=== PATIENT | female | born 1935 | race Caucasian/White ===

== ENCOUNTER → 2020-09-15 10:35 | Outpatient (CLI) | payer OTHER, SELFPAY ==
[2020-09-15 11:21] LABS: COVID19 -Nasal RAPID Negative (Negative)
== END ==
PROVIDERS: PCP Student in an Organized Health Care Education/Training Program; Visit Provider Student in an Organized Health Care Education/Training Program
DX: Z11.8 Encounter for screening for other infectious and parasitic diseases (principal); Z03.818 Encounter for observation for suspected exposure to other biological agents ruled out
CPT/HCPCS: 87635

== ENCOUNTER → 2020-09-16 16:31 | Outpatient (CLI) | payer OTHER, SELFPAY ==
[2020-09-16 17:38] LABS: Alanine Aminotransferase 154 IU/L (<35); Albumin 3.1 g/dL (3.5-5.0); Albumin Globulin Ratio 1.4 (1.0-2.8); Alkaline Phosphatase 142 U/L (38-126); Aspartate Aminotransferase 28 IU/L (14-36); BUN Creatinine Ratio 26.8 (6-22); Bilirubin Total 1.9 mg/dL (0.2-1.3); Blood Urea Nitrogen 15 mg/dL (7-17); Calcium 8.4 mg/dL (8.4-10.2); Carbon Dioxide 33 mmol/L (22-32); Chloride 101 mmol/L (98-107); Estimated Glomerular Filt Rate > 60.0 mL/min (>60); Globulin 2.2 g/dL (1.7-4.1); Glucose 209 mg/dL (80-110); HEMOLYSIS < 15 (0-50); Sodium 135 mmol/L (137-145); Total Protein 5.3 g/dL (6.3-8.2)
[2020-09-16 17:42] LABS: Hematocrit 34.5 % (36-46); Hemoglobin 11.7 g/dL (12.0-16.0); Mean Corpuscular HGB Conc 33.8 % (30-36); Mean Corpuscular Volume 94.6 fL (80-100); Platelet Count 181 X10^3/uL (150-400); Red Blood Cell Count 3.65 X10^6/uL (4.0-5.2); Red Cell Distribution Width 14.1 % (11.6-14.8); White Blood Cell Count 5.6 X10^3/uL (4.5-11.0)
[2020-09-16 18:10] LABS: Neutrophils Absolute Manual 3304 /uL (3000-5900); Poikilocytosis 1+; Total Cells Counted 100
[2020-09-16 19:24] LABS: Vitamin D 25 Hydroxy (D3) 30.3 ng/mL (30.0-100.0)
[2020-09-17 07:42] LABS: Fructosamine 260 umol/L (0-285)
== END ==
PROVIDERS: PCP Student in an Organized Health Care Education/Training Program; Referring Provider Student in an Organized Health Care Education/Training Program; Visit Provider Student in an Organized Health Care Education/Training Program
DX: C85.10 Unspecified B-cell lymphoma, unspecified site (principal); D64.9 Anemia, unspecified; E11.9 Type 2 diabetes mellitus without complications; E55.9 Vitamin D deficiency, unspecified
CPT/HCPCS: 36415; 80053; 82306; 82985; 85025

== ENCOUNTER 2020-09-20 08:08 | Inpatient (IN) | payer OTHER, SELFPAY ==
[2020-09-20] VITALS (24 sets, daily range): BP systolic 115–149; BP diastolic 51–74; PULSE 61–129; RESP 15–20; TEMP 35.8–36.7; O2SAT 94–100; BMI 30.2
--- NOTE | 2020-09-20 08:39 | ED.SKABFB ---
HPI - Skin/Abscess/Foreign Bdy General Chief complaint: Skin/Abscess/Foreign Body Stated complaint: post surgical abcess rt hip Time Seen by Provider: 09/20/20 08:33 Source: patient and family Mode of arrival: Wheelchair Limitations: physical limitation History of Present Illness HPI narrative: Patient is an 85-year-old female history of diabetes, lymphoma COPD presenting with incisional abscess of her right hip. She had a total hip arthroplasty in July in [place]. Since the surgery she has had some swelling which she was told with scar tissue however when she arrived in [place] 1 week ago her daughter noticed that she had some erythema. She was started on Bactrim 4 days ago, all the redness and swelling has continued to worsen. She says it hurts when she walks. She denies any fever or chills. MD complaint: abscess/boil Related Data Home Medications Medication Instructions Recorded Confirmed alprazolam 0.25 mg tablet 0.25 mg PO BEDTIME PRN 09/16/20 09/16/20 diltiazem HCl 240 mg 240 mg PO DAILY 09/16/20 09/16/20 capsule,extended release 24 hr escitalopram oxalate 10 mg tablet 10 mg PO DAILY 09/16/20 09/16/20 gabapentin 100 mg capsule 100 mg PO DAILY 09/16/20 09/16/20 glimepiride 2 mg tablet 2 mg PO DAILY 09/16/20 09/16/20 insulin lispro 100 unit/mL 10 unit SUBCUT TID 09/16/20 09/16/20 subcutaneous pen losartan 50 mg tablet 50 mg PO DAILY 09/16/20 09/16/20 pantoprazole 40 mg tablet,delayed 40 mg PO DAILY 09/16/20 09/16/20 release tramadol 50 mg tablet 50 mg PO TID PRN 09/16/20 09/16/20 Previous Rx's Medication Instructions Recorded insulin glargine U-300 conc 300 22 unit SUBCUT DAILY #6 ml 09/16/20 unit/mL (3 mL) subcutaneous pen sulfamethoxazole 800 1 tab PO Q12H 10 Days #20 tab 09/16/20 mg-trimethoprim 160 mg tablet Allergies Allergy/AdvReac Type Severity Reaction Status Date / Time No Known Drug Allergies Allergy Unverified 09/16/20 15:11 Review of Systems Review of Systems ROS Unobtainable: All systems reviewed & are unremarkable except as noted in HPI and below Constitutional Constitutional: Denies chills, Denies fever(s), Denies lethargy and Denies weakness Cardiovascular Cardiovascular: Denies chest pain, Denies irregular heart rhythm, Denies lightheadedness, Denies palpitations, Denies dyspnea, Denies dyspnea on exertion and Denies orthopnea Respiratory Respiratory: Denies cough, Denies dyspnea, Denies dyspnea on exertion and Denies wheezing Gastrointestinal Gastrointestinal: Denies abdominal pain, Denies change in bowel habits, Denies diarrhea, Denies nausea and Denies vomiting Integumentary/Breasts Skin/Breast: Reports erythema, Reports rash and Reports skin swelling Neurologic Neurologic: Denies weakness Endocrine Endocrine: Denies palpitations Allergic/Immunologic Allergic/Immunologic: Denies wheezing Patient History Medical History Autoimmune hemolytic anemia (Acute) Femur fracture, right (Acute) Social History household members: none Smoking Status: Former smoker alcohol intake: never Smoking Status: Former smoker Substance Use Type: does not use Exam Initial Vital Signs Initial Vital Signs: Vital Signs Temperature 97.6 F 09/20/20 08:10 Pulse Rate 75 09/20/20 08:10 Respiratory Rate 18 09/20/20 08:10 Blood Pressure 133/61 09/20/20 08:10 Pulse Oximetry 97 09/20/20 08:10 GENERAL: Alert pleasant well-appearing elderly female HEENT: Head atraumatic,EOMI, pupils reactive, face symmetric, moist mucous membranes CARDIOVASCULAR: Regular rate and rhythm without murmurs, rubs or gallops. RESPIRATORY: Breath sounds equal bilaterally, no wheezes rales or rhonchi. ABDOMEN: Soft, nontender. Normoactive bowel sounds all 4 quadrants. No guarding or rebound. EXTREMITIES: Normal range of motion, no clubbing or edema. Neurovascularly intact NEUROLOGICAL: Alert and oriented x4.Normal gait and speech. SKIN: Right hip incision is erythematous with swelling in fluctuation no drainage Course Orders Ordered: ED Orders 09/20/20 08:40 C-Reactive Protein Quant Stat Complete Blood Count AUTO DIFF Stat Comprehensive Metabolic Panel Stat Erythrocyte Sedimentation Rate Stat Lactate (Lactic Acid) Stat Procalcitonin Stat 09/20/20 08:43 COVID19 Stat 09/20/20 08:55 Blood Culture Stat 09/20/20 09:52 XR hip w pel if done RT 2V Stat 09/20/20 09:53 Consult to Orthopedic Surgery Stat Vital Signs Vital signs: Vital Signs - 8 hr 09/20/20 08:10 09/20/20 08:48 09/20/20 09:00 Temperature 97.6 F Pulse Rate 75 65 61 Respiratory Rate 18 Blood Pressure 133/61 Pulse Oximetry 97 98 99 09/20/20 09:30 09/20/20 10:05 09/20/20 10:30 Temperature Pulse Rate 61 62 73 Respiratory Rate Blood Pressure 119/59 L Pulse Oximetry 97 98 97 09/20/20 10:31 Temperature Pulse Rate 71 Respiratory Rate Blood Pressure 120/56 L Pulse Oximetry 97 MDM - Skin/Abscess/Foreign Bdy Lab Data Attestation: I reviewed the patient's lab results. Result diagrams: 09/20/20 08:40 09/20/20 08:40 Labs: Lab Results 09/20/20 09/20/20 09/20/20 Range/Units 08:40 08:40 08:40 WBC 5.6 (4.5-11.0) X10^3/uL RBC 3.29 L (4.0-5.2) X10^6/uL Hgb 10.4 L (12.0-16.0) g/dL Hct 30.5 L (36-46) % MCV 92.7 (80-100) fL MCH 31.5 (26-34) PG MCHC 34.0 (30-36) % RDW 13.7 (11.6-14.8) % Plt Count 197 (150-400) X10^3/uL Neut % (Auto) 57.6 (50-75) % Lymph % (Auto) 30.3 (25-40) % Hutchinson % (Auto) 11.9 (3-14) % Eos % (Auto) 0.1 L (2-4) % Baso % (Auto) 0.1 (0-2) % Neut # (Auto) 3200 (1157-1582) /uL Lymph # (Auto) 1700 (3594-9440) /uL Hutchinson # (Auto) 700 (0-900) /uL Eos # (Auto) 0 (0-450) /uL Baso # (Auto) 0 (0-100) /uL ESR (0-20) MM/HR Sodium 134 L (137-145) mmol/L Potassium 4.4 (3.4-5.1) mmol/L Chloride 104 (98-107) mmol/L Carbon Dioxide 27 (22-32) mmol/L BUN 13 (7-17) mg/dL Creatinine 0.72 (0.52-1.04) mg/dL Estimated GFR > 60.0 (>60) mL/min BUN/Creatinine Ratio 18.1 (6-22) Glucose 271 H (80-110) mg/dL Lactate (0.7-2.1) mmol/L Calcium 8.4 (8.4-10.2) mg/dL Total Bilirubin 1.4 H (0.2-1.3) mg/dL AST 19 (14-36) IU/L ALT 40 H (<35) IU/L Alkaline Phosphatase 107 (38-126) U/L C-Reactive Protein (<1.0) mg/dL Total Protein 5.2 L (6.3-8.2) g/dL Albumin 3.0 L (3.5-5.0) g/dL Globulin 2.2 (1.7-4.1) g/dL Albumin/Globulin Ratio 1.4 (1.0-2.8) Procalcitonin < 0.05 (<0.5) ng/mL COVID-19 PCR (Negative) 09/20/20 09/20/20 09/20/20 Range/Units 08:40 08:40 08:40 WBC (4.5-11.0) X10^3/uL RBC (4.0-5.2) X10^6/uL Hgb (12.0-16.0) g/dL Hct (36-46) % MCV (80-100) fL MCH (26-34) PG MCHC (30-36) % RDW (11.6-14.8) % Plt Count (150-400) X10^3/uL Neut % (Auto) (50-75) % Lymph % (Auto) (25-40) % Hutchinson % (Auto) (3-14) % Eos % (Auto) (2-4) % Baso % (Auto) (0-2) % Neut # (Auto) (7601-3681) /uL Lymph # (Auto) (9433-7415) /uL Hutchinson # (Auto) (0-900) /uL Eos # (Auto) (0-450) /uL Baso # (Auto) (0-100) /uL ESR 45 H (0-20) MM/HR Sodium (137-145) mmol/L Potassium (3.4-5.1) mmol/L Chloride (98-107) mmol/L Carbon Dioxide (22-32) mmol/L BUN (7-17) mg/dL Creatinine (0.52-1.04) mg/dL Estimated GFR (>60) mL/min BUN/Creatinine Ratio (6-22) Glucose (80-110) mg/dL Lactate 1.9 (0.7-2.1) mmol/L Calcium (8.4-10.2) mg/dL Total Bilirubin (0.2-1.3) mg/dL AST (14-36) IU/L ALT (<35) IU/L Alkaline Phosphatase (38-126) U/L C-Reactive Protein 4.3 H (<1.0) mg/dL Total Protein (6.3-8.2) g/dL Albumin (3.5-5.0) g/dL Globulin (1.7-4.1) g/dL Albumin/Globulin Ratio (1.0-2.8) Procalcitonin (<0.5) ng/mL COVID-19 PCR (Negative) 09/20/20 Range/Units 08:43 WBC (4.5-11.0) X10^3/uL RBC (4.0-5.2) X10^6/uL Hgb (12.0-16.0) g/dL Hct (36-46) % MCV (80-100) fL MCH (26-34) PG MCHC (30-36) % RDW (11.6-14.8) % Plt Count (150-400) X10^3/uL Neut % (Auto) (50-75) % Lymph % (Auto) (25-40) % Hutchinson % (Auto) (3-14) % Eos % (Auto) (2-4) % Baso % (Auto) (0-2) % Neut # (Auto) (6795-9090) /uL Lymph # (Auto) (0311-4127) /uL Hutchinson # (Auto) (0-900) /uL Eos # (Auto) (0-450) /uL Baso # (Auto) (0-100) /uL ESR (0-20) MM/HR Sodium (137-145) mmol/L Potassium (3.4-5.1) mmol/L Chloride (98-107) mmol/L Carbon Dioxide (22-32) mmol/L BUN (7-17) mg/dL Creatinine (0.52-1.04) mg/dL Estimated GFR (>60) mL/min BUN/Creatinine Ratio (6-22) Glucose (80-110) mg/dL Lactate (0.7-2.1) mmol/L Calcium (8.4-10.2) mg/dL Total Bilirubin (0.2-1.3) mg/dL AST (14-36) IU/L ALT (<35) IU/L Alkaline Phosphatase (38-126) U/L C-Reactive Protein (<1.0) mg/dL Total Protein (6.3-8.2) g/dL Albumin (3.5-5.0) g/dL Globulin (1.7-4.1) g/dL Albumin/Globulin Ratio (1.0-2.8) Procalcitonin (<0.5) ng/mL COVID-19 PCR Negative (Negative) Imaging Data Extremity x-ray #1: Radiologist's Impression: PROCEDURE: XR HIP W PEL IF DONE RT 2V INDICATIONS: pain TECHNIQUE: AP pelvis with lateral view(s) of the right hip(s). COMPARISON: None. FINDINGS: Bones: No fractures or dislocations. Pelvic ring appears intact. No suspicious bony lesions. Right hip arthroplasty has been performed. Soft tissues: The visualized bowel gas pattern is normal. No suspicious soft tissue calcifications. IMPRESSION: Right hip arthroplasty. No acute fracture. No osseous lesion. If symptoms and/or clinical suspicion for pathology persist, further assessment with repeat, or advanced imaging (e.g., CT or bone scan) may be helpful for further assessment. Dictated by: Daryl Thomas M.D. on 09/20/2020 at 9:04 MDM Narrative Medical decision making narrative: Dr. Rendon, consulted. Keep NPO, no iv antibiotics at this time. Will go to OR this afternoon for wash out Dr. Gray accepts Discharge Plan Departure Patient Disposition: Admitted As Inpatient Clinical Impression: Incisional abscess, Status post total replacement of right hip Discharge Date/Time: 09/20/20 11:59 Referrals: Ulises Alva MD [Primary Care Provider] - Admit Date/Time: 09/20/20 10:40 Admit Provider: Nanda Gray
[2020-09-20 08:51] LABS: Add Manual Diff / Slide Review NO; Basophils Absolute Auto 0 /uL (0-100); Basophils Percent Auto 0.1 % (0-2); Eosinophils Absolute Auto 0 /uL (0-450); Eosinophils Percent Auto 0.1 % (2-4); Hematocrit 30.5 % (36-46); Hemoglobin 10.4 g/dL (12.0-16.0); Lymphocytes Absolute Auto 1700 /uL (1100-4500); Lymphocytes Percent Auto 30.3 % (25-40); Mean Corpuscular Hemoglobin 31.5 PG (26-34); Mean Corpuscular Volume 92.7 fL (80-100); Monocytes Absolute Auto 700 /uL (0-900); Monocytes Percent Auto 11.9 % (3-14); Neutrophils Absolute Auto 3200 /uL (1500-7000); Neutrophils Percent Auto 57.6 % (50-75); Platelet Count 197 X10^3/uL (150-400); Red Blood Cell Count 3.29 X10^6/uL (4.0-5.2); Red Cell Distribution Width 13.7 % (11.6-14.8); White Blood Cell Count 5.6 X10^3/uL (4.5-11.0)
[2020-09-20 09:03] LABS: Alanine Aminotransferase 40 IU/L (<35); Albumin Globulin Ratio 1.4 (1.0-2.8); Alkaline Phosphatase 107 U/L (38-126); Aspartate Aminotransferase 19 IU/L (14-36); BUN Creatinine Ratio 18.1 (6-22); Bilirubin Total 1.4 mg/dL (0.2-1.3); Blood Urea Nitrogen 13 mg/dL (7-17); Calcium 8.4 mg/dL (8.4-10.2); Carbon Dioxide 27 mmol/L (22-32); Chloride 104 mmol/L (98-107); Estimated Glomerular Filt Rate > 60.0 mL/min (>60); Globulin 2.2 g/dL (1.7-4.1); Glucose 271 mg/dL (80-110); HEMOLYSIS < 15 (0-50); Lactate (Lactic Acid) 1.9 mmol/L (0.7-2.1); Potassium 4.4 mmol/L (3.4-5.1); Sodium 134 mmol/L (137-145); Total Protein 5.2 g/dL (6.3-8.2)
[2020-09-20 09:16] LABS: COVID19 -Nasal RAPID Negative (Negative)
[2020-09-20 09:17] LABS: Procalcitonin < 0.05 ng/mL (<0.5)
--- NOTE | 2020-09-20 09:52 | DI.RAD.S_ITS ---
PROCEDURE: XR HIP W PEL IF DONE RT 2V INDICATIONS: pain TECHNIQUE: AP pelvis with lateral view(s) of the right hip(s). COMPARISON: None. FINDINGS: Bones: No fractures or dislocations. Pelvic ring appears intact. No suspicious bony lesions. Right hip arthroplasty has been performed. Soft tissues: The visualized bowel gas pattern is normal. No suspicious soft tissue calcifications. IMPRESSION: Right hip arthroplasty. No acute fracture. No osseous lesion. If symptoms and/or clinical suspicion for pathology persist, further assessment with repeat, or advanced imaging (e.g., CT or bone scan) may be helpful for further assessment. Dictated by: Daryl Thomas M.D. on 09/20/2020 at 9:04 Approved by: Daryl Thomas M.D. on 09/20/2020 at 9:05
[2020-09-20 10:09] LABS: C-Reactive Protein Quant 4.3 mg/dL (<1.0)
[2020-09-20 10:19] LABS: Erythrocyte Sedimentation Rate 45 MM/HR (0-20)
--- NOTE | 2020-09-20 13:54 | PM.HP.1 ---
History of Present Illness History of Present Illness Date Patient Seen: 09/20/20 Time Patient Seen: 13:55 Date of Onset of Symptoms: 09/16/20 Chief complaint: post surgical abcess rt hip Narrative: Peace is 85-year-old female with a history of COPD lymphoma and diabetes that had a fall and sustained a right hip fracture on 07/16/2020. This happened when she was living down in [place]. She was previously living independently before the hip fracture. In July she underwent hemiarthroplasty replacement at [facility] is on a with Dr. Orta. She had an intraoperative greater trochanter fracture that was fixed with a claw plate. She states she also had a blood transfusion after the procedure and had a immune reaction to it and had steroids for several weeks. After release from the hospital she was moved to [facility] with her daughter Genesis Crane who is her power of [place] attorney. She is currently capsule anti in the independent living section. She states that even while in the intermediate after the fracture she had always had a area of the incision that was thick and hard. She states she was told this was just scar tissue. Then over the last week or so the distal end of the incision has gotten red and swollen and more painful. She was seen by her PCP Dr. helms on 09/16/2020 and Bactrim was prescribed. Since that time she states the pain and swelling has gotten worse and she believes there is no some drainage. They presented to the emergency room this morning where they were found to have swelling and scant draining at the distal aspect of the incision. Of note she has also been treated for UTI over the last week and just finished the Cipro prescription. She denies any fevers. She has been ambulatory. Over the last week it has become more painful to walk. She also sustained a left proximal humerus fracture during the fall this was treated non operatively. She endorses pain and decreased range of motion in the left shoulder but is otherwise doing well. She takes vitamins. She had a DEXA scan years ago but does not know the results. She does not currently take any bisphosphonates or formal osteoporosis treatment. She has diabetes. She does not know what her current hemoglobin A1c is. States that had been pretty well controlled before her injury. Patient History Medical History (Updated 09/20/20 @ 14:17 by Mariana Rendon MD) Autoimmune hemolytic anemia (Acute) Femur fracture, right (Acute) Family & Social History Social History: household members none Prior Living Arrangements [facility] Facility Safety & Behavioral: Feels Safe in Current Yes Environment Been Physically Hurt or No Threatened By a Person Suicidal Ideation Description None Suicide Plan Description No Plan Tobacco & Substance use: Smoking Status Former smoker alcohol intake never Substance Use Type does not use Meds Home Medications and Allergies Home Medications Medication Instructions Recorded Confirmed Type alprazolam 0.25 mg tablet 0.25 mg PO BEDTIME PRN 09/16/20 09/16/20 History diltiazem HCl 240 mg 240 mg PO DAILY 09/16/20 09/16/20 History capsule,extended release 24 hr escitalopram oxalate 10 mg tablet 10 mg PO DAILY 09/16/20 09/16/20 History gabapentin 100 mg capsule 100 mg PO DAILY 09/16/20 09/16/20 History glimepiride 2 mg tablet 2 mg PO DAILY 09/16/20 09/16/20 History insulin glargine U-300 conc 300 22 unit SUBCUT DAILY #6 ml 09/16/20 09/16/20 Rx unit/mL (3 mL) subcutaneous pen insulin lispro 100 unit/mL 10 unit SUBCUT TID 09/16/20 09/16/20 History subcutaneous pen losartan 50 mg tablet 50 mg PO DAILY 09/16/20 09/16/20 History pantoprazole 40 mg tablet,delayed 40 mg PO DAILY 09/16/20 09/16/20 History release sulfamethoxazole 800 1 tab PO Q12H 10 Days #20 tab 09/16/20 09/16/20 Rx mg-trimethoprim 160 mg tablet tramadol 50 mg tablet 50 mg PO TID PRN 09/16/20 09/16/20 History Allergies Allergy/AdvReac Type Severity Reaction Status Date / Time No Known Drug Allergies Allergy Unverified 09/16/20 15:11 Review of Systems Constitutional Constitutional: Denies anorexia, Denies chills, Denies difficulty sleeping, Denies fatigue and Denies fever(s) Cardiovascular Cardiovascular: Denies chest pain and Denies dyspnea on exertion Respiratory Respiratory: Denies dyspnea on exertion Genitourinary Comments: Endorses recent UTI just finished Cipro prescription Musculoskeletal Musculoskeletal: Reports abnormal gait and Reports arthralgias Comments: Incision swelling and redness right hip. History recent fall hip fracture and hemiarthroplasty Integumentary/Breasts Skin/Breast: Reports erythema and Reports skin swelling Neurologic Neurologic: Reports abnormal gait Endocrine Endocrine: Denies fatigue Hematologic/Lymphatic Comments: Lymphoma. Required transfusion after hip surgery Exam Vital Signs (past 8 hours): - 09/20/20 08:10 09/20/20 08:48 09/20/20 09:00 Temperature 97.6 F Pulse Rate 75 65 61 Respiratory Rate 18 Blood Pressure 133/61 Pulse Oximetry 97 98 99 09/20/20 09:30 09/20/20 10:05 09/20/20 10:30 Temperature Pulse Rate 61 62 73 Respiratory Rate Blood Pressure 119/59 L Pulse Oximetry 97 98 97 09/20/20 10:31 09/20/20 11:00 09/20/20 11:01 Temperature Pulse Rate 71 76 75 Respiratory Rate Blood Pressure 120/56 L 127/57 L Pulse Oximetry 97 99 99 09/20/20 11:30 09/20/20 11:31 09/20/20 12:00 Temperature 98.1 F Pulse Rate 75 75 74 Respiratory Rate 15 Blood Pressure 115/57 L 126/59 L Pulse Oximetry 98 98 100 Oxygen Delivery Method Room Air Narrative Exam Narrative: General examination: Alert oriented female no acute distress, sitting up in bed. Daughter is POA and is at bedside Respiratory exam: Lungs clear to auscultation bilaterally. No use of accessory muscles. Answers questions easily Heart exam regular rate and rhythm Abdomen soft nontender Musculoskeletal exam: Reduced range of motion left shoulder 2nd toe recent trauma has full range of motion of the elbow and wrist. Full range of motion right shoulder elbow and wrist. Left lower extremity negative logroll full range of motion 5/5 dorsiflexion plantar flexion. Soft calfs. Left leg negative logroll. There is a long posterolateral incision lateral aspect extends down along the lateral thigh distal 4 cm show erythema redness swelling fluctuance. No active drainage but there is some crusting. This is tender to palpation. Swelling is localized to this area. Thigh is otherwise soft. Remainder of proximal aspect of incision is pristine and well healed. Calf is soft. 5/5 dorsiflexion plantar flexion. Sensation grossly intact to light touch Objective Labs Result Diagrams: 09/20/20 08:40 09/20/20 08:40 Labs: Laboratory Results - last 24 hr 11/15/20 11/15/20 11/15/20 08:40 08:40 08:40 WBC 5.6 RBC 3.29 L Hgb 10.4 L Hct 30.5 L MCV 92.7 MCH 31.5 MCHC 34.0 RDW 13.7 Plt Count 197 Neut % (Auto) 57.6 Lymph % (Auto) 30.3 Mclean % (Auto) 11.9 Eos % (Auto) 0.1 L Baso % (Auto) 0.1 Neut # (Auto) 3200 Lymph # (Auto) 1700 Mclean # (Auto) 700 Eos # (Auto) 0 Baso # (Auto) 0 ESR Sodium 134 L Potassium 4.4 Chloride 104 Carbon Dioxide 27 BUN 13 Creatinine 0.72 Estimated GFR > 60.0 BUN/Creatinine Ratio 18.1 Glucose 271 H Lactate Calcium 8.4 Total Bilirubin 1.4 H AST 19 ALT 40 H Alkaline Phosphatase 107 C-Reactive Protein Total Protein 5.2 L Albumin 3.0 L Globulin 2.2 Albumin/Globulin Ratio 1.4 Procalcitonin < 0.05 COVID-19 PCR 09/20/20 09/20/20 09/20/20 08:40 08:40 08:40 WBC RBC Hgb Hct MCV MCH MCHC RDW Plt Count Neut % (Auto) Lymph % (Auto) Mclean % (Auto) Eos % (Auto) Baso % (Auto) Neut # (Auto) Lymph # (Auto) Mclean # (Auto) Eos # (Auto) Baso # (Auto) ESR 45 H Sodium Potassium Chloride Carbon Dioxide BUN Creatinine Estimated GFR BUN/Creatinine Ratio Glucose Lactate 1.9 Calcium Total Bilirubin AST ALT Alkaline Phosphatase C-Reactive Protein 4.3 H Total Protein Albumin Globulin Albumin/Globulin Ratio Procalcitonin COVID-19 PCR 09/20/20 08:43 WBC RBC Hgb Hct MCV MCH MCHC RDW Plt Count Neut % (Auto) Lymph % (Auto) Mclean % (Auto) Eos % (Auto) Baso % (Auto) Neut # (Auto) Lymph # (Auto) Mclean # (Auto) Eos # (Auto) Baso # (Auto) ESR Sodium Potassium Chloride Carbon Dioxide BUN Creatinine Estimated GFR BUN/Creatinine Ratio Glucose Lactate Calcium Total Bilirubin AST ALT Alkaline Phosphatase C-Reactive Protein Total Protein Albumin Globulin Albumin/Globulin Ratio Procalcitonin COVID-19 PCR Negative Assessment & Plan Assessment and plan (1) Non Hodgkin's lymphoma: Problem details: Treatment per Internal Medicine. Plan I and D of hip today. Do not anticipate large blood loss from the surgery but will monitor labs postop. Status: Acute (2) Type 2 diabetes mellitus: Problem details: Home medications. Blood sugar management per Internal Medicine. Recommend tight glycemic control to aid with healing. Patient does have history of being on a couple weeks of steroids during her hospitalization after hip fracture so overall present control may not be as ideal as it was previously. Status: Acute (3) History of hemiarthroplasty of hip: Problem details: History of right hemiarthroplasty for hip fracture. Patient had intraoperative greater troch fracture was fixed with a claw plate. Fixation is stable on x-ray. Does have developed abscess at the distal aspect of the incision. On inspection I think this is likely just involving the distal aspect of the incision and not track deep to the joint but I recommend a surgical formal washout and debridement. An intraoperative cultures. Status: Acute (4) Deep incisional surgical site infection: Problem details: Patient presents with swelling of redness and fluctuance at the distal aspect of her long posterolateral incision from [place]. She has had some swelling she states since the surgery but the redness and increased swelling a just began over the last week. On inspection this involves the distal 3-4 cm of the long posterior lateral incision. As the remainder of the incision up closer to the level of the joint is well healed. But she does have an area of fluctuance and impending drainage. She has been recommended for formal operative irrigation and debridement of the abscess including a pulsatile lavage and closure. Discussed in detail the risks benefits and alternatives to the procedure. Discussed of based on the extent of the infection may require additional procedures a repeat washout. If infection does track into the joint we discussed or risks for need for hardware and exchange and/or prolonged IV antibiotics. Based on the appearance today I do not think this is likely I think that all local control of the soft tissue infection of the distal aspect of the wound should be possible. Unfortunately she has been on oral antibiotics for about 5 days. We discussed that a bacteria may not grow on the intraoperative cultures but that she would then be treated empirically. If an organism does grow we will tailor her antibiotics appropriately. Anticipate a few days of IV antibiotics on the floor and if infection is limited as expected within be able to either switch to a short course IV outpatient or to oral antibiotics. The risks and benefits of the procedure have been discussed with the patient and her daughter, LYNDON, and they have been given an opportunity to ask questions. The risks of surgery include but are not limited to infection, need for additional procedures, persistence of pain, damage to nerves and blood vessels, blood loss, DVT, PE, cardiopulmonary complications and . The patient and POA expressed a thorough understanding of the risks and benefits of surgery and has elected to proceed. Consent was signed today. ESR is elevated at 45 and CRP is 4.3. Patient is afebrile. Vital signs are stable. White count is 5.6. She is not on anticoagulation. Hemoglobin is 10.9. COVID test today is negative Status: Acute Quality VTE Deep Vein Thrombosis/Pulmonary Embolism Present on Admission: No
[2020-09-20] MEDS: SODIUM CHLORIDE 0.9% 1,000 ML 75 ML IV (13:57)
--- NOTE | 2020-09-20 14:19 | PM.PREOP ---
Pre-operative Note COVID-19 COVID-19 status: Negative Result date/Date tested (Pos, Neg/Pending): 09/20/20 Interval Note History & Physical reviewed/Exam performed by Physician: Yes Changes to H&P: No
--- NOTE | 2020-09-20 14:40 | PM.OP.1 ---
Operative Date/Time/Diagnoses Date of procedure: 09/20/20 Time of procedure: 15:10 Pre-op diagnosis: Deep surgical site incision infection History hemiarthroplasty for right hip fracture Diabetes type 2 Lymphoma Post-op diagnosis: same Procedure & Clinicians Procedure: Irrigation debridement right hip surgical site infection CPT code 38051 Same procedure as scheduled: Yes Indications: Patient is an 85-year-old female with a history of diabetes type 2 and lymphoma that sustained a right hip fracture in July of 2020 while she was in [place]. This was fixed with a hemiarthroplasty. She did intra greater troch fracture that was fixed with a claw plate. Since then she was discharged and moved to [facility]. Over the last week she has noticed erythema redness and increased swelling of the distal aspect of her incision. She is then to have a infection and abscess at the distal aspect of her incision was indicated for formal operative debridement and cultures. The risks and benefits of the procedure have been discussed with the patient and her POA which is her daughter. They have been given the opportunity to ask questions. The risks of surgery include but are not limited to infection, persistence of pain, need for additional procedures, damage to nerves and blood vessels, posttraumatic arthritis, DVT, PE, cardiopulmonary complications and . The patient expressed a thorough understanding of the risks and benefits of surgery and has elected to proceed. Consent was signed. Surgeon: Mariana Rendon Click Yes if Unassisted: Yes Anesthesia Type: General and Local Operative Notes Findings: Deep infection with purulence abscess at the distal 5 cm of incision of violating the fascia but no tracking proximally to the hardware. Closure Type: primary Specimen(s): other (Culture and tissue sent for Gram stain, culture and PCR) Prosthetic devices, grafts, tissues, transplants, or devices: Cultures and tissue sent. Estimated Blood Loss (mL): 20 Blood products transfused: none Tourniquet time (min): 0 Procedure in detail: Patient was seen in the preoperative area the site of surgery was marked and informed consent confirmed. Patient was brought back to the operating room by the anesthesia team positioned supine on the operative table. A general anesthetic was administered. The patient was then positioned sloppy lateral with ipsilateral hip bumps. An SCD was placed on the down lower extremity. The right lower extremity was prepped and draped in the standard sterile fashion. A formal time-out procedure was performed confirming the patient's side and site of surgery. Antibiotics were held for intraoperative cultures. Attention turned to the patient's right thigh. Distal 5 cm of the incision a demonstrated erythema and swelling. Proximal aspect of the incision was intact without erythema. Skin blade was used to make an elliptical excision of the distal sinus tract directly over the distal 5 cm of the incision. Thick purulence was immediately encountered. The incision was taken down the skin subcutaneous tissue the abscess of violated the fascia and tracked deep to the distal femur. Purulence was evacuated. Culture swabs were taken as well as tissue samples for Gram stain, aerobic and anaerobic cultures and bacterial PCR. Once this was completed intraoperative antibiotics were given. The extent of the infection appeared to be localized to the distal aspect of the incision and there was no tracking proximally or distally beyond the previously defined extent. Devitalized subcutaneous tissue fascia muscle and skin were excised. And debrided using the rongeur and curette. The wound was then irrigated with 3 L pulsatile lavage. Medium Hemovac drain was placed. 1 g of vancomycin powder was placed within the wound and the wound was closed in standard layered fashion with 0 PDS and 2-0 PDS and 3-0 nylon in the skin. An Aquacel dressing was placed. Drapes removed and the patient was woken from anesthesia and taken to recovery room in good condition. There no immediate complications from this procedure. Complications: none Post-operative Condition: stable Disposition: PACU Plan for aftercare: Weightbear as tolerated. Empiric IV antibiotics. IV vancomycin. Will tailor based on cultures. Drain will be removed tomorrow
--- NOTE | 2020-09-20 14:52 | PC.NURSE ---
Day shift: Pt off unit for I&D at approx 1500.
[2020-09-20] MEDS: LACTATED RINGERS 1,000 ML 42 ML IV (15:06)
[2020-09-20] MEDS: CEFAZOLIN 2 GM/100 ML FROZ.PIGGY IV (15:32)
--- NOTE | 2020-09-20 15:41 | SUR.OPER ---
Supine on padded OR bed, head on pillow, arms secured on padded arm boards at <90 degrees abduction, legs uncrossed, blanket bump under right hip, gel bump under right thigh, safety belt at abdomen, tape over blanket over lower left leg, right leg controlled by surgeon.
[2020-09-20] MEDS: VANCOMYCIN 1,000 MG VIAL 1000 MG TOP (15:52)
[2020-09-20] MEDS: BUPIVACAINE 0.25% W/ EPI (PF) 10 ML VIAL 20 ML INJ (15:53)
--- NOTE | 2020-09-20 15:55 | P.HP_ITS ---
History of Present Illness History of Present Illness Date Patient Seen: 09/20/20 Chief complaint: post surgical abcess rt hip Narrative: The patient is an 85-year-old female with a history of hypertension, type 2 diabetes, GERD, osteoporosis, who underwent right hip replacement in July this year. The patient was living in [place] at the time. She was then sent to [facility] facility. At the usp facility she had some soreness over the right hip. This was felt to be due to some scar tissue. The patient moved to [facility] on Monday to live with her daughter. Upon arrival the daughter noted the right hip was erythematous and warm. She was seen by Dr. Eng who started her on TMP sulfa for possible infection. This morning the patient's daughter noted the right hip was swollen red warm and tender. There was an area of fluctuance as well. Patient was brought to the emergency department for evaluation. In the emergency room she was seen by Dr. Cantu from Orthopedic surgery. Arrangements were made to take her to the OR for an I and D of right hip abscess. Patient History Medical History (Updated 09/20/20 @ 15:58 by Nanda Gray MD) Anemia (Inactive) Autoimmune hemolytic anemia (Acute) Femur fracture, right (Acute) GERD (gastroesophageal reflux disease) (Inactive) Lumbar radiculopathy (Inactive) Non Hodgkin's lymphoma (Inactive) Spinal stenosis (Inactive) Type 2 diabetes mellitus (Inactive) Vitamin D insufficiency (Inactive) Surgical History (Updated 09/20/20 @ 15:58 by Nanda Gray MD) History of hemiarthroplasty of hip (Inactive) Family & Social History Family History (Updated 09/20/20 @ 15:59 by Nanda Gray MD) Father Stroke Mother Dermatomyositis Social History: household members none Prior Living Arrangements Long Term Facility Safety & Behavioral: Feels Safe in Current Yes Environment Been Physically Hurt or No Threatened By a Person Suicidal Ideation Description None Suicide Plan Description No Plan Tobacco & Substance use: Smoking Status Former smoker alcohol intake never Substance Use Type does not use Meds Home Medications and Allergies Home Medications Medication Instructions Recorded Confirmed Type alprazolam 0.25 mg tablet 0.25 mg PO BEDTIME PRN 09/16/20 09/16/20 History diltiazem HCl 240 mg 240 mg PO DAILY 09/16/20 09/16/20 History capsule,extended release 24 hr escitalopram oxalate 10 mg tablet 10 mg PO DAILY 09/16/20 09/16/20 History gabapentin 100 mg capsule 100 mg PO DAILY 09/16/20 09/16/20 History glimepiride 2 mg tablet 2 mg PO DAILY 09/16/20 09/16/20 History insulin glargine U-300 conc 300 22 unit SUBCUT DAILY #6 ml 09/16/20 09/16/20 Rx unit/mL (3 mL) subcutaneous pen insulin lispro 100 unit/mL 10 unit SUBCUT TID 09/16/20 09/16/20 History subcutaneous pen losartan 50 mg tablet 50 mg PO DAILY 09/16/20 09/16/20 History pantoprazole 40 mg tablet,delayed 40 mg PO DAILY 09/16/20 09/16/20 History release sulfamethoxazole 800 1 tab PO Q12H 10 Days #20 tab 09/16/20 09/16/20 Rx mg-trimethoprim 160 mg tablet tramadol 50 mg tablet 50 mg PO TID PRN 09/16/20 09/16/20 History Allergies Allergy/AdvReac Type Severity Reaction Status Date / Time No Known Drug Allergies Allergy Unverified 09/16/20 15:11 Review of Systems Review of Systems ROS: Yes All systems reviewed with the patient and are negative except as otherwise documented Exam Vital Signs (past 8 hours): - 09/20/20 08:10 09/20/20 08:48 09/20/20 09:00 Temperature 97.6 F Pulse Rate 75 65 61 Respiratory Rate 18 Blood Pressure 133/61 Pulse Oximetry 97 98 99 09/20/20 09:30 09/20/20 10:05 09/20/20 10:30 Temperature Pulse Rate 61 62 73 Respiratory Rate Blood Pressure 119/59 L Pulse Oximetry 97 98 97 09/20/20 10:31 09/20/20 11:00 09/20/20 11:01 Temperature Pulse Rate 71 76 75 Respiratory Rate Blood Pressure 120/56 L 127/57 L Pulse Oximetry 97 99 99 09/20/20 11:30 09/20/20 11:31 09/20/20 12:00 Temperature 98.1 F Pulse Rate 75 75 74 Respiratory Rate 15 Blood Pressure 115/57 L 126/59 L Pulse Oximetry 98 98 100 Oxygen Delivery Method Room Air Narrative Exam Narrative: Pleasant elderly female lying in bed in no obvious distress HEENT: Normocephalic atraumatic, extraocular muscles are intact, oropharynx is clear Lungs: Clear to auscultation Cardiac exam: Regular rate and rhythm normal S1-S2 Abdomen: Soft nontender nondistended Extremities: Right hip reveals an incision with erythema, fluctuance, tenderness, and warmth Lower extremity no edema Neuro exam is nonfocal Objective Labs Result Diagrams: 09/20/20 08:40 09/20/20 08:40 Labs: Laboratory Results - last 24 hr 09/20/20 09/20/20 09/20/20 08:40 08:40 08:40 WBC 5.6 RBC 3.29 L Hgb 10.4 L Hct 30.5 L MCV 92.7 MCH 31.5 MCHC 34.0 RDW 13.7 Plt Count 197 Neut % (Auto) 57.6 Lymph % (Auto) 30.3 [place] % (Auto) 11.9 Eos % (Auto) 0.1 L Baso % (Auto) 0.1 Neut # (Auto) 3200 Lymph # (Auto) 1700 [place] # (Auto) 700 Eos # (Auto) 0 Baso # (Auto) 0 ESR Sodium 134 L Potassium 4.4 Chloride 104 Carbon Dioxide 27 BUN 13 Creatinine 0.72 Estimated GFR > 60.0 BUN/Creatinine Ratio 18.1 Glucose 271 H Lactate Calcium 8.4 Total Bilirubin 1.4 H AST 19 ALT 40 H Alkaline Phosphatase 107 C-Reactive Protein Total Protein 5.2 L Albumin 3.0 L Globulin 2.2 Albumin/Globulin Ratio 1.4 Procalcitonin < 0.05 COVID-19 PCR 09/20/20 09/20/20 09/20/20 08:40 08:40 08:40 WBC RBC Hgb Hct MCV MCH MCHC RDW Plt Count Neut % (Auto) Lymph % (Auto) [place] % (Auto) Eos % (Auto) Baso % (Auto) Neut # (Auto) Lymph # (Auto) [place] # (Auto) Eos # (Auto) Baso # (Auto) ESR 45 H Sodium Potassium Chloride Carbon Dioxide BUN Creatinine Estimated GFR BUN/Creatinine Ratio Glucose Lactate 1.9 Calcium Total Bilirubin AST ALT Alkaline Phosphatase C-Reactive Protein 4.3 H Total Protein Albumin Globulin Albumin/Globulin Ratio Procalcitonin COVID-19 PCR 09/20/20 08:43 WBC RBC Hgb Hct MCV MCH MCHC RDW Plt Count Neut % (Auto) Lymph % (Auto) [place] % (Auto) Eos % (Auto) Baso % (Auto) Neut # (Auto) Lymph # (Auto) [place] # (Auto) Eos # (Auto) Baso # (Auto) ESR Sodium Potassium Chloride Carbon Dioxide BUN Creatinine Estimated GFR BUN/Creatinine Ratio Glucose Lactate Calcium Total Bilirubin AST ALT Alkaline Phosphatase C-Reactive Protein Total Protein Albumin Globulin Albumin/Globulin Ratio Procalcitonin COVID-19 PCR Negative Assessment & Plan Assessment & Plan narrative: Impression 1. 85-year-old female admitted to the hospital for a right hip infection -patient is status post right hip arthroplasty -incision appears to be infected with an underlying abscess -plans underway for an I&D -ongoing antibiotics for superficial cellulitis as well 2. Type 2 diabetes -hold oral medications in the hospice -will continue basal bolus insulin 3. GERD -will continue proton pump inhibitor 4. Hypertension -continue losartan and Cardizem 5. Depression and anxiety -continue Apresoline and Lexapro Patient indicates she is DNR DNI will note that her record accordingly Patient's surrogate caregiver is her daughter who was at the bedside Quality VTE Deep Vein Thrombosis/Pulmonary Embolism Present on Admission: No
--- NOTE | 2020-09-20 16:26 | SUR.PHASEI ---
Pt received to PACU at 1609 after general anesthesia. Report received from Dr Acosta and LALITA Tsang. Pt denies numbness/tingling to RLE. 2+ pedal pulses. Denies pain. right hip devyn D/I.
--- NOTE | 2020-09-20 16:38 | P.PN_ITS ---
Subjective Subjective Date Patient Seen: 09/20/20 Time Patient Seen: 16:38 Interval history: Status post I and D surgical site infection right hip 85-year-old female status post hip replacement for hip fracture. Surgery done in [place] in July of 2020 One week of increased swelling and pain at distal incision. Postop day 0 I and D of surgical site infection and abscess. Abscess was localized to the distal 5 cm of the incision. No hardware was encountered. It was deep and did violate the fascia. Abscess was drained. Vancomycin powder was placed. Hemovac drain was placed. Instructions: Weightbear as tolerated Remove Hemovac drain on postop day 1 Follow-up cultures. Will be on empiric vancomycin. Recommend 2 weeks IV antibiotics for deep infection. Again infection was deep in did violate the fascia but did not track towards any of the hardware Patient also had non operative left shoulder fracture. This is as tolerated. Follow-up in 2 weeks in orthopedic clinic for suture removal and wound check. Exam Vital Signs (past 8 hours): - 09/20/20 08:48 09/20/20 09:00 09/20/20 09:30 Temperature Pulse Rate 65 61 61 Respiratory Rate Blood Pressure Pulse Oximetry 98 99 97 09/20/20 10:05 09/20/20 10:30 09/20/20 10:31 Temperature Pulse Rate 62 73 71 Respiratory Rate Blood Pressure 119/59 L 120/56 L Pulse Oximetry 98 97 97 09/20/20 11:00 09/20/20 11:01 09/20/20 11:30 Temperature Pulse Rate 76 75 75 Respiratory Rate Blood Pressure 127/57 L Pulse Oximetry 99 99 98 09/20/20 11:31 09/20/20 12:00 09/20/20 16:09 Temperature 98.1 F 97.6 F Pulse Rate 75 74 77 Respiratory Rate 15 16 Blood Pressure 115/57 L 126/59 L 131/57 L Pulse Oximetry 98 100 94 09/20/20 16:14 09/20/20 16:19 09/20/20 16:24 Temperature 97.2 F L Pulse Rate 79 78 75 Respiratory Rate 16 16 20 Blood Pressure 145/62 H 137/62 144/51 H Pulse Oximetry 95 97 94 09/20/20 16:29 Temperature Pulse Rate 74 Respiratory Rate 20 Blood Pressure 145/61 H Pulse Oximetry 96 Oxygen Delivery Method Room Air Objective Labs Result Diagrams: 09/20/20 08:40 09/20/20 08:40 Labs: Laboratory Results - last 24 hr 09/20/20 09/20/20 09/20/20 08:40 08:40 08:40 WBC 5.6 RBC 3.29 L Hgb 10.4 L Hct 30.5 L MCV 92.7 MCH 31.5 MCHC 34.0 RDW 13.7 Plt Count 197 Neut % (Auto) 57.6 Lymph % (Auto) 30.3 [place] % (Auto) 11.9 Eos % (Auto) 0.1 L Baso % (Auto) 0.1 Neut # (Auto) 3200 Lymph # (Auto) 1700 [place] # (Auto) 700 Eos # (Auto) 0 Baso # (Auto) 0 ESR Sodium 134 L Potassium 4.4 Chloride 104 Carbon Dioxide 27 BUN 13 Creatinine 0.72 Estimated GFR > 60.0 BUN/Creatinine Ratio 18.1 Glucose 271 H Lactate Calcium 8.4 Total Bilirubin 1.4 H AST 19 ALT 40 H Alkaline Phosphatase 107 C-Reactive Protein Total Protein 5.2 L Albumin 3.0 L Globulin 2.2 Albumin/Globulin Ratio 1.4 Procalcitonin < 0.05 COVID-19 PCR 09/20/20 09/20/20 09/20/20 08:40 08:40 08:40 WBC RBC Hgb Hct MCV MCH MCHC RDW Plt Count Neut % (Auto) Lymph % (Auto) [place] % (Auto) Eos % (Auto) Baso % (Auto) Neut # (Auto) Lymph # (Auto) [place] # (Auto) Eos # (Auto) Baso # (Auto) ESR 45 H Sodium Potassium Chloride Carbon Dioxide BUN Creatinine Estimated GFR BUN/Creatinine Ratio Glucose Lactate 1.9 Calcium Total Bilirubin AST ALT Alkaline Phosphatase C-Reactive Protein 4.3 H Total Protein Albumin Globulin Albumin/Globulin Ratio Procalcitonin COVID-19 PCR 09/20/20 08:43 WBC RBC Hgb Hct MCV MCH MCHC RDW Plt Count Neut % (Auto) Lymph % (Auto) [place] % (Auto) Eos % (Auto) Baso % (Auto) Neut # (Auto) Lymph # (Auto) [place] # (Auto) Eos # (Auto) Baso # (Auto) ESR Sodium Potassium Chloride Carbon Dioxide BUN Creatinine Estimated GFR BUN/Creatinine Ratio Glucose Lactate Calcium Total Bilirubin AST ALT Alkaline Phosphatase C-Reactive Protein Total Protein Albumin Globulin Albumin/Globulin Ratio Procalcitonin COVID-19 PCR Negative Assessment & Plan Post-op Postoperative Procedures: Procedures Operation Date: 09/20/20 15:00 Actual Procedures Side Surgeon p Incision and Drainage Wound/Extremity Right Hip Right Mariana Rendon MD Quality VTE Deep Vein Thrombosis/Pulmonary Embolism Present on Admission: No
[2020-09-20] MEDS: SODIUM CHLORIDE 0.9% 1,000 ML 84 ML IV ×2 (17:05→22:57)
[2020-09-20 18:05] LABS: BUN Creatinine Ratio 17.8 (6-22); Blood Urea Nitrogen 13 mg/dL (7-17); Calcium 8.5 mg/dL (8.4-10.2); Carbon Dioxide 24 mmol/L (22-32); Chloride 107 mmol/L (98-107); Estimated Glomerular Filt Rate > 60.0 mL/min (>60); Glucose 265 mg/dL (80-110); HEMOLYSIS < 15 (0-50); Phosphorous 3.5 mg/dL (2.8-4.1); Potassium 4.5 mmol/L (3.4-5.1); Sodium 134 mmol/L (137-145)
[2020-09-20 18:06] LABS: Hemoglobin A1C% w Est Avg Glu 6.5 % (4.0-6.0)
[2020-09-20] MEDS: TRAMADOL 50 MG TABLET PO (18:10)
[2020-09-20] MEDS: VANCOMYCIN 750 MG/150 ML FROZ.PIGGY 150 MG IV (18:10)
[2020-09-20] MEDS: HEPARIN 5,000 UNIT/ML VIAL 5000 UNIT SUBCUT (20:48)
[2020-09-20] MEDS: DOCUSATE 100 MG CAPSULE PO (20:48)
[2020-09-20] MEDS: ACETAMINOPHEN 325 MG TABLET 975 MG PO (20:48)
[2020-09-20] MEDS: SODIUM CHLORIDE 0.9% 500 ML IV (21:25)
[2020-09-21] VITALS (7 sets, daily range): BP systolic 106–140; BP diastolic 55–76; PULSE 84–144; RESP 16–18; TEMP 36.2–37.3; O2SAT 98–99
[2020-09-21] MEDS: TRAMADOL 50 MG TABLET PO (02:35)
[2020-09-21 06:48] LABS: Add Manual Diff / Slide Review NO; Basophils Absolute Auto 0 /uL (0-100); Basophils Percent Auto 0.1 % (0-2); Eosinophils Absolute Auto 0 /uL (0-450); Eosinophils Percent Auto 0.1 % (2-4); Hematocrit 29.6 % (36-46); Lymphocytes Absolute Auto 1600 /uL (1100-4500); Lymphocytes Percent Auto 40.5 % (25-40); Mean Corpuscular HGB Conc 33.7 % (30-36); Mean Corpuscular Hemoglobin 31.2 PG (26-34); Mean Corpuscular Volume 92.8 fL (80-100); Monocytes Absolute Auto 500 /uL (0-900); Monocytes Percent Auto 11.7 % (3-14); Neutrophils Absolute Auto 1900 /uL (1500-7000); Neutrophils Percent Auto 47.6 % (50-75); Platelet Count 190 X10^3/uL (150-400); Red Blood Cell Count 3.19 X10^6/uL (4.0-5.2)
[2020-09-21 06:59] LABS: BUN Creatinine Ratio 18.6 (6-22); Blood Urea Nitrogen 13 mg/dL (7-17); Carbon Dioxide 27 mmol/L (22-32); Chloride 107 mmol/L (98-107); Estimated Glomerular Filt Rate > 60.0 mL/min (>60); Glucose 125 mg/dL (80-110); HEMOLYSIS < 15 (0-50); Potassium 4.3 mmol/L (3.4-5.1); Sodium 134 mmol/L (137-145)
[2020-09-21 07:02] LABS: C-Reactive Protein Quant 4.2 mg/dL (<1.0)
[2020-09-21] MEDS: ACETAMINOPHEN 325 MG TABLET 975 MG PO ×3 (08:15→21:53)
[2020-09-21] MEDS: DOCUSATE 100 MG CAPSULE PO ×2 (08:16→21:54)
[2020-09-21] MEDS: GABAPENTIN 100 MG CAPSULE PO (08:16)
[2020-09-21] MEDS: HEPARIN 5,000 UNIT/ML VIAL 5000 UNIT SUBCUT ×2 (08:16→21:54)
[2020-09-21] MEDS: LOSARTAN 50 MG TABLET PO (08:16)
[2020-09-21] MEDS: ESCITALOPRAM 10 MG TABLET PO (08:20)
[2020-09-21] MEDS: dilTIAZem CD 240 MG CAP PO (08:20)
[2020-09-21] MEDS: INSULIN ASPART 100 UNIT/ML INSULN PEN SUBCUT (08:20)
--- NOTE | 2020-09-21 08:54 | DI.RAD.S_ITS ---
PROCEDURE: XR CHEST 1V INDICATIONS: PICC placement TECHNIQUE: One view of the chest was acquired. COMPARISON: None. FINDINGS: Surgical changes and devices: Right PICC with distal tip overlying the distal SVC .+ Lungs and pleura: Lungs are clear. No pleural effusions or pneumothorax. Mediastinum: Mediastinal contours appear normal. Heart size is mildly enlarged. Bones and chest wall: No suspicious bony lesions. Overlying soft tissues appear unremarkable. Partially visualized left humeral head, appearing consistent with nonacute fracture. IMPRESSION: PICC as above. Dictated by: Bessie Ball M.D. on 09/21/2020 at 9:15 Approved by: Bessie Ball M.D. on 09/21/2020 at 9:17
[2020-09-21] MEDS: SODIUM CHLORIDE 0.9% FLUSH 10 ML IV ×2 (09:06→21:54)
--- NOTE | 2020-09-21 09:08 | CM.DPNOTE ---
Faxed H&P, OP note, latest PN and FS to [facility] letting them know the pt. may need long-term facility. Will scan fax confirmation sheets to EMR. Peace Shea CM Pulverizing And Sifting Operator.
--- NOTE | 2020-09-21 09:12 | CM.DPNOTE ---
Faxed H&P, FS, lates PN and MAR per Katina to [facility]. Will scan fax confirmation. Peace Shea CM Skip Loader.
--- NOTE | 2020-09-21 09:36 | P.PN_ITS ---
Subjective Subjective Date Patient Seen: 09/21/20 Time Patient Seen: 09:37 Interval history: POD #1 s/p post I and D surgical site infection right hip with Dr. Rendon. 85-year-old female status post hip replacement for hip fracture. Surgery done in [place] in July of 2020 One week of increased swelling and pain at distal incision. She is doing well this AM. No complaints of pain. She is about to work with PT. Hemovac output last shift was 30 cc. Exam Vital Signs (past 8 hours): - 09/21/20 07:48 Temperature 97.5 F L Pulse Rate 84 Respiratory Rate 16 Blood Pressure 135/65 Pulse Oximetry 99 Oxygen Delivery Method Room Air Oxygen Flow Rate 0 Narrative Exam Narrative: Patient lying in bed in NAD. Her calves are soft, compressible, and nontender bilaterally. SILT throughout BLEs. She is able to actively dorsiflex and plantarflex. SCDs just removed as she is about to get up with PT. Hemovac in place and draining. Aquacel has minimal shadow drainage. Objective Labs Result Diagrams: 09/21/20 05:37 09/21/20 05:37 Labs: Laboratory Results - last 24 hr 09/20/20 09/20/20 09/20/20 08:40 08:40 08:40 WBC RBC Hgb Hct MCV MCH MCHC RDW Plt Count Neut % (Auto) Lymph % (Auto) [place] % (Auto) Eos % (Auto) Baso % (Auto) Neut # (Auto) Lymph # (Auto) [place] # (Auto) Eos # (Auto) Baso # (Auto) ESR 45 H Sodium Potassium Chloride Carbon Dioxide BUN Creatinine Estimated GFR BUN/Creatinine Ratio Glucose Hemoglobin A1c 6.5 H Calcium Phosphorus C-Reactive Protein 4.3 H Albumin 09/20/20 09/21/20 09/21/20 08:40 05:37 05:37 WBC 4.0 L RBC 3.19 L Hgb 10.0 L Hct 29.6 L MCV 92.8 MCH 31.2 MCHC 33.7 RDW 14.0 Plt Count 190 Neut % (Auto) 47.6 L Lymph % (Auto) 40.5 H [place] % (Auto) 11.7 Eos % (Auto) 0.1 L Baso % (Auto) 0.1 Neut # (Auto) 1900 Lymph # (Auto) 1600 [place] # (Auto) 500 Eos # (Auto) 0 Baso # (Auto) 0 ESR Sodium 134 L 134 L Potassium 4.5 4.3 Chloride 107 107 Carbon Dioxide 24 27 BUN 13 13 Creatinine 0.73 0.70 Estimated GFR > 60.0 > 60.0 BUN/Creatinine Ratio 17.8 18.6 Glucose 265 H 125 H D Hemoglobin A1c Calcium 8.5 8.0 L Phosphorus 3.5 C-Reactive Protein Albumin 3.0 L 09/21/20 05:37 WBC RBC Hgb Hct MCV MCH MCHC RDW Plt Count Neut % (Auto) Lymph % (Auto) [place] % (Auto) Eos % (Auto) Baso % (Auto) Neut # (Auto) Lymph # (Auto) [place] # (Auto) Eos # (Auto) Baso # (Auto) ESR Sodium Potassium Chloride Carbon Dioxide BUN Creatinine Estimated GFR BUN/Creatinine Ratio Glucose Hemoglobin A1c Calcium Phosphorus C-Reactive Protein 4.2 H Albumin Assessment & Plan Post-op Postoperative Procedures: Procedures Operation Date: 09/20/20 15:00 Actual Procedures Side Surgeon p Incision and Drainage Wound/Extremity Right Hip Right Mariana Rendon MD POD #1 s/p I+D of right hip. She will work with PT this morning and be Weightbearing as tolerated. Ok to remove Hemovac drain on postop day 1. Awaiting culture results. Will be on empiric vancomycin. Recommend 2 weeks IV antibiotics for deep infection. Patient also had non operative left shoulder fracture. This is as tolerated. Follow-up in 2 weeks in orthopedic clinic for suture removal and wound check. Quality VTE Deep Vein Thrombosis/Pulmonary Embolism Present on Admission: No
--- NOTE | 2020-09-21 10:41 | CM.DANOTE ---
Addendum entered by Katelin Conklin R.N. 09/21/20 12:49: Gordo at [facility] called back, and stated that if patient is going to continue on twice a day Vancomycin, cost will be about $100.00 per week. Went ahead and updated daughter, Genesis. Genesis indicated, if that's how much she has to pay, then that's the way it will have to be. Noticed that P.T. indicated home with assistance. Insurance may not qualify patient for correction. Gordo will also be intouch with daughter. Addendum entered by Katelin Conklin R.N. 09/21/20 11:33: Spoke to Marilynn at [facility] to inquire upon availabilities, since referral was sent to them as well. She indicated that she had about 4 beds, but some given to [facility]. Stated, it's a day by day basis. Will continue to keep in touch. Patient has not yet worked with P.T. as well. Addendum entered by Katelin Conklin R.N. 09/21/20 11:09: Daughter had left, but left a Medicare Choice List with patient at bedside. She is on wound precautions at this time. Original Note: DCP: Case received, EMR reviewed and met with patient. Daughter, Genesis Crane, was also at bedside. Introduced self and role. Was able to meet with patient and obtain some history regarding her past and current living situation, as well as baseline activity prior to hospitalization. DCP assessment completed with information currently available. Patient is an 85 year old female who admitted yesterday morning to the care of the hospitalist/surgical team. PCP: Dr. Alva. Payer: confirmed: [employer]age. Patient came to the hospital secondary to having a post surgical abscess. Patient had wash out, of her hip area. Patient had been diagnosed with an incisional abscess. She has history of COPD, lymphoma, as well as diabetes. Patient's daughter, Genesis, was in her room. Her phone number is clarified as: [phone]. Daughter indicated that her mother came from a skilled rehab facility in [place], [place]. Patient resides at [facility], and daughter has been staying with her until she gets adjusted. Daughter indicated that she can do her own showers. Discussed discharge planning. Daughter is hopeful that she can return to [facility] with her IV antibiotics, if [facility] will allow. Have already sent referrals to [facility] and [facility], since she has [employer] Medicare Advantage. Romana at [facility] confirmed acceptance, but would need to obtain an authorization from [facility]. This also depends upon how patient does with P.T, who have not yet worked with her. Sent referral over to [facility] as well. Spoke to Godro at [facility] who stated that they have had [employer] patients before. Called [facility], and spoke to Clover, who is grant administrator. She mentioned that they can have a patient with IV and medications, but they can't manage, since it is an [facility] [place] [facility] facility. They allow home health/[facility], since they are essential personnel. They also require an updated COVID as well, which would have to be brought in by patient, since they do not have fax capabilities. P: DCP to continue to follow. Will update daughter and go over plan. Will bring in Medicare Choice List, as well, showing different facilities, as well as home health agencies. Katelin Conklin, RN/Professor Of Family Medicine
--- NOTE | 2020-09-21 11:00 | PT.IIE ---
Current Diagnoses Type 2 diabetes mellitus without complications (09/20/20) Infection following a procedure, deep incisional surgical site, initial encounter (09/20/20) Presence of unspecified artificial hip joint (09/20/20) Surgery Performed Operation Date: 09/20/20 15:00 Actual Procedures p Incision and Drainage Wound/Extremity Right Hip(Right) - Mariana Rendon MD Surgical History (Last Updated 09/20/20 @ 15:58 by Nanda Gray MD) History of hemiarthroplasty of hip Medical History (Last Updated 09/20/20 @ 15:58 by Nanda Gary MD) Anemia Autoimmune hemolytic anemia Femur fracture, right GERD (gastroesophageal reflux disease) Lumbar radiculopathy Non Hodgkin's lymphoma Spinal stenosis Type 2 diabetes mellitus Vitamin D insufficiency Physical Therapy Inpatient Evaluation/Re-Eval M1 PT/OT-IP Prior Functional Status Start: 09/21/20 08:35 Freq: NEEDED Status: Active Protocol: Document 09/21/20 10:34 DE (Rec: 09/21/20 11:18 DE [id number]) Medical Review Prior Functional Status Medical History Reviewed Yes Diet/Fluid Consistency Regular Communication WNL. No deficits noted. Able to make needs known. Mobility and Gait Modified IND with use of a pick-up walker. Pt reports she furniture walked. Activities of Daily Living and IADL's IND with most ADLs and IADLs including driving. Pt had grocery delievered to her home and had hired house keepers for cleaning. Pt lived alone in [place]. Prior Functional Level (Other details) Pt reports she had 2 falls within the last 6 months. Social History Household Members none Living Arrangements Halfway Facility Number of Floors (Floors) One Floor Number of Stairs To Enter/Railing? 0 OSITO Home Environment Standard Height Toilet,Built- In Shower Seat Home Equipment Four Wheel Walker,Straight Cane,Raised Toilet Seat w/ Armrests,Hand Held Shower, Rn Iv Therapy,Hospital Bed,Bed Rails ,Grab Bars Near Toilet Employment Status Retired Additional Social History Comment Pt moved from [place] a week ago, where she lived alone. She now lives in [facility] and her daughter lives closeby who will be able to help if needed. Pt has a pick-up walker. M2 PT-IP Current Condition Start: 09/21/20 08:35 Freq: NEEDED Status: Active Protocol: Document 09/21/20 10:34 DE (Rec: 09/21/20 11:18 DE [id number]) Physical Therapy Current Condition Current Condition Evaluation Date 09/21/20 Treatment Diagnosis I&D R hip; Difficulty with walking Onset Date 09/20/20 Weight Bearing Status Weight Bearing Status Weight Bear as Tolerated M3 PT-IP Subjective Start: 09/21/20 08:35 Freq: NEEDED Status: Active Protocol: Document 09/21/20 10:34 DE (Rec: 09/21/20 11:18 DE [id number]) Subjective Physical Therapy Visit Type Type Initial Evaluation Visit Start Time 09:25 Visit Stop Time 10:01 Total Visit Minutes 36 Notes SPT Luke led the session under direct supervision of PT Janelle throughout the entire session. Number of MATH INSTRUCTOR Visits 0 Physical Therapy Visit Comments Patient Comments Pt is agreeable to do PT. Patient Goals To return home. M4 PT-IP Mobility and Gait Start: 09/21/20 08:35 Freq: NEEDED Status: Active Protocol: Document 09/21/20 10:34 DE (Rec: 09/21/20 11:18 DE [id number]) PT-Bed Mobility Assessment Supine to Sit Supine to Sit Contact Guard Assistance Sit to Supine Sit to Supine Contact Guard Assistance Scooting Scooting to Edge of Bed Contact Guard Assistance PT-Transfer Assessment Sit to and From Stand Sit to and from Stand Contact Guard Assistance Equipment Transfer Assistive Device Gait Belt,Front Wheeled Walker Orthotic/Prosthetic Devices or Brace: No Transfers Transfer Destination Bed,Bedside Commode Transfer Technique Stand Step Pivot Transfer Ability Level of Assist Contact Guard Assistance Comments Mobility Comments Pt was lying supine in bed with elevated HOB at ~15 deg as PT and SPT arrived. Pt requested to use the bathroom. Pt completed supine to sit at R EOB from elevated HOB with CGA and use of BUE. Pt was able to scoot herself to EOB but was slow. Pt performed sit to stand and stand step pivot to BSC that was angled at 90 deg on the R side with FWW CGA . Pt was able to void and perform pericare IND on BSC. Pt then stood up and performed stand step pivot back to the bed with FWW CGA. Pt returned to supine in bed. Pt's daughter came in towards the end of the session. Call light placed within reach. Pt's daughter remained in the room. Gait Assessment Comments Gait Comments Not assessed. Stair Climbing Assessment Comments Stair Climbing Comments Not assessed. PT-Balance Assessment Sitting Balance and Reactions Static Sitting Balance Ability Normal Dynamic Sitting Balance Ability Good Standing Balance and Reactions Static Standing Balance Ability Good Dynamic Standing Balance Ability Fair M5 PT-IP Objective Assessments Start: 09/21/20 08:35 Freq: NEEDED Status: Active Protocol: Document 09/21/20 10:34 DE (Rec: 09/21/20 11:18 DE [email or web address]) Orientation Orientation/Cognition Level of Alertness Alert Orientation Name,Age,Birthday,Month,Date, Year,Day of Week,Place, Situation Language Function Ability No Deficits Noted Safety Awareness Understands Safety Issues Memory Description No Deficits Noted Gross Range of Motion Upper Extremity ROM Assessment Left Impaired Impairments Shoulder AROM are limited to 90 deg of flexion and 45 deg of abduction d/t proximal humerus fracture that was sustained during the fall in July 2020. Lower Extremity ROM Assessment Right Impaired Strength Lower Extremity Strength Assessment Right Impaired Coordination Assessment Gross Coordination Gross Coordination WNL Sensation Assessment Sensation Gross Sensation WNL Light Touch Intact Muscle Tone Muscle Tone WNL Yes M6 PT-IP Treatment Start: 09/21/20 08:35 Freq: NEEDED Status: Active Protocol: Document 09/21/20 10:34 DE (Rec: 09/21/20 11:18 DE [id number]) Physical Therapy Treatment Education Education Provided Safety Other Treatments Other Treatment Performed Pt education was provided on safety and role of PT. M7 PT-IP Assessment and Plan Start: 09/21/20 08:35 Freq: NEEDED Status: Active Protocol: Document 09/21/20 10:34 DE (Rec: 09/21/20 11:18 DE [id number]) PT Summary Assessment and Plan Potential Rehabilitation Potential Good Status of Condition at Evaluation Evolving Summary Impairments Pain,ROM,Strength,Balance,Bed Mobility,Transfers,Gait, Activity Tolerance Assessment Summary Peace is an 85 yo female s/p I &D of R hip d/t deep surgical site incision infection following R hip hemiarthroplasty in July 2020. Pt also has hx of non- Hodgkin's lymphoma and type-2 diabetes mellitus. At baseline , pt was modified IND with a pick-up walker for mobility and amb. Pt was IND for most ADLs and IADLs including driving except for cleaning and grocery shopping. On evaluation, pt requires CGA for supine to sit, sit to stand, and stand step pivot with use of FWW. Pt lives in [facility] alone with 0 OSITO. Pt is not safe for d/c at this point. Pt will need to perform amb before d/c. PT anticipates pt will d/c home with FWW once medically cleared. Pt is high fall risk therefore PT recommends HH to improve strength, ROM, balance , and activity tolerance. Goals Bed Mobility Goal Standby Assistance Transfer Goal Standby Assistance,Front Wheeled Walker Gait Goal Standby Assistance,Front Wheel Walker Gait Distance 100 Days to Meet Goals 5 Frequency of Treatment Frequency Of Treatment Twice a Day Treatment Plan Physical Therapy Treatment Plan Bed Mobility Training,Transfer Training,Gait Training, Therapeutic Exercise,Balance Retraining,Post Op Education, Discharge Planning,Hot or Cold Pack Other Recommendations and Next Treatment Amb Focus Recommendations To Nursing Amount of Assist Needed 1 Person Assist Discharge Recommendations PT Discharge Recommendations Home with Assistance,Home Health Equipment Needed for Home Before FWW Discharge Transportation Needs at Discharge Private Vehicle Treatment was provided by Luke Barker, DAVID and supervised by Janelle Hensley, PT. I personally reviewed this note and agree with its contents.
--- NOTE | 2020-09-21 11:18 | PC.NURSE ---
Day shift: PICC line placed by TUSHAR Longoria at approx 0945 today.
--- NOTE | 2020-09-21 11:28 | PM.PN.1 ---
Subjective Subjective Date Patient Seen: 09/21/20 Time Patient Seen: 11:34 Interval history: The patient is an 85-year-old female with a history of hypertension, type 2 diabetes, GERD, osteoporosis, who is admitted with a right hip infection now status post operative drainage with Orthopedic surgery on September 20, yesterday. The patient is doing well today, cultures have grown Staph aureus, and the patient remains on vancomycin empirically. Plan for discharge with at least 2 weeks of antibiotics depending on culture results, hopefully tomorrow. Patient currently feels well without any chest pain, shortness of breath. She did have some nausea and dizziness after taking some pain pills last night but feels better this morning. PICC line was placed today. Exam Vital Signs (past 8 hours): - 09/21/20 07:48 09/21/20 09:38 Temperature 97.5 F L Pulse Rate 84 90 Respiratory Rate 16 18 Blood Pressure 135/65 Pulse Oximetry 99 98 Oxygen Delivery Method Room Air Oxygen Flow Rate 0 Narrative Exam Narrative: GENERAL APPEARANCE: Well developed, well nourished, in no acute distress. SKIN: Inspection of the skin reveals no rashes, ulcerations or petechiae. HEENT: Normocephalic atraumatic, extraocular muscles are intact, oropharynx is clear and mucous membranes are moist, neck is supple without adenopathy NECK: Supple and symmetric. There was no thyroid enlargement, and no tenderness, or masses were felt. CHEST: Normal AP diameter and normal contour without any kyphoscoliosis. LUNGS: Auscultation of the lungs revealed no wheezes, rhonchi, or rales. CARDIOVASCULAR: Tachycardic rate with regular rhythm without any murmurs, gallops, rubs. Peripheral pulses were 2+ and symmetric. ABDOMEN: Soft and nontender with normal bowel sounds. No ascites was noted. MUSCULOSKELETAL: There was no tenderness or effusions noted. PICC line in place RUE without erythema or induration. surgical dressing R hip c/d/i. EXTREMITIES: No cyanosis, clubbing. Minimal non-pitting edema bilateral lower extremitites NEUROLOGIC: Alert Normal affect. Strength is +5/5 in the Upper Extremities and Lower Extremities Bilaterally. Sensation to touch was normal. Objective Labs Result Diagrams: 09/21/20 05:37 09/21/20 05:37 Labs: Laboratory Results - last 24 hr 09/20/20 09/20/20 09/21/20 08:40 08:40 05:37 WBC 4.0 L RBC 3.19 L Hgb 10.0 L Hct 29.6 L MCV 92.8 MCH 31.2 MCHC 33.7 RDW 14.0 Plt Count 190 Neut % (Auto) 47.6 L Lymph % (Auto) 40.5 H [place] % (Auto) 11.7 Eos % (Auto) 0.1 L Baso % (Auto) 0.1 Neut # (Auto) 1900 Lymph # (Auto) 1600 [place] # (Auto) 500 Eos # (Auto) 0 Baso # (Auto) 0 Sodium 134 L Potassium 4.5 Chloride 107 Carbon Dioxide 24 BUN 13 Creatinine 0.73 Estimated GFR > 60.0 BUN/Creatinine Ratio 17.8 Glucose 265 H Hemoglobin A1c 6.5 H Calcium 8.5 Phosphorus 3.5 C-Reactive Protein Albumin 3.0 L 09/21/20 09/21/20 05:37 05:37 WBC RBC Hgb Hct MCV MCH MCHC RDW Plt Count Neut % (Auto) Lymph % (Auto) [place] % (Auto) Eos % (Auto) Baso % (Auto) Neut # (Auto) Lymph # (Auto) [place] # (Auto) Eos # (Auto) Baso # (Auto) Sodium 134 L Potassium 4.3 Chloride 107 Carbon Dioxide 27 BUN 13 Creatinine 0.70 Estimated GFR > 60.0 BUN/Creatinine Ratio 18.6 Glucose 125 H D Hemoglobin A1c Calcium 8.0 L Phosphorus C-Reactive Protein 4.2 H Albumin Assessment & Plan Assessment & Plan narrative: 1. 85-year-old female admitted to the hospital for a postoperative right hip infection, now s/p I&D with orthopedic surgery. 1. R hip postoperative wound infection and abscess (SSI), acute, present on admission. -patient is status post right hip arthroplasty in [place], now s/p I&D with orthopedic surgery here on 09/20/20. Doing well postoperatively. -Wound cultures growing staph aureus, continue vancomycin currently pending cultures. 2 weeks of IV therapy recommended. -PICC line placed today. -outpatient f/u with orthopedic surgery. 2. Type 2 diabetes, chronic. -hold oral medications in the hospital -will continue basal bolus insulin and adjust as necessary. Glucose 125 this AM on morning labs indicating adequate control. 3. GERD -will continue proton pump inhibitor 4. Hypertension, chronic, present on admission, -continue losartan and Cardizem 5. Depression and anxiety, chronic, stable. -continue Apresoline and Lexapro Code: DNR, patient's surrogate caregiver is her daughter who was at the bedside Dispo: anticipate discharge once cultures have finalized, expected tomorrow. Quality VTE Deep Vein Thrombosis/Pulmonary Embolism Present on Admission: No
--- NOTE | 2020-09-21 16:00 | PT.IPTN ---
Current Diagnoses Type 2 diabetes mellitus without complications (09/20/20) Infection following a procedure, deep incisional surgical site, initial encounter (09/20/20) Presence of unspecified artificial hip joint (09/20/20) Surgery Performed Operation Date: 09/20/20 15:00 Actual Procedures p Incision and Drainage Wound/Extremity Right Hip(Right) - Mariana Rendon MD Physical Therapy Treatment Note M2 PT-IP Current Condition Start: 09/21/20 08:35 Freq: NEEDED Status: Active Protocol: Document 09/21/20 10:34 DE (Rec: 09/21/20 11:18 DE [id number]) Physical Therapy Current Condition Current Condition Evaluation Date 09/21/20 Treatment Diagnosis I&D R hip; Difficulty with walking Onset Date 09/20/20 Weight Bearing Status Weight Bearing Status Weight Bear as Tolerated M3 PT-IP Subjective Start: 09/21/20 08:35 Freq: NEEDED Status: Active Protocol: Document 09/21/20 15:49 DE (Rec: 09/21/20 16:06 DE [email or web address]) Subjective Physical Therapy Visit Type Type Treatment Note Visit Start Time 14:35 Visit Stop Time 14:55 Total Visit Minutes 20 Notes SPT Luke led the session under direct supervision of PT Janelle throughout the entire session. Number of LOW ALTITUDE AIR DEFENSE GUNNER Visits 0 Physical Therapy Visit Comments Patient Comments Pt is agreeable to do PT. Patient Goals To return home. M4 PT-IP Mobility and Gait Start: 09/21/20 08:35 Freq: NEEDED Status: Active Protocol: Document 09/21/20 15:49 DE (Rec: 09/21/20 16:06 DE [email or web address]) PT-Bed Mobility Assessment Supine to Sit Supine to Sit Contact Guard Assistance Sit to Supine Sit to Supine Contact Guard Assistance,Head of Bed Elevated,Bedrails Scooting Scooting to Edge of Bed Contact Guard Assistance PT-Transfer Assessment Sit to and From Stand Sit to and from Stand Contact Guard Assistance Equipment Transfer Assistive Device Gait Belt,Front Wheeled Walker Orthotic/Prosthetic Devices or Brace: No Transfers Transfer Destination Bed,Bedside Commode Transfer Technique Stand Step Pivot Transfer Ability Level of Assist Contact Guard Assistance Comments Mobility Comments Pt was lying supine in bed with elevated HOB at ~15 deg as PT and SPT arrived. Pt requested to use the bathroom. Pt completed supine to sit at R EOB with CGA, elevated HOB, and R bedrail. Pt performed sit to stand and stand-step pivot to BSC that was angled at 90 deg on the R side with FWW CGA. Pt was able to void and perform pericare IND on BSC. Pt then stood up and amb ~5 ft to the sink with FWW CGA . After washing hands, pt amb ~20 ft total to the window, to the door, and to the chair with FWW CGA. Pt sat down on the chair. Call light placed within reach. Gait Assessment Gait Gait Assistance Required: Contact Guard Assist Distance (Feet) 25 Able to Maintain Weight Bearing Status Yes During Gait Assistive Devices Assistive Device Gait Belt,Front Wheeled Walker Orthotic/Prosthetic Devices or Brace: No Gait Deviations General Gait Pattern Antalgic,Decreased Stride Length,Decreased Feet Clearance,Flexed Trunk Factors Limiting Gait Function Factors Limiting Gait Function Decreased Activity Tolerance, Decreased Strength,Limited Range of Motion,Pain,Poor Balance Comments Gait Comments See mobility comments. Stair Climbing Assessment Comments Stair Climbing Comments Not assessed. PT-Balance Assessment Sitting Balance and Reactions Static Sitting Balance Ability Normal Dynamic Sitting Balance Ability Good Standing Balance and Reactions Static Standing Balance Ability Good Dynamic Standing Balance Ability Fair M5 PT-IP Objective Assessments Start: 09/21/20 08:35 Freq: NEEDED Status: Active Protocol: Document 09/21/20 10:34 DE (Rec: 09/21/20 11:18 DE [id number]) Orientation Orientation/Cognition Level of Alertness Alert Orientation Name,Age,Birthday,Month,Date, Year,Day of Week,Place, Situation Language Function Ability No Deficits Noted Safety Awareness Understands Safety Issues Memory Description No Deficits Noted Gross Range of Motion Upper Extremity ROM Assessment Left Impaired Impairments Shoulder AROM are limited to 90 deg of flexion and 45 deg of abduction d/t proximal humerus fracture that was sustained during the fall in July 2020. Lower Extremity ROM Assessment Right Impaired Strength Lower Extremity Strength Assessment Right Impaired Coordination Assessment Gross Coordination Gross Coordination WNL Sensation Assessment Sensation Gross Sensation WNL Light Touch Intact Muscle Tone Muscle Tone WNL Yes M6 PT-IP Treatment Start: 09/21/20 08:35 Freq: NEEDED Status: Active Protocol: Document 09/21/20 15:49 DE (Rec: 09/21/20 16:06 DE [id number]) Physical Therapy Treatment Education Education Provided Safety Other Treatments Other Treatment Performed Pt education was provided on safety and role of PT. M7 PT-IP Assessment and Plan Start: 09/21/20 08:35 Freq: NEEDED Status: Active Protocol: Document 09/21/20 15:49 DE (Rec: 09/21/20 16:06 DE [email or web address]) PT Summary Assessment and Plan Potential Rehabilitation Potential Good Status of Condition at Evaluation Evolving Summary Impairments Pain,ROM,Strength,Balance,Bed Mobility,Transfers,Gait, Activity Tolerance Assessment Summary Pt demonstrated improved activity tolerance. Pt performed stand step pivot to BSC and amb ~25 ft with FWW CGA. Pt did not want to amb in the hallway d/t fatigue. Pt will need to improve activity tolerance and amb distance before d/c. Goals Bed Mobility Goal Standby Assistance Transfer Goal Standby Assistance,Front Wheeled Walker Gait Goal Standby Assistance,Front Wheel Walker Gait Distance 100 Days to Meet Goals 5 Frequency of Treatment Frequency Of Treatment Twice a Day Treatment Plan Physical Therapy Treatment Plan Bed Mobility Training,Transfer Training,Gait Training, Therapeutic Exercise,Balance Retraining,Post Op Education, Discharge Planning,Hot or Cold Pack Other Recommendations and Next Treatment Amb distance Focus Recommendations To Nursing Amount of Assist Needed 1 Person Assist Discharge Recommendations PT Discharge Recommendations Home with Assistance,Home Health Equipment Needed for Home Before FWW Discharge Transportation Needs at Discharge Private Vehicle Treatment was provided by Luke Barker, DAVID and supervised by Janelle Hensley, PT. I personally reviewed this note and agree with its contents.
[2020-09-21] MEDS: VANCOMYCIN 750 MG/150 ML FROZ.PIGGY 150 MG IV (19:17)
[2020-09-22] VITALS (7 sets, daily range): BP systolic 116–133; BP diastolic 55–80; PULSE 91–149; RESP 13–16; TEMP 36.2–37; O2SAT 96–100
--- NOTE | 2020-09-22 00:31 | PC.NURSE ---
Patient seen at 2339 and assessed. Is alert and oriented but can be irritable and demanding. Breath sounds CTA with RA sat of 98%. HRR. Denies nausea. BT present and is passing flatus. Denies dysuria, frequency or urgency with urination; gets up to BSC with walker and 1 assist. Aquacel dressing to right hip is intact with shadow drainage; hemovac is intact and compressed. Denies pain but accepting of ice pack for comfort. CMS intact although unable to lift leg very far off bed. Wearing bilateral calf SCD's. On contact isolation due to staph aureus in wound cx; awaiting sensitivities. Fall risk score is high and bed alarm is activated.
[2020-09-22 05:47] LABS: Add Manual Diff / Slide Review NO; Basophils Absolute Auto 0 /uL (0-100); Basophils Percent Auto 0.1 % (0-2); Eosinophils Absolute Auto 0 /uL (0-450); Eosinophils Percent Auto 0.1 % (2-4); Hematocrit 27.8 % (36-46); Hemoglobin 9.3 g/dL (12.0-16.0); Lymphocytes Absolute Auto 1500 /uL (1100-4500); Lymphocytes Percent Auto 47.7 % (25-40); Mean Corpuscular HGB Conc 33.4 % (30-36); Mean Corpuscular Volume 92.9 fL (80-100); Monocytes Absolute Auto 400 /uL (0-900); Monocytes Percent Auto 13.9 % (3-14); Neutrophils Absolute Auto 1200 /uL (1500-7000); Neutrophils Percent Auto 38.2 % (50-75); Platelet Count 186 X10^3/uL (150-400); Red Blood Cell Count 2.99 X10^6/uL (4.0-5.2); Red Cell Distribution Width 14.3 % (11.6-14.8); White Blood Cell Count 3.1 X10^3/uL (4.5-11.0)
[2020-09-22 05:56] LABS: BUN Creatinine Ratio 21.5 (6-22); Blood Urea Nitrogen 14 mg/dL (7-17); Calcium 8.1 mg/dL (8.4-10.2); Carbon Dioxide 27 mmol/L (22-32); Chloride 105 mmol/L (98-107); Estimated Glomerular Filt Rate > 60.0 mL/min (>60); Glucose 157 mg/dL (80-110); HEMOLYSIS < 15 (0-50); Magnesium 1.3 mg/dL (1.6-2.3); Potassium 4.3 mmol/L (3.4-5.1); Sodium 134 mmol/L (137-145)
[2020-09-22 06:16] LABS: Vancomycin Trough 9.2 ug/mL (10-20)
[2020-09-22] MEDS: VANCOMYCIN 750 MG/150 ML FROZ.PIGGY 150 MG IV (06:24)
[2020-09-22] MEDS: PANTOPRAZOLE 40 MG TABLET PO (06:25)
[2020-09-22] MEDS: SODIUM CHLORIDE 0.9% FLUSH 10 ML IV ×2 (06:25→21:11)
--- NOTE | 2020-09-22 07:31 | PM.PNPO.1 ---
Subjective Subjective Date Patient Seen: 09/22/20 Time Patient Seen: 07:32 Interval history: POD #2 s/p post I and D surgical site infection right hip with Dr. Rendon. 85-year-old female status post hip replacement for hip fracture. Surgery done in [place] in July of 2020 One week of increased swelling and pain at distal incision. She is more sore this AM. Yesterday she reports she ambulated in her room but was too tired to mobilize in the hallway. Hemovac output last shift was 20 cc.It was not DCd yesterday. Exam Vital Signs (past 8 hours): - 09/22/20 04:20 Temperature 97.2 F L Pulse Rate 91 H Respiratory Rate 14 Blood Pressure 133/72 Pulse Oximetry 100 Oxygen Delivery Method Room Air Oxygen Flow Rate 0 Narrative Exam Narrative: Patient lying in bed in NAD. She is able to actively dorsiflex and plantarflex. SCDs on and functioning. DP 2+ and symmetrical. Dressing on right his is CDI. Drain in place. Objective Labs Result Diagrams: 09/22/20 05:30 09/22/20 05:30 Labs: Laboratory Results - last 24 hr 09/22/20 09/22/20 09/22/20 05:30 05:30 05:30 WBC 3.1 L RBC 2.99 L Hgb 9.3 L Hct 27.8 L MCV 92.9 MCH 31.0 MCHC 33.4 RDW 14.3 Plt Count 186 Neut % (Auto) 38.2 L Lymph % (Auto) 47.7 H [place] % (Auto) 13.9 Eos % (Auto) 0.1 L Baso % (Auto) 0.1 Neut # (Auto) 1200 L Lymph # (Auto) 1500 [place] # (Auto) 400 Eos # (Auto) 0 Baso # (Auto) 0 Sodium 134 L Potassium 4.3 Chloride 105 Carbon Dioxide 27 BUN 14 Creatinine 0.65 Estimated GFR > 60.0 BUN/Creatinine Ratio 21.5 Glucose 157 H Calcium 8.1 L Magnesium 1.3 L Vancomycin Trough 9.2 L Assessment & Plan Post-op Postoperative Procedures: Procedures Operation Date: 09/20/20 15:00 Actual Procedures Side Surgeon p Incision and Drainage Wound/Extremity Right Hip Right Mariana Rendon MD DC hemovac today. Patient can continue to mobilize with PT. Wound cultures growing staph aureus, continue vancomycin currently pending cultures. Will be on empiric vancomycin. Recommend 2 weeks IV antibiotics for deep infection. Patient also had non operative left shoulder fracture. This is as tolerated. Follow-up in 2 weeks in orthopedic clinic for suture removal and wound check. Quality VTE Deep Vein Thrombosis/Pulmonary Embolism Present on Admission: No
--- NOTE | 2020-09-22 07:45 | PC.NURSE ---
Day shift: JOSEFINA Solorzano informed about Pt's MRSA in wound culture at this time.
[2020-09-22] MEDS: MAGNESIUM SULFATE 2 GM/50 ML PIGGYBACK IV (07:59)
--- NOTE | 2020-09-22 09:01 | CM.DPC ---
DCP Cont: Spoke to Dr. Levy regarding patient. Stated, patient may be better going to skilled facility due to working on therapeutic level of Vancomycin, and may need more labs to be done. Went ahead and called daughter, Genesis. She stated, I'd really rather her not go, but if that's what she needs, than I'm fine with that. Went ahead and called Romana at [facility]. She is working on the [employer] authorization, and stated that she will try to expidite it for today. P: DCP to continue to follow. Patient could possibly go today if insurance authorization is obtained. Katelin Conklin RN/Hall Manager
[2020-09-22] MEDS: ESCITALOPRAM 10 MG TABLET PO (09:14)
[2020-09-22] MEDS: INSULIN ASPART 100 UNIT/ML INSULN PEN SUBCUT ×4 (09:14→21:12)
[2020-09-22] MEDS: dilTIAZem CD 240 MG CAP PO (09:14)
[2020-09-22] MEDS: GABAPENTIN 100 MG CAPSULE PO (09:17)
[2020-09-22] MEDS: LOSARTAN 50 MG TABLET PO (09:17)
[2020-09-22] MEDS: HEPARIN 5,000 UNIT/ML VIAL 5000 UNIT SUBCUT ×2 (09:17→21:08)
[2020-09-22] MEDS: DOCUSATE 100 MG CAPSULE PO ×2 (09:17→21:09)
[2020-09-22] MEDS: ACETAMINOPHEN 325 MG TABLET 975 MG PO ×3 (09:18→21:07)
--- NOTE | 2020-09-22 11:31 | PT.IPTN ---
Current Diagnoses Type 2 diabetes mellitus without complications (09/20/20) Infection following a procedure, deep incisional surgical site, initial encounter (09/20/20) Presence of unspecified artificial hip joint (09/20/20) Surgery Performed Operation Date: 09/20/20 15:00 Actual Procedures p Incision and Drainage Wound/Extremity Right Hip(Right) - Mariana Rendon MD Physical Therapy Treatment Note M2 PT-IP Current Condition Start: 09/21/20 08:35 Freq: NEEDED Status: Active Protocol: Document 09/21/20 10:34 DE (Rec: 09/21/20 11:18 DE [id number]) Physical Therapy Current Condition Current Condition Evaluation Date 09/21/20 Treatment Diagnosis I&D R hip; Difficulty with walking Onset Date 09/20/20 Weight Bearing Status Weight Bearing Status Weight Bear as Tolerated M3 PT-IP Subjective Start: 09/21/20 08:35 Freq: NEEDED Status: Active Protocol: Document 09/22/20 11:30 AW (Rec: 09/22/20 12:27 AW [id number]) Subjective Physical Therapy Visit Type Type Treatment Note Visit Start Time 11:12 Visit Stop Time 11:29 Total Visit Minutes 17 Number of [employer] Visits 0 Physical Therapy Visit Comments Patient Comments Pt requires some encouragement but is ultimately willing to work with PT. Patient Goals To return home. M4 PT-IP Mobility and Gait Start: 09/21/20 08:35 Freq: NEEDED Status: Active Protocol: Document 09/22/20 11:30 AW (Rec: 09/22/20 12:27 AW [id number]) PT-Bed Mobility Assessment Supine to Sit Supine to Sit Standby Assistance Scooting Scooting to Edge of Bed Standby Assistance PT-Transfer Assessment Sit to and From Stand Sit to and from Stand Contact Guard Assistance Equipment Transfer Assistive Device Gait Belt,Front Wheeled Walker Orthotic/Prosthetic Devices or Brace: No Transfers Transfer Destination Chair Transfer Technique pt ambulated with FWW Transfer Ability Level of Assist Standby Assistance Comments Mobility Comments Pt was sitting up in bed coloring as PT arrived. With HOB at 30 degrees, pt completed supine to sit and scooted toward EOB SBA. She needed CGA to stand from the bed in lowest position and agreed to ambulate around the room. She ambulated with FWW and improved RLE weightbearing CGA for a total of 50 feet. She then stood near the window and performed single leg stance on her LLE with one hand on FWW for support. She also completed marching in place with high knees x 10 before needing to sit down due to fatigue. Shoulder pain and fatigue was most limiting. Pt transferred to the chair SBA and was positioned there with call light and all needs within reach. Pt agreed to stay up on the chair at least through lunch time. Gait Assessment Gait Gait Assistance Required: Contact Guard Assist Distance (Feet) 50 Able to Maintain Weight Bearing Status Yes During Gait Assistive Devices Assistive Device Gait Belt,Front Wheeled Walker Orthotic/Prosthetic Devices or Brace: No Gait Deviations General Gait Pattern Antalgic,Decreased Stride Length,Decreased Feet Clearance,Flexed Trunk,Step-to Gait Factors Limiting Gait Function Factors Limiting Gait Function Decreased Activity Tolerance, Decreased Strength,Limited Range of Motion,Pain,Poor Balance Comments Gait Comments See mobility comments. Stair Climbing Assessment Comments Stair Climbing Comments Not assessed. No stairs at [address]. PT-Balance Assessment Sitting Balance and Reactions Static Sitting Balance Ability Good Dynamic Sitting Balance Ability Good Standing Balance and Reactions Static Standing Balance Ability Good Dynamic Standing Balance Ability Fair Device Used FWW M5 PT-IP Objective Assessments Start: 09/21/20 08:35 Freq: NEEDED Status: Active Protocol: Document 09/21/20 10:34 DE (Rec: 09/21/20 11:18 DE [id number]) Orientation Orientation/Cognition Level of Alertness Alert Orientation Name,Age,Birthday,Month,Date, Year,Day of Week,Place, Situation Language Function Ability No Deficits Noted Safety Awareness Understands Safety Issues Memory Description No Deficits Noted Gross Range of Motion Upper Extremity ROM Assessment Left Impaired Impairments Shoulder AROM are limited to 90 deg of flexion and 45 deg of abduction d/t proximal humerus fracture that was sustained during the fall in July 2020. Lower Extremity ROM Assessment Right Impaired Strength Lower Extremity Strength Assessment Right Impaired Coordination Assessment Gross Coordination Gross Coordination WNL Sensation Assessment Sensation Gross Sensation WNL Light Touch Intact Muscle Tone Muscle Tone WNL Yes M6 PT-IP Treatment Start: 09/21/20 08:35 Freq: NEEDED Status: Active Protocol: Document 09/22/20 11:30 AW (Rec: 09/22/20 12:27 AW [id number]) Physical Therapy Treatment Education Education Provided Safety Other Treatments Other Treatment Performed Pt completed single leg stance 5 sec x 5 reps on LLE and marching with high knees x 10. M7 PT-IP Assessment and Plan Start: 09/21/20 08:35 Freq: NEEDED Status: Active Protocol: Document 09/22/20 11:30 AW (Rec: 09/22/20 12:27 AW [id number]) PT Summary Assessment and Plan Potential Rehabilitation Potential Good Status of Condition at Evaluation Stable Summary Impairments Pain,ROM,Strength,Balance,Bed Mobility,Transfers,Gait, Activity Tolerance Progress Towards Goals Progressing Toward Goals,Slow Progress due to Activity Tolerance Assessment Summary Pt improved in activity tolerance but remains limited partially due to left shoulder pain and fatigue. Humerus fracture is healed and pt is cleared for WB LUE. Though gait distances have been short , pt is mobilizing safely with FWW and PT anticipates safe discharge back to [facility] with home health therapy . Goals Bed Mobility Goal Standby Assistance Transfer Goal Standby Assistance,Front Wheeled Walker Gait Goal Standby Assistance,Front Wheel Walker Gait Distance 100 Days to Meet Goals 5 Frequency of Treatment Frequency Of Treatment Twice a Day Treatment Plan Physical Therapy Treatment Plan Bed Mobility Training,Transfer Training,Gait Training, Therapeutic Exercise,Balance Retraining,Post Op Education, Discharge Planning,Hot or Cold Pack Other Recommendations and Next Treatment Amb distance; ther ex as Focus tolerated Recommendations To Nursing Amount of Assist Needed 1 Person Assist Discharge Recommendations PT Discharge Recommendations Home with Assistance,Home Health Equipment Needed for Home Before FWW if pt prefers vs standard Discharge walker which she has at home Transportation Needs at Discharge Private Vehicle
--- NOTE | 2020-09-22 12:50 | CM.DPC ---
Addendum entered by Katelin Conklin R.N. 09/22/20 14:51: Have not yet heard back from Romana at [facility], left her a message. Patient will not be discharging today secondary to her heart rate, as she is currently on tele. In the message, asked Romana to call back when she gets insurance authorization, and wanted to confirm that it is good for 24 hours. If authorization is approved, and she is medically stable tomorrow, she should be able to be discharged to [facility]. Addendum entered by Katelin Conklin R.N. 09/22/20 13:02: Updated Dr. Levy, hospitalist, that probablity is high that her insurance will authorize patient and [facility] accepting. Dr. Levy just indicated that patient's heart rate has increased, and will need to follow up, perhaps with echo as well. Romana will call back as soon as she is sure that [employer] will authorize. If patient's can't go today, [facility] will also accept tomorrow as well, she had nursing come in and stay later to do the admit if discharge was today. Original Note: DCP Cont: Spoke to Cira at [facility], she called with some questions regarding skilled need. Let her know that patient is on Vancomycin twice a day, and hospitalist is continuing to work on therapeutic results. Let Cira know that patient just moved into a [facility] facility which is independent, and that patient also has MRSA to her wound, and would be difficult to manage in a [facility] home setting. Cira indicated, it most likely will get authorized, will run it by the team and will let Romana at [facility] know. P: DCP to continue to follow. Patient can possibly be approved today for intermediate. Katelin Conklin RN/Securities And Real [employer] Director
--- NOTE | 2020-09-22 13:06 | PC.NURSE ---
Day shift: Dr Levy told about Pt's HR in the 130's and 140's. Orderd EKG, tele monitoring, and IV metorporol. Metoprolol given. Call light in reach. Will continue to monitor. Pt on tele at this time.
[2020-09-22] MEDS: METOPROLOL TARTRATE 5 MG/5 ML INJ IV (13:15)
[2020-09-22 14:27] LABS: BUN Creatinine Ratio 21.9 (6-22); Blood Urea Nitrogen 16 mg/dL (7-17); Calcium 8.3 mg/dL (8.4-10.2); Carbon Dioxide 25 mmol/L (22-32); Chloride 107 mmol/L (98-107); Estimated Glomerular Filt Rate > 60.0 mL/min (>60); Glucose 147 mg/dL (80-110); HEMOLYSIS 23 (0-50); Magnesium 1.9 mg/dL (1.6-2.3); Potassium 4.3 mmol/L (3.4-5.1); Sodium 134 mmol/L (137-145)
[2020-09-22 14:38] LABS: Troponin I < 0.012 ng/mL (0.01-0.034)
[2020-09-22] MEDS: METOPROLOL ER 25 MG TABLET 12.5 MG PO ×2 (15:22→21:09)
--- NOTE | 2020-09-22 15:25 | P.PN_ITS ---
Subjective Subjective Date Patient Seen: 09/22/20 Time Patient Seen: 15:25 Interval history: The patient is an 85-year-old female with a history of hypertension, type 2 diabetes, GERD, osteoporosis, who is admitted with a right hip infection now status post operative drainage with Orthopedic surgery on September 20. Wound cultures have grown MRSA, and the patient will require at least 2 weeks of IV antibiotics with vancomycin. She is not currently therapeutic on her vancomycin, with dosing increased today. She also had an episode of tachycardia today, EKG showed a supraventricular tachycardia with a rate of 143. She was given 5 mg of IV metoprolol with improvement and then 12.5 mg of oral metoprolol succinate and now her rate is in the 80s. Troponin was checked and was unremarkable, patient was asymptomatic. Patient Will need further monitoring on her new medication to make sure she is not return into her supraventricular rhythm. Patient was hypomagnesemic this morning but was repleted and repeat was 1.9. Exam Vital Signs (past 8 hours): Oxygen Delivery Method Room Air Oxygen Flow Rate 0 Narrative Exam Narrative: GENERAL APPEARANCE: Well developed, well nourished, in no acute distress. SKIN: Inspection of the skin reveals no rashes, ulcerations or petechiae. HEENT: Normocephalic atraumatic, extraocular muscles are intact, oropharynx is clear and mucous membranes are moist, neck is supple without adenopathy NECK: Supple and symmetric. There was no thyroid enlargement, and no tenderness, or masses were felt. CHEST: Normal AP diameter and normal contour without any kyphoscoliosis. LUNGS: Auscultation of the lungs revealed no wheezes, rhonchi, or rales. CARDIOVASCULAR: Tachycardic rate with regular rhythm without any murmurs, gallops, rubs. Peripheral pulses were 2+ and symmetric. ABDOMEN: Soft and nontender with normal bowel sounds. No ascites was noted. MUSCULOSKELETAL: There was no tenderness or effusions noted. PICC line in place RUE without erythema or induration. surgical dressing R hip c/d/i. EXTREMITIES: No cyanosis, clubbing. Minimal non-pitting edema bilateral lower extremitites NEUROLOGIC: Alert Normal affect. Strength is +5/5 in the Upper Extremities and Lower Extremities Bilaterally. Sensation to touch was normal. Objective Labs Result Diagrams: 09/22/20 05:30 09/22/20 13:55 Labs: Laboratory Results - last 24 hr 09/22/20 09/22/20 09/22/20 05:30 05:30 05:30 WBC 3.1 L RBC 2.99 L Hgb 9.3 L Hct 27.8 L MCV 92.9 MCH 31.0 MCHC 33.4 RDW 14.3 Plt Count 186 Neut % (Auto) 38.2 L Lymph % (Auto) 47.7 H [place] % (Auto) 13.9 Eos % (Auto) 0.1 L Baso % (Auto) 0.1 Neut # (Auto) 1200 L Lymph # (Auto) 1500 [place] # (Auto) 400 Eos # (Auto) 0 Baso # (Auto) 0 Sodium 134 L Potassium 4.3 Chloride 105 Carbon Dioxide 27 BUN 14 Creatinine 0.65 Estimated GFR > 60.0 BUN/Creatinine Ratio 21.5 Glucose 157 H Calcium 8.1 L Magnesium 1.3 L Troponin I Vancomycin Trough 9.2 L 09/22/20 13:55 WBC RBC Hgb Hct MCV MCH MCHC RDW Plt Count Neut % (Auto) Lymph % (Auto) [place] % (Auto) Eos % (Auto) Baso % (Auto) Neut # (Auto) Lymph # (Auto) [place] # (Auto) Eos # (Auto) Baso # (Auto) Sodium 134 L Potassium 4.3 Chloride 107 Carbon Dioxide 25 BUN 16 Creatinine 0.73 Estimated GFR > 60.0 BUN/Creatinine Ratio 21.9 Glucose 147 H Calcium 8.3 L Magnesium 1.9 Troponin I < 0.012 Vancomycin Trough Assessment & Plan Assessment & Plan narrative: 1. 85-year-old female admitted to the hospital for a postoperative right hip infection, now s/p I&D with orthopedic surgery. 1. R hip postoperative wound infection and abscess (SSI), acute, present on admission. -patient is status post right hip arthroplasty in [place], now s/p I&D with orthopedic surgery here on 09/20/20. Doing well postoperatively. -Wound cultures growing MRSA, continue vancomycin. 2 weeks of IV therapy recommended once therapeutic. Currently subtherapeutic with trough of 9 today, dosing increased per pharmacy today. -PICC line placed 09/21. -outpatient f/u with orthopedic surgery. 2. Type 2 diabetes, chronic. -hold oral medications in the hospital -will continue basal bolus insulin and adjust as necessary. 3. GERD -will continue proton pump inhibitor 4. Hypertension, chronic, present on admission, -continue losartan and Cardizem 5. Depression and anxiety, chronic, stable. -continue Apresoline and Lexapro 6. Supraventricular tachycardia, acute, not present on admission - repeat labs unremarkable including troponin. No evidence of ischemia noted on EKG. Patient asymptomatic during episode. - rate improved with 5 mg IV metoprolol. continue metoprolol 12.5 mg BID in addition to home cardizem. - telemetry monitoring overnight. 7. Acute on chronic anemia - likely in the setting of acute blood loss anemia from her surgery. Continue to monitor as Hg now 9.3. MCV normal at 92. Will check iron profile. Code: DNR, patient's surrogate caregiver is her daughter Dispo: anticipate discharge to SNF as soon as tomorrow given SVT today. Quality VTE Deep Vein Thrombosis/Pulmonary Embolism Present on Admission: No
--- NOTE | 2020-09-22 15:37 | CM.DPC ---
DCP Cont: Romana at [facility] called and stated that they did receive [employer] authorization, which is good for a week. Updated her that patient is not yet ready for discharge today, due to cardiac issues. Updated daughter, Genesis, who is on board with plan, as well as is patient. Patient could potentially go tomorrow. Will need to keep in touch with Romana tomorrow and give her updates. P: DCP to continue to follow. Patient should be able to go to [facility] tomorrow if medically stable, just need to update daughter. PASSR is already completed. Katelin Conklin RN/Mailing Manager
--- NOTE | 2020-09-22 16:57 | PT-IP ANOTE ---
Pt refused PT on first attempt to see her this PM. On second attempt, her heart rate was sustained in the 120's to 130's and had just been placed on telemetry. Will hold PT this PM and follow up morning of 09/23.
[2020-09-22] MEDS: SODIUM CHLORIDE 0.9% 250 ML 21 ML IV (17:35)
[2020-09-22] MEDS: VANCOMYCIN 1,000 MG/200 ML PIGGYBACK 200 MG IV (17:35)
[2020-09-23] VITALS (9 sets, daily range): BP systolic 119–145; BP diastolic 56–83; PULSE 69–127; RESP 16–18; TEMP 36.2–36.9; O2SAT 95–99
--- NOTE | 2020-09-23 02:39 | PC.NURSE ---
Patient seen and assessed at 2327. Is alert and oriented. Breath sounds CTA with RA sat of 96%. HRR but tachy at 117 bpm with subsequent telemetry reading of ST but per tele monitor heart rate is currently in the 80's. Denies nausea. BT present and is passing flatus; had BM yesterday. Does complain of some minor discomfort with urination but denies frequency or urgency. Is able to move herself in bed and gets up to bathroom with walker and SBA. Aquacel dressing to right hip with no new drainage; hemovac site dressing is CDI. CMS intact but still has difficulty lifting right leg off bed. Wearing bilateral calf SCD's. Remains on contact isolation for MRSA. Denied pain at assessment but now complains of headache but does not want to take any narcotics so [employer] contacted and order received for Ibuprofen. Fall risk score is high and bed alarm is activated.
[2020-09-23] MEDS: IBUPROFEN 400 MG TABLET PO (03:22)
[2020-09-23] MEDS: SODIUM CHLORIDE 0.9% 500 ML 1000 ML IV (05:54)
[2020-09-23 06:03] LABS: Add Manual Diff / Slide Review NO; Basophils Absolute Auto 0 /uL (0-100); Basophils Percent Auto 0.1 % (0-2); Eosinophils Absolute Auto 0 /uL (0-450); Eosinophils Percent Auto 0.2 % (2-4); Hematocrit 26.1 % (36-46); Hemoglobin 8.8 g/dL (12.0-16.0); Lymphocytes Absolute Auto 1600 /uL (1100-4500); Lymphocytes Percent Auto 56.4 % (25-40); Mean Corpuscular HGB Conc 33.6 % (30-36); Mean Corpuscular Hemoglobin 30.8 PG (26-34); Mean Corpuscular Volume 91.8 fL (80-100); Monocytes Absolute Auto 400 /uL (0-900); Monocytes Percent Auto 12.4 % (3-14); Neutrophils Absolute Auto 900 /uL (1500-7000); Neutrophils Percent Auto 30.9 % (50-75); Platelet Count 198 X10^3/uL (150-400); Red Blood Cell Count 2.84 X10^6/uL (4.0-5.2); Red Cell Distribution Width 13.7 % (11.6-14.8); White Blood Cell Count 2.9 X10^3/uL (4.5-11.0)
[2020-09-23 06:24] LABS: BUN Creatinine Ratio 23.2 (6-22); Blood Urea Nitrogen 13 mg/dL (7-17); Carbon Dioxide 28 mmol/L (22-32); Chloride 107 mmol/L (98-107); Estimated Glomerular Filt Rate > 60.0 mL/min (>60); Glucose 166 mg/dL (80-110); HEMOLYSIS < 15 (0-50); Iron 77 ug/dL (37-170); Magnesium 1.4 mg/dL (1.6-2.3); Potassium 4.2 mmol/L (3.4-5.1); Sodium 134 mmol/L (137-145)
[2020-09-23 06:35] LABS: Percent Iron Saturation 36 % (15-50); Total Iron Binding Capacity 212 ug/dL (265-497); Transferrin 146 mg/dL (206-381)
[2020-09-23] MEDS: PANTOPRAZOLE 40 MG TABLET PO (06:35)
[2020-09-23] MEDS: VANCOMYCIN 1,000 MG/200 ML PIGGYBACK 200 MG IV ×2 (06:47→18:29)
[2020-09-23] MEDS: HEPARIN 5,000 UNIT/ML VIAL 5000 UNIT SUBCUT (08:49)
[2020-09-23] MEDS: LOSARTAN 50 MG TABLET PO (08:50)
[2020-09-23] MEDS: GABAPENTIN 100 MG CAPSULE PO (08:50)
[2020-09-23] MEDS: MAGNESIUM SULFATE 2 GM/50 ML PIGGYBACK IV (08:50)
[2020-09-23] MEDS: METOPROLOL ER 25 MG TABLET PO ×2 (08:50→12:44)
[2020-09-23] MEDS: DOCUSATE 100 MG CAPSULE PO ×2 (08:50→20:09)
[2020-09-23] MEDS: dilTIAZem CD 240 MG CAP PO (08:52)
[2020-09-23] MEDS: ESCITALOPRAM 10 MG TABLET PO (08:52)
[2020-09-23] MEDS: INSULIN ASPART 100 UNIT/ML INSULN PEN SUBCUT ×2 (08:53→12:38)
[2020-09-23] MEDS: ACETAMINOPHEN 325 MG TABLET 975 MG PO ×3 (08:57→20:09)
--- NOTE | 2020-09-23 08:57 | PT-IP ANOTE ---
Pt remains tachycardic with rate in the 120's-130's. Will hold PT treatment this AM and check on pt later for appropriateness.
[2020-09-23] MEDS: SODIUM CHLORIDE 0.9% FLUSH 10 ML IV ×2 (08:59→20:09)
[2020-09-23] MEDS: SODIUM CHLORIDE 0.9% 1,000 ML 1000 ML IV ×2 (09:24→12:38)
--- NOTE | 2020-09-23 10:38 | CM.DPC ---
DCP SNF Planning Per MD, pt continues to have increased heart rate today but feels theres a chance that she could convert later this morning towards possible d/c to SNF either this afternoon or tomorrow. SW updated pt on insurance auth approval and [facility] acceptance and pt remains agreeable with plan of SNF at d/c. COVID 19 test its 72 hour status this morning at 0845 and SW updated RN that new COVID test needed for likely d/c later today or tomorrow but RN quite busy. SW called cat sitter and updated and Charge would like to wait on pt's heart rate prior to completing updated COVID test. SW called [facility] admissions and updated admissions Romana on above and she states she can wait until about noon or 1300 to determine if pt stable for d/c as transport is filling up for the afternoon already. Romana confirms they can accept later today if transport available and definitely can accept pt tomorrow is stable. Plan: SW to follow for pt's heart rate to stabilize towards d/c today or tomorrow to [facility]. SW to follow closely for RN to complete updated COVID 19 test prior to d/c. JAUN Whaley
--- NOTE | 2020-09-23 11:37 | PM.PNPO.1 ---
Subjective Subjective Date Patient Seen: 09/23/20 Time Patient Seen: 11:37 Interval history: Pain [id number]. Denies fever or chills. No nausea or vomiting. Exam Vital Signs (past 8 hours): - 09/23/20 05:47 09/23/20 08:00 Temperature 98.4 F 97.9 F Pulse Rate 127 H 119 H Respiratory Rate 16 18 Blood Pressure 143/76 H 129/73 Pulse Oximetry 95 98 Oxygen Delivery Method Room Air Oxygen Flow Rate 0 Narrative Exam Narrative: Patient lying in bed in NAD. She is able to actively dorsiflex and plantarflex. SCDs on and functioning. DP 2+ and symmetrical. Dressing on right his is CDI. Objective Labs Result Diagrams: 09/23/20 05:48 09/23/20 05:48 Labs: Laboratory Results - last 24 hr 09/22/20 09/23/20 09/23/20 13:55 05:48 05:48 WBC 2.9 L RBC 2.84 L Hgb 8.8 L Hct 26.1 L MCV 91.8 MCH 30.8 MCHC 33.6 RDW 13.7 Plt Count 198 Neut % (Auto) 30.9 L Lymph % (Auto) 56.4 H [place] % (Auto) 12.4 Eos % (Auto) 0.2 L Baso % (Auto) 0.1 Neut # (Auto) 900 L Lymph # (Auto) 1600 [place] # (Auto) 400 Eos # (Auto) 0 Baso # (Auto) 0 Sodium 134 L 134 L Potassium 4.3 4.2 Chloride 107 107 Carbon Dioxide 25 28 BUN 16 13 Creatinine 0.73 0.56 Estimated GFR > 60.0 > 60.0 BUN/Creatinine Ratio 21.9 23.2 H Glucose 147 H 166 H Calcium 8.3 L 8.0 L Magnesium 1.9 1.4 L Iron TIBC % Saturation Transferrin Troponin I < 0.012 09/23/20 05:48 WBC RBC Hgb Hct MCV MCH MCHC RDW Plt Count Neut % (Auto) Lymph % (Auto) [place] % (Auto) Eos % (Auto) Baso % (Auto) Neut # (Auto) Lymph # (Auto) [place] # (Auto) Eos # (Auto) Baso # (Auto) Sodium Potassium Chloride Carbon Dioxide BUN Creatinine Estimated GFR BUN/Creatinine Ratio Glucose Calcium Magnesium Iron 77 TIBC 212 L % Saturation 36 Transferrin 146 L Troponin I Assessment & Plan Post-op Postoperative Procedures: Procedures Operation Date: 09/20/20 15:00 Actual Procedures Side Surgeon p Incision and Drainage Wound/Extremity Right Hip Right Mariana Rendon MD postop day 3 status post irrigation debridement right hip surgical site infection status post hemiarthroplasty right hip fracture. Weightbearing as tolerated. Continue vancomycin. Hospitalist following for type 2 diabetes GERD, hypertension, depression and anxiety supraventricular tachycardia, acute on chronic anemia they anticipate discharge to residential facility tomorrow. Quality VTE Deep Vein Thrombosis/Pulmonary Embolism Present on Admission: No
[2020-09-23] MEDS: Insulin Glargine U-300 Conc [Toujeo Max U-300 Solostar] 22 EACH SUBCUT (12:40)
--- NOTE | 2020-09-23 13:09 | PT.IPTN ---
Current Diagnoses Type 2 diabetes mellitus without complications (09/20/20) Infection following a procedure, deep incisional surgical site, initial encounter (09/20/20) Presence of unspecified artificial hip joint (09/20/20) Surgery Performed Operation Date: 09/20/20 15:00 Actual Procedures p Incision and Drainage Wound/Extremity Right Hip(Right) - Mariana Rendon MD Physical Therapy Treatment Note M2 PT-IP Current Condition Start: 09/21/20 08:35 Freq: NEEDED Status: Active Protocol: Document 09/21/20 10:34 DE (Rec: 09/21/20 11:18 DE [id number]) Physical Therapy Current Condition Current Condition Evaluation Date 09/21/20 Treatment Diagnosis I&D R hip; Difficulty with walking Onset Date 09/20/20 Weight Bearing Status Weight Bearing Status Weight Bear as Tolerated M3 PT-IP Subjective Start: 09/21/20 08:35 Freq: NEEDED Status: Active Protocol: Document 09/23/20 12:29 DE (Rec: 09/23/20 13:00 DE [id number]) Subjective Physical Therapy Visit Type Type Treatment Note Visit Start Time 11:44 Visit Stop Time 12:03 Total Visit Minutes 19 Notes DAVID Butler led the session under direct supervision of PT Sundeep throughout the entire session. Number of TEMPORARY OFFICE ASSISTANT Visits 0 Physical Therapy Visit Comments Patient Comments Pt is agreeable to do PT. Patient Goals To return home. M4 PT-IP Mobility and Gait Start: 09/21/20 08:35 Freq: NEEDED Status: Active Protocol: Document 09/23/20 12:29 DE (Rec: 09/23/20 13:00 DE [id number]) PT-Bed Mobility Assessment Supine to Sit Supine to Sit Standby Assistance Scooting Scooting to Edge of Bed Standby Assistance PT-Transfer Assessment Sit to and From Stand Sit to and from Stand Contact Guard Assistance Equipment Transfer Assistive Device Gait Belt,Front Wheeled Walker Orthotic/Prosthetic Devices or Brace: No Transfers Transfer Destination Chair Transfer Technique Stand Step Pivot Transfer Ability Level of Assist Standby Assistance Comments Mobility Comments Pt was lying supine in bed with elevated HOB upon arrival . HR was high 120s. Pt performed bed exercises including ankle pumps, heel slides, quad sets, short arc quad, straight leg raise, and hip abduction/adduction. See treatment section for details. Pt had difficulty performing exercises on the RLE. HR maintained in the high 120s throughout the exercises. Pt completed supine to sit at R EOB with SBA and use of BUE. Pt then performed sit to stand with FWW CGA. In standing, HR increased to mid-high 130s. Pt performed stand-step pivot transfer to the chair that was on the R side with FWW CGA. In sitting, HR returned to high 120s again. Call light placed within reach. MEDICAL AFFAIRS SPECIALIST came in as PT and SPT were heading out. MEDICAL AFFAIRS SPECIALIST remained in the room. Gait Assessment Comments Gait Comments Not performed. Stair Climbing Assessment Comments Stair Climbing Comments Not assessed. No stairs at [address]. PT-Balance Assessment Sitting Balance and Reactions Static Sitting Balance Ability Good Dynamic Sitting Balance Ability Good Standing Balance and Reactions Static Standing Balance Ability Good Dynamic Standing Balance Ability Fair Device Used FWW M5 PT-IP Objective Assessments Start: 09/21/20 08:35 Freq: NEEDED Status: Active Protocol: Document 09/21/20 10:34 DE (Rec: 09/21/20 11:18 DE [id number]) Orientation Orientation/Cognition Level of Alertness Alert Orientation Name,Age,Birthday,Month,Date, Year,Day of Week,Place, Situation Language Function Ability No Deficits Noted Safety Awareness Understands Safety Issues Memory Description No Deficits Noted Gross Range of Motion Upper Extremity ROM Assessment Left Impaired Impairments Shoulder AROM are limited to 90 deg of flexion and 45 deg of abduction d/t proximal humerus fracture that was sustained during the fall in July 2020. Lower Extremity ROM Assessment Right Impaired Strength Lower Extremity Strength Assessment Right Impaired Coordination Assessment Gross Coordination Gross Coordination WNL Sensation Assessment Sensation Gross Sensation WNL Light Touch Intact Muscle Tone Muscle Tone WNL Yes M6 PT-IP Treatment Start: 09/21/20 08:35 Freq: NEEDED Status: Active Protocol: Document 09/23/20 12:29 DE (Rec: 09/23/20 13:00 DE [id number]) Physical Therapy Treatment Education Education Provided Safety Other Treatments Other Treatment Performed Pt performed following supine exercises: -B ankle pumps 20x -B quad sets 3 sec holds 8x -Heel slides both sides 10x -Straight leg raise both sides 10x -Short arc quad 3 sec holds 8x -Hip abduction/adduction both sides 10x M7 PT-IP Assessment and Plan Start: 09/21/20 08:35 Freq: NEEDED Status: Active Protocol: Document 09/23/20 12:29 DE (Rec: 09/23/20 13:00 DE [id number]) PT Summary Assessment and Plan Potential Rehabilitation Potential Good Status of Condition at Evaluation Stable Summary Impairments Pain,ROM,Strength,Balance,Bed Mobility,Transfers,Gait, Activity Tolerance Progress Towards Goals Progressing Toward Goals,Slow Progress due to Activity Tolerance Assessment Summary Pt continues to have elevated HR. HR was in the high 120s at rest and in the mid-high 130s with mobility. Due to tachycardia, session focused on light bed exercises and transfer to chair for lunch. No labored breathing or abnormal fatigue was observed. Pt changed initial plan to go home and now plans to d/c to SNF this afternoon or tomorrow according to SW. Goals Bed Mobility Goal Standby Assistance Transfer Goal Standby Assistance,Front Wheeled Walker Gait Goal Standby Assistance,Front Wheel Walker Gait Distance 100 Days to Meet Goals 5 Frequency of Treatment Frequency Of Treatment Twice a Day Treatment Plan Physical Therapy Treatment Plan Bed Mobility Training,Transfer Training,Gait Training, Therapeutic Exercise,Balance Retraining,Post Op Education, Discharge Planning,Hot or Cold Pack Other Recommendations and Next Treatment Amb distance; ther ex as Focus tolerated Recommendations To Nursing Amount of Assist Needed 1 Person Assist Discharge Recommendations PT Discharge Recommendations Home with Assistance,Home Health,SNF Rehab Equipment Needed for Home Before FWW if pt prefers vs standard Discharge walker which she has at home Transportation Needs at Discharge Private Vehicle This session is led by SPT Luke Barker and supervised by PT Nabil Ross. This note has been reviewed and approved.
--- NOTE | 2020-09-23 14:05 | P.PN_ITS ---
Subjective Subjective Date Patient Seen: 09/23/20 Time Patient Seen: 14:06 Interval history: The patient is an 85-year-old female with a history of hypertension, type 2 diabetes, GERD, osteoporosis, who is admitted with a right hip infection now status post operative drainage with Orthopedic surgery on September 20. Wound cultures have grown MRSA, and the patient will require at least 2 weeks of IV antibiotics with vancomycin. She is not currently therapeutic on her vancomycin, trough scheduled for tomorrow. She remains tachycardic, intermittently in the 130s, which is supraventricular in nature. S/p 3L of IVF with mild improvement. Increasing metoprolol dosing at this time. Patient remains asymptomatic and states she feels well today with improving hip pain. Discharge to SNF planned once tachyarrythmia is improved for continued IV antibiotics. Exam Vital Signs (past 8 hours): - 09/23/20 08:00 09/23/20 12:00 Temperature 97.9 F 97.9 F Pulse Rate 119 H 127 H Respiratory Rate 18 18 Blood Pressure 129/73 123/65 Pulse Oximetry 98 99 Oxygen Delivery Method Room Air Oxygen Flow Rate 0 Narrative Exam Narrative: GENERAL APPEARANCE: Well developed, well nourished, in no acute distress. SKIN: Inspection of the skin reveals no rashes, ulcerations or petechiae. HEENT: Normocephalic atraumatic, extraocular muscles are intact, oropharynx is clear and mucous membranes are moist, neck is supple without adenopathy NECK: Supple and symmetric. There was no thyroid enlargement, and no tenderness, or masses were felt. CHEST: Normal AP diameter and normal contour without any kyphoscoliosis. LUNGS: Auscultation of the lungs revealed no wheezes, rhonchi, or rales. CARDIOVASCULAR: Tachycardic rate with regular rhythm without any murmurs, gallops, rubs. Peripheral pulses were 2+ and symmetric. ABDOMEN: Soft and nontender with normal bowel sounds. No ascites was noted. MUSCULOSKELETAL: There was no tenderness or effusions noted. PICC line in place RUE without erythema or induration. surgical dressing R hip c/d/i. EXTREMITIES: No cyanosis, clubbing. Minimal non-pitting edema bilateral lower extremitites NEUROLOGIC: Alert Normal affect. Strength is +5/5 in the Upper Extremities and Lower Extremities Bilaterally. Sensation to touch was normal. Objective Labs Result Diagrams: 09/23/20 05:48 09/23/20 05:48 Labs: Laboratory Results - last 24 hr 09/22/20 09/23/20 09/23/20 13:55 05:48 05:48 WBC 2.9 L RBC 2.84 L Hgb 8.8 L Hct 26.1 L MCV 91.8 MCH 30.8 MCHC 33.6 RDW 13.7 Plt Count 198 Neut % (Auto) 30.9 L Lymph % (Auto) 56.4 H [place] % (Auto) 12.4 Eos % (Auto) 0.2 L Baso % (Auto) 0.1 Neut # (Auto) 900 L Lymph # (Auto) 1600 [place] # (Auto) 400 Eos # (Auto) 0 Baso # (Auto) 0 Sodium 134 L 134 L Potassium 4.3 4.2 Chloride 107 107 Carbon Dioxide 25 28 BUN 16 13 Creatinine 0.73 0.56 Estimated GFR > 60.0 > 60.0 BUN/Creatinine Ratio 21.9 23.2 H Glucose 147 H 166 H Calcium 8.3 L 8.0 L Magnesium 1.9 1.4 L Iron TIBC % Saturation Transferrin Troponin I < 0.012 09/23/20 05:48 WBC RBC Hgb Hct MCV MCH MCHC RDW Plt Count Neut % (Auto) Lymph % (Auto) [place] % (Auto) Eos % (Auto) Baso % (Auto) Neut # (Auto) Lymph # (Auto) [place] # (Auto) Eos # (Auto) Baso # (Auto) Sodium Potassium Chloride Carbon Dioxide BUN Creatinine Estimated GFR BUN/Creatinine Ratio Glucose Calcium Magnesium Iron 77 TIBC 212 L % Saturation 36 Transferrin 146 L Troponin I Assessment & Plan Assessment & Plan narrative: 85-year-old female with PMH of DM2, HTN, chronic anemia admitted to the hospital for a postoperative right hip infection, now s/p I&D with orthopedic surgery, remains admitted for continued tachycardia. 1. R hip postoperative wound infection and abscess (SSI), acute, present on admission. -patient is status post right hip arthroplasty in [place], now s/p I&D with orthopedic surgery here on 09/20/20. Doing well postoperatively. -Wound cultures growing MRSA, continue vancomycin. 2 weeks of IV therapy recommended once therapeutic. Currently subtherapeutic with trough of 9 today, dosing increased per pharmacy today. -PICC line placed 09/21. -outpatient f/u with orthopedic surgery. 2. Type 2 diabetes, chronic. -hold oral medications in the hospital -will continue basal bolus insulin and adjust as necessary. 3. GERD -will continue proton pump inhibitor 4. Hypertension, chronic, present on admission, -continue losartan and Cardizem 5. Depression and anxiety, chronic, stable. -continue Apresoline and Lexapro 6. Supraventricular tachycardia, acute, not present on admission - repeat labs unremarkable including troponin. No evidence of ischemia noted on EKG. Patient asymptomatic during episodes. - rate improved with 5 mg IV metoprolol intially and fluid boluses. Continue to titrate up metoprolol now at 50 mg BID. - telemetry monitoring - TTE ordered, if improved can obtain as an outpatient. 7. Acute on chronic anemia - likely in the setting of acute blood loss anemia from her surgery. Hg now 8.8. Iron profile with low transferrin. Will start oral iron. Code: DNR, patient's surrogate caregiver is her daughter Dispo: anticipate discharge to SNF as soon as tomorrow given SVT today. Quality VTE Deep Vein Thrombosis/Pulmonary Embolism Present on Admission: No
--- NOTE | 2020-09-23 14:09 | DI.ECHO.S_ITS ---
[facility]---------+ [facility] +---------+ : : [address] [place] : : : : [id number] : : : : Phone: [phone]+ Echocardiogram Report + + :Name: JUICE RENE Study Date: 09/24/2020 Height: 61 in : :[facility] Weight: 160 lb : : Gender: Female BSA: 1.7 m2 : :: 1935 Age: 85 yrs BP: 145/72 mmHg: :Reason For Study: SUPRAVENTRICULAR TACHYCARDIA : :Ordering Physician: GREG, : :SHONDA DONALDSON Performed By: Gayla Marshall : :Referring: SHONDA GARZA : + + Interpretation Summary Left ventricular wall thickness is mildly increased. Left ventricular systolic function appears normal without focal wall motion abnormalities. The ejection fraction is estimated to be 60-65%. Diastolic parameters suggest a pseudonormalization pattern, consistent with probable elevated filling pressures. The right ventricle is normal in size and function. The right ventricular systolic pressure is estimated to be at least 37 mmHg based on an estimated right atrial pressure of 3 mm Hg. The left atrium is moderately dilated. Right atrial size is normal. There is moderate to severe mitral annular calcification. There is mild mitral stenosis. The mitral valve mean gradient is 4.2 mmHg. There is mild mitral regurgitation. There is no other significant valvular heart disease. The aortic root is normal size. Procedure: A two-dimensional transthoracic echocardiogram with color flow and Doppler was performed. The study quality was technically adequate. There is no prior echocardiogram noted for this patient. The patient was in sinus rhythm with heart rates between 77-81 bpm during the exam. Left Ventricle: The left ventricle is normal in size. Left ventricular wall thickness is mildly increased. Left ventricular systolic function appears normal without focal wall motion abnormalities. The ejection fraction is estimated to be 60-65%. Diastolic parameters suggest a pseudonormalization pattern, consistent with probable elevated filling pressures. Right Ventricle: The right ventricle is normal in size and function. Atria: The left atrium is moderately dilated. Right atrial size is normal. There is no Doppler evidence for an interatrial shunt. Mitral Valve: There is moderate to severe mitral annular calcification. The mitral valve leaflets are moderately calcified. There is mild mitral stenosis. The mitral valve mean gradient is 4.2 mmHg. There is reduced mobility of the posterior mitral valve leaflet. There is mild mitral regurgitation. Aortic Valve: The aortic valve is trileaflet. The aortic valve opens well. There is no aortic valve stenosis. No aortic regurgitation is present. Tricuspid Valve: The tricuspid valve is normal in structure and function. There is mild tricuspid regurgitation. The right ventricular systolic pressure is estimated to be at least 37 mmHg based on an estimated right atrial pressure of 3 mm Hg. Pulmonic Valve: The pulmonic valve leaflets are thin and pliable; valve motion is normal. There is trace pulmonic regurgitation. There is no other significant valvular heart disease. Great Vessels: The aortic root is normal size. The dimensions of the ascending aorta are normal. The IVC is of normal diameter and collapses greater than 50% with a sniff. This suggests a low right atrial pressure of 3 mm Hg. Pericardium/ Pleura There is no pericardial effusion. There is no pleural effusion. MMode/2D Measurements & Calculations LVIDd: 4.8 cm LVOT diam: 2.0 cm LVIDs: 3.1 cm Ao root diam: 3.0 cm FS: 34.6 % asc Aorta Diam: 3.2 cm EPSS: 1.4 cm Ao Arch Diam (Prox Trans): 2.2 cm IVSd: 1.1 cm LVPWd: 1.2 cm LV cole. diameter/BSA (cm/m^2): 2.8 LV sys. diameter/BSA (cm/m^2): 1.8 LA A2 area: 26.0 cm2 RA long axis: 5.7 cm LA A4 area: 22.2 cm2 RA area: 16.7 cm2 LA length (vol): 5.7 cm RA vol: 41.6 ml LA vol: 85.4 ml RA : 24.2 ml/m2 LA vol index: 49.7 ml/m2 IVC diam: 1.8 cm RVD1 (basal): 3.7 cm TAPSE: 2.4 cm Doppler Measurements & Calculations Ao V2 max: 139.6 cm/sec LVOT Max Petros: 105.4 cm/sec Ao V2 mean: 89.7 cm/sec LV V1 max P.4 mmHg Ao max P.8 mmHg LV V1 VTI: 25.5 cm Ao mean P.9 mmHg GERARDO(I,D): 2.6 cm2 Ao V2 VTI: 30.0 cm GERARDO(V,D): 2.3 cm2 sev ratio: 0.85 GERARDO indexed to BSA (cm^2/m^2): 1.5 MV E max petros: 150.9 cm/sec TR max petros: 289.2 cm/sec MV A max petros: 126.7 cm/sec TR max P.5 mmHg MV E/A: 1.2 PA V2 max: 73.8 cm/sec Med Peak E' Petros: 6.6 cm/sec PA V2 mean: 51.0 cm/sec E/E' med: 22.7 PA mean P.2 mmHg Lat Peak E' Petros: 8.2 cm/sec PA pr(Accel): 56.7 mmHg E/E' lat: 18.3 E/e' average: 20.5 MV dec time: 0.26 sec MVA(VTI): 1.9 cm2 MV V2 mean: 94.6 cm/sec SV(LVOT): 77.0 ml MV mean P.2 mmHg MV V2 VTI: 39.5 cm Reading Physician:01:09 PM
[2020-09-23 15:12] LABS: COVID19 -Nasal RAPID Negative (Negative)
--- NOTE | 2020-09-23 15:50 | PT.IPTN ---
Current Diagnoses Type 2 diabetes mellitus without complications (09/20/20) Infection following a procedure, deep incisional surgical site, initial encounter (09/20/20) Presence of unspecified artificial hip joint (09/20/20) Surgery Performed Operation Date: 09/20/20 15:00 Actual Procedures p Incision and Drainage Wound/Extremity Right Hip(Right) - Mariana Rendon MD Physical Therapy Treatment Note M2 PT-IP Current Condition Start: 09/21/20 08:35 Freq: NEEDED Status: Active Protocol: Document 09/21/20 10:34 DE (Rec: 09/21/20 11:18 DE [id number]) Physical Therapy Current Condition Current Condition Evaluation Date 09/21/20 Treatment Diagnosis I&D R hip; Difficulty with walking Onset Date 09/20/20 Weight Bearing Status Weight Bearing Status Weight Bear as Tolerated M3 PT-IP Subjective Start: 09/21/20 08:35 Freq: NEEDED Status: Active Protocol: Document 09/23/20 15:25 HH (Rec: 09/23/20 15:50 HH [email or web address]) Subjective Physical Therapy Visit Type Type Treatment Note Visit Start Time 15:01 Visit Stop Time 15:22 Total Visit Minutes 21 Number of FERRYBOAT OPERATOR HELPER Visits 0 Physical Therapy Visit Comments Patient Comments Pt is agreeable to mobilize with PT. Patient Goals To return home. M4 PT-IP Mobility and Gait Start: 09/21/20 08:35 Freq: NEEDED Status: Active Protocol: Document 09/23/20 15:25 HH (Rec: 09/23/20 15:50 HH [email or web address]) PT-Bed Mobility Assessment Supine to Sit Supine to Sit Standby Assistance Scooting Scooting to Edge of Bed Standby Assistance PT-Transfer Assessment Sit to and From Stand Sit to and from Stand Contact Guard Assistance Equipment Transfer Assistive Device Gait Belt,Front Wheeled Walker Orthotic/Prosthetic Devices or Brace: No Transfers Transfer Destination Bed,Chair Transfer Technique Stand Step Pivot Transfer Ability Level of Assist Standby Assistance Comments Mobility Comments Pt was lying in bed with elevated HOB upon PT arrival. Resting HR at 72 and asymptomatic. Pt then completed supine to sit and pivoted to R side SBA from elevated HOB. Pt then stood up from bed by pushing off from FWW SBA. Pt proceeded to amb with FWW SBA. Pt walked around the foot of bed and out to hallway. She finished a total of 65 ft. Pt stopped at the middle and rested for 20 secs d/t increased SOB , HR at 85. Pt amb with step to pattern slowly but steady. Pt then returned to bedside chair safely with good stand step transfer. HR at 78 in sitting. Call light placed within reach. Gait Assessment Gait Gait Assistance Required: Standby Assistance Distance (Feet) 65 Able to Maintain Weight Bearing Status Yes During Gait Assistive Devices Assistive Device Gait Belt,Front Wheeled Walker Orthotic/Prosthetic Devices or Brace: No Gait Deviations General Gait Pattern Antalgic,Decreased Stride Length,Decreased Feet Clearance,Flexed Trunk,Step-to Gait Factors Limiting Gait Function Factors Limiting Gait Function Decreased Activity Tolerance, Decreased Strength,Limited Range of Motion,Pain,Poor Balance Comments Gait Comments See mobility comments. Stair Climbing Assessment Comments Stair Climbing Comments Not assessed. PT-Balance Assessment Sitting Balance and Reactions Static Sitting Balance Ability Good Dynamic Sitting Balance Ability Good Standing Balance and Reactions Static Standing Balance Ability Good Dynamic Standing Balance Ability Fair Device Used FWW M5 PT-IP Objective Assessments Start: 09/21/20 08:35 Freq: NEEDED Status: Active Protocol: Document 09/21/20 10:34 DE (Rec: 09/21/20 11:18 DE [id number]) Orientation Orientation/Cognition Level of Alertness Alert Orientation Name,Age,Birthday,Month,Date, Year,Day of Week,Place, Situation Language Function Ability No Deficits Noted Safety Awareness Understands Safety Issues Memory Description No Deficits Noted Gross Range of Motion Upper Extremity ROM Assessment Left Impaired Impairments Shoulder AROM are limited to 90 deg of flexion and 45 deg of abduction d/t proximal humerus fracture that was sustained during the fall in July 2020. Lower Extremity ROM Assessment Right Impaired Strength Lower Extremity Strength Assessment Right Impaired Coordination Assessment Gross Coordination Gross Coordination WNL Sensation Assessment Sensation Gross Sensation WNL Light Touch Intact Muscle Tone Muscle Tone WNL Yes M6 PT-IP Treatment Start: 09/21/20 08:35 Freq: NEEDED Status: Active Protocol: Document 09/23/20 12:29 DE (Rec: 09/23/20 13:00 DE [id number]) Physical Therapy Treatment Education Education Provided Safety Other Treatments Other Treatment Performed Pt performed following supine exercises: -B ankle pumps 20x -B quad sets 3 sec holds 8x -Heel slides both sides 10x -Straight leg raise both sides 10x -Short arc quad 3 sec holds 8x -Hip abduction/adduction both sides 10x M7 PT-IP Assessment and Plan Start: 09/21/20 08:35 Freq: NEEDED Status: Active Protocol: Document 09/23/20 15:25 HH (Rec: 09/23/20 15:50 HH [email or web address]) PT Summary Assessment and Plan Potential Rehabilitation Potential Good Status of Condition at Evaluation Stable Summary Impairments Pain,ROM,Strength,Balance,Bed Mobility,Transfers,Gait, Activity Tolerance Progress Towards Goals Progressing Toward Goals,Slow Progress due to Activity Tolerance Assessment Summary pt showed improvements for this pm session. Her resting HR at 70s and up to high 80s during mobility. Pt was SOB after 30 ft of amb but she stated that was her baseline. In my opinion, pt will still benefit from skilled therapy because her need for nursing care after sx, decreased mobility and strength. Goals Bed Mobility Goal Standby Assistance Transfer Goal Standby Assistance,Front Wheeled Walker Gait Goal Standby Assistance,Front Wheel Walker Gait Distance 100 Days to Meet Goals 5 Frequency of Treatment Frequency Of Treatment Twice a Day Treatment Plan Physical Therapy Treatment Plan Bed Mobility Training,Transfer Training,Gait Training, Therapeutic Exercise,Balance Retraining,Post Op Education, Discharge Planning,Hot or Cold Pack Other Recommendations and Next Treatment Amb distance; ther ex as Focus tolerated Recommendations To Nursing Amount of Assist Needed 1 Person Assist Discharge Recommendations PT Discharge Recommendations Home with Assistance,Home Health,SNF Rehab Equipment Needed for Home Before FWW if pt prefers vs standard Discharge walker which she has at home Transportation Needs at Discharge Private Vehicle
[2020-09-23] MEDS: METOPROLOL ER 50 MG TABLET PO (20:11)
[2020-09-24] VITALS (7 sets, daily range): BP systolic 107–147; BP diastolic 58–83; PULSE 75–122; RESP 16–18; TEMP 36.3–36.5; O2SAT 97–99
[2020-09-24 01:21] LABS: Bacteria Urine None Seen; WBC Urine None Seen (0-5/HPF)
[2020-09-24 01:28] LABS: Culture Indicated Urine Cult Not Indicated; RBC Urine 0-1/HPF (0-5/HPF); Squamous Epithelial Cell Urine 0-1 /HPF (0-5/HPF)
--- NOTE | 2020-09-24 02:14 | PC.NURSE ---
Addendum entered by Syl Cole R.N. 09/24/20 05:43: Wakened for morning lab draw and patient states she still has a headache and rates severity as 6/10 so medicated with Ibuprofen. Addendum entered by Syl Cole R.N. 09/24/20 04:49: While this RN was on break patient requested something for headache but did not want any narcotics and has no other prn pain medication ordered. On return RN contacted Cyrus HERNÁNDEZ, for Ibuprofen order which was then ordered, but when went into room to give to patient she was sleeping. Original Note: Patient seen at 0057. Is alert and oriented. Breath sounds CTA with RA sat of 99%. HRR; telemetry reading was SR with rate of 69. Denies nausea. BT present and is passing flatus. Continues to complain of pain with urination and noted to be urinating frequently; discussed with Cyrus HERNÁNDEZ, and order received for urine to be sent to lab. Is able to turn herself in bed. Up to bathroom with SBA + walker. No new drainage on aquacel dressing which is intact to right hip. Hemovac site dressing is CDI. CMS bilaterally intact although still has some difficulty with moving right leg; uses arms to pick leg up when getting back into bed. Wearing bilateral calf SCD's. Denies pain. Continues on contact isolation for MRSA in wound. Fall risk score is high and bed alarm is activated.
[2020-09-24] MEDS: SODIUM CHLORIDE 0.9% FLUSH 10 ML IV ×2 (05:28→09:17)
[2020-09-24] MEDS: IBUPROFEN 400 MG TABLET PO (05:28)
[2020-09-24 05:49] LABS: Add Manual Diff / Slide Review NO; Basophils Absolute Auto 0 /uL (0-100); Basophils Percent Auto 0.1 % (0-2); Eosinophils Absolute Auto 0 /uL (0-450); Eosinophils Percent Auto 0.1 % (2-4); Hematocrit 26.3 % (36-46); Hemoglobin 8.9 g/dL (12.0-16.0); Lymphocytes Absolute Auto 1600 /uL (1100-4500); Lymphocytes Percent Auto 51.6 % (25-40); Mean Corpuscular HGB Conc 33.9 % (30-36); Mean Corpuscular Hemoglobin 31.2 PG (26-34); Mean Corpuscular Volume 92.1 fL (80-100); Monocytes Absolute Auto 300 /uL (0-900); Monocytes Percent Auto 11.3 % (3-14); Neutrophils Absolute Auto 1100 /uL (1500-7000); Neutrophils Percent Auto 36.9 % (50-75); Platelet Count 201 X10^3/uL (150-400); Red Blood Cell Count 2.85 X10^6/uL (4.0-5.2); Red Cell Distribution Width 13.6 % (11.6-14.8); White Blood Cell Count 3.1 X10^3/uL (4.5-11.0)
[2020-09-24 05:56] LABS: Blood Urea Nitrogen 9 mg/dL (7-17); Calcium 8.2 mg/dL (8.4-10.2); Carbon Dioxide 28 mmol/L (22-32); Chloride 109 mmol/L (98-107); Estimated Glomerular Filt Rate > 60.0 mL/min (>60); Glucose 110 mg/dL (80-110); HEMOLYSIS < 15 (0-50); Magnesium 1.5 mg/dL (1.6-2.3); Potassium 4.1 mmol/L (3.4-5.1); Sodium 136 mmol/L (137-145)
[2020-09-24] MEDS: VANCOMYCIN 1,000 MG/200 ML PIGGYBACK 200 MG IV (06:33)
[2020-09-24] MEDS: PANTOPRAZOLE 40 MG TABLET PO (06:33)
--- NOTE | 2020-09-24 08:15 | PT.IPTN ---
Current Diagnoses Type 2 diabetes mellitus without complications (09/20/20) Infection following a procedure, deep incisional surgical site, initial encounter (09/20/20) Presence of unspecified artificial hip joint (09/20/20) Surgery Performed Operation Date: 09/20/20 15:00 Actual Procedures p Incision and Drainage Wound/Extremity Right Hip(Right) - Mariana Rendon MD Physical Therapy Treatment Note M2 PT-IP Current Condition Start: 09/21/20 08:35 Freq: NEEDED Status: Active Protocol: Document 09/24/20 08:24 MA (Rec: 09/24/20 08:33 MA [email or web address]) Physical Therapy Current Condition Current Condition Evaluation Date 09/21/20 Treatment Diagnosis I&D R hip; Difficulty with walking Onset Date 09/20/20 Weight Bearing Status Weight Bearing Status Weight Bear as Tolerated M3 PT-IP Subjective Start: 09/21/20 08:35 Freq: NEEDED Status: Active Protocol: Document 09/24/20 08:24 MA (Rec: 09/24/20 08:33 MA [email or web address]) Subjective Physical Therapy Visit Type Type Treatment Note Visit Start Time 07:44 Visit Stop Time 08:15 Total Visit Minutes 31 Number of STEWARDING SUPERVISOR Visits 1 Physical Therapy Visit Comments Patient Comments Pt is agreeable to mobilize with PT. States she did not sleep well because she had to go to the bathroom every hour all night Patient Goals To return home. Therapy Pain Assessment Pain Present Pain Present Pain Reported Location Right Hip Intensity 2 Scale Used Numeric (0 - 10) Description Aching M4 PT-IP Mobility and Gait Start: 09/21/20 08:35 Freq: NEEDED Status: Active Protocol: Document 09/24/20 08:33 MA (Rec: 09/24/20 08:37 MA [email or web address]) PT-Bed Mobility Assessment Supine to Sit Supine to Sit Standby Assistance Scooting Scooting to Edge of Bed Standby Assistance PT-Transfer Assessment Sit to and From Stand Sit to and from Stand Standby Assistance Equipment Transfer Assistive Device Gait Belt,Front Wheeled Walker Orthotic/Prosthetic Devices or Brace: No Transfers Transfer Destination Bed,Chair,Toilet Transfer Technique Stand Step Pivot Transfer Ability Level of Assist Standby Assistance Comments Mobility Comments Pt laying in bed, able to complete bed mobility SBA. Sit <>stand from bed and toilet, SBA. Ambulated 65 feet with no rest breaks today and step- thru gait pattern with decreased stance time on RLE Gait Assessment Gait Gait Assistance Required: Standby Assistance Distance (Feet) 65 Able to Maintain Weight Bearing Status Yes During Gait Assistive Devices Orthotic/Prosthetic Devices or Brace: No Gait Deviations General Gait Pattern Antalgic,Decreased Stride Length,Decreased Feet Clearance,Flexed Trunk Factors Limiting Gait Function Factors Limiting Gait Function Decreased Activity Tolerance, Decreased Strength,Limited Range of Motion,Pain,Poor Balance Comments Gait Comments See mobility comments. Stair Climbing Assessment Comments Stair Climbing Comments Not assessed. PT-Balance Assessment Sitting Balance and Reactions Static Sitting Balance Ability Good Dynamic Sitting Balance Ability Good Standing Balance and Reactions Static Standing Balance Ability Good Dynamic Standing Balance Ability Fair Device Used FWW M5 PT-IP Objective Assessments Start: 09/21/20 08:35 Freq: NEEDED Status: Active Protocol: Document 09/21/20 10:34 DE (Rec: 09/21/20 11:18 DE [email or web address]) Orientation Orientation/Cognition Level of Alertness Alert Orientation Name,Age,Birthday,Month,Date, Year,Day of Week,Place, Situation Language Function Ability No Deficits Noted Safety Awareness Understands Safety Issues Memory Description No Deficits Noted Gross Range of Motion Upper Extremity ROM Assessment Left Impaired Impairments Shoulder AROM are limited to 90 deg of flexion and 45 deg of abduction d/t proximal humerus fracture that was sustained during the fall in July 2020. Lower Extremity ROM Assessment Right Impaired Strength Lower Extremity Strength Assessment Right Impaired Coordination Assessment Gross Coordination Gross Coordination WNL Sensation Assessment Sensation Gross Sensation WNL Light Touch Intact Muscle Tone Muscle Tone WNL Yes M6 PT-IP Treatment Start: 09/21/20 08:35 Freq: NEEDED Status: Active Protocol: Document 09/24/20 08:24 MA (Rec: 09/24/20 08:33 MA [email or web address]) Physical Therapy Treatment Education Education Provided Safety Other Treatments Other Treatment Performed Pt performed following seated exercises: -heel lifts 2x10 -toe lifts 2x10 -marches x20 -LAQ x10 2x Sit<>Stand from bed and from toilet SBA M7 PT-IP Assessment and Plan Start: 09/21/20 08:35 Freq: NEEDED Status: Active Protocol: Document 09/24/20 08:24 MA (Rec: 09/24/20 08:33 MA [email or web address]) PT Summary Assessment and Plan Potential Rehabilitation Potential Good Status of Condition at Evaluation Stable Summary Impairments Pain,ROM,Strength,Balance,Bed Mobility,Transfers,Gait, Activity Tolerance Progress Towards Goals Progressing Toward Goals,Slow Progress due to Activity Tolerance Assessment Summary Pt was able to walk same distance as yesterday stating tiredness as the reason she did not want to walk further. Pt agreeable to try further walk in PM session. Performed exercises seated in chair today with no difficulty. Vitals taken prior to session with nurse reporting she was stable and ready for therapy. Nurse disconnected IV line prior to session. Goals Bed Mobility Goal Standby Assistance Transfer Goal Standby Assistance,Front Wheeled Walker Gait Goal Standby Assistance,Front Wheel Walker Gait Distance 100 Days to Meet Goals 5 Frequency of Treatment Frequency Of Treatment Twice a Day Treatment Plan Physical Therapy Treatment Plan Bed Mobility Training,Transfer Training,Gait Training, Therapeutic Exercise,Balance Retraining,Post Op Education, Discharge Planning,Hot or Cold Pack Other Recommendations and Next Treatment Increase Amb distance; ther ex Focus as tolerated Recommendations To Nursing Amount of Assist Needed Standby Assistance Discharge Recommendations PT Discharge Recommendations Home with Assistance,Home Health,SNF Rehab Equipment Needed for Home Before FWW if pt prefers vs standard Discharge walker which she has at home Transportation Needs at Discharge Private Vehicle
[2020-09-24] MEDS: dilTIAZem CD 240 MG CAP PO (09:09)
[2020-09-24] MEDS: ESCITALOPRAM 10 MG TABLET PO (09:09)
[2020-09-24] MEDS: INSULIN ASPART 100 UNIT/ML INSULN PEN SUBCUT ×2 (09:10→12:07)
[2020-09-24] MEDS: Insulin Glargine U-300 Conc [Toujeo Max U-300 Solostar] 22 EACH SUBCUT (09:11)
[2020-09-24] MEDS: METOPROLOL ER 50 MG TABLET PO (09:14)
[2020-09-24] MEDS: LOSARTAN 50 MG TABLET PO (09:15)
[2020-09-24] MEDS: DOCUSATE 100 MG CAPSULE PO (09:16)
[2020-09-24] MEDS: FERROUS SULFATE 325 MG TABLET PO (09:16)
[2020-09-24] MEDS: GABAPENTIN 100 MG CAPSULE PO (09:16)
[2020-09-24] MEDS: ACETAMINOPHEN 325 MG TABLET 975 MG PO (09:16)
--- NOTE | 2020-09-24 10:21 | PM.DS.1 ---
History of Present Illness History of Present Illness Date Patient Seen: 09/20/20 Chief complaint: post surgical abcess rt hip Narrative: Written by Dr. Gray: The patient is an 85-year-old female with a history of hypertension, type 2 diabetes, GERD, osteoporosis, who underwent right hip replacement in July this year. The patient was living in [place] at the time. She was then [facility]. At the penitentiary facility she had some soreness over the right hip. This was felt to be due to some scar tissue. The patient moved to [facility] on Monday to live with her daughter. Upon arrival the daughter noted the right hip was erythematous and warm. She was seen by Dr. Eng who started her on TMP sulfa for possible infection. This morning the patient's daughter noted the right hip was swollen red warm and tender. There was an area of fluctuance as well. Patient was brought to the emergency department for evaluation. In the emergency room she was seen by Dr. Cantu from Orthopedic surgery. Arrangements were made to take her to the OR for an I and D of right hip abscess. Discharge Providers Provider Date of admission: 09/20/20 10:40 Discharge Date: 09/24/20 Primary care physician: Ulises Alva MD Consults: 09/20/20 09:53 Consult to Orthopedic Surgery Stat Comment: Consulting Provider: Mariana Rendon Reason for consultation: incision abcess Has provider been notified: Yes 09/20/20 16:47 Consult to Discharge Planning Routine Comment: Consult to Physical Therapy Evaluate & Treat Comment: Weightbear as tolerated right hip. Physician Instructions: Evaluate and Treat Consult to Respiratory Therapy Evaluate & Treat Comment: Physician Instructions: Evaluate and treat Discharge provider: Sera Webb DO Summary Hospital Course Discharge Diagnosis: 1. Acute right hip postoperative wound infection and abscess, present on admission. Resolving. 2. Supraventricular tachycardia, acute, not present on admission. Improving. 3. Acute on chronic normocytic anemia, present on admission. Stable. 4. Diabetes mellitus type 2, insulin using, chronic, present on admission. Stable. 5. GERD, chronic, present on admission. Stable. 6. Hypertension, chronic, present on admission. Stable. 7. Depression and anxiety, chronic, present on admission. Stable. Hospital Course: Peace Krishna is an 85-year-old female with a past medical history significant for hypertension, diabetes mellitus type 2, insulin using, depression, anxiety, GERD, and anemia admitted to the hospital for a postoperative right hip infection. 1. Acute right hip postoperative wound infection and abscess, present on admission. Resolving. -Patient is status post right hip arthroplasty in [place]. -Consulted Orthopedic surgery, Dr. Rendon, who performed I&D on 09/20/20. Follow-up with Dr. Rendon of orthopedic surgery in 2 weeks. -Wound cultures growing MRSA. Continue vancomycin 1000 mg every 12 hours for 2 weeks. PICC line placed 09/21/20. -Continued physical and occupational therapy evaluation and treatment. Continued weight-bearing as tolerated on right leg. 2. Supraventricular tachycardia, acute, not present on admission. Improving. -Patient's daughter reports that patient has history of tachycardia with anesthetic previously which lasted approximately 1 week. -Complete workup unrevealing including: Troponin which was negative, EKG which demonstrated sinus tachycardia without acute ischemic changes such as ST elevation or depression and echocardiogram did not demonstrate any wall motion abnormalities with EF 60-65%. Patient has been asymptomatic during episodes. -Continued metoprolol succinate 50 mg twice daily for 10 days. -Continued to monitor on telemetry. Patient remained in sinus rhythm/sinus tachycardia with heart rate 90 to 110's. 3. Acute on chronic normocytic anemia, present on admission. Stable. -Acute portion due to acute blood loss from surgery. Hemoglobin stable and improving now 8.9. Transfusion goal hemoglobin <7.0. -Iron profile demonstrated iron deficiency. Started and continued ferrous sulfate 325 mg daily. 4. Diabetes mellitus type 2, insulin using, chronic, present on admission. Stable. -Held home oral antihyperglycemics. -Continued [facility] blood glucose checks and medium-dose correctional scale insulin. -Continued home Lantus 22 units daily. -Continued heart healthy/carbohydrate consistent diet. 5. GERD, chronic, present on admission. Stable. -Continued equivalent of home omeprazole 20 mg daily. 6. Hypertension, chronic, present on admission. Stable. -Continued losartan 50 mg daily and diltiazem 240 mg daily. 7. Depression and anxiety, chronic, present on admission. Stable. -Continued home alprazolam 0.25 mg daily at bedtime and escitalopram 10 mg daily. Exam Vital Signs (past 8 hours): - 09/24/20 03:22 09/24/20 07:40 09/24/20 09:14 Temperature 97.6 F 97.4 F L Pulse Rate 102 H 110 H 122 H Pulse Rate [Orthostatic Lying] Pulse Rate [Orthostatic Sitting] Pulse Rate [Orthostatic Standing] Respiratory Rate 18 16 Blood Pressure 147/83 H 143/76 H Blood Pressure [Orthostatic Lying] Blood Pressure [Orthostatic Sitting] Blood Pressure [Orthostatic Standing] Pulse Oximetry 97 99 09/24/20 09:15 09/24/20 09:40 Temperature Pulse Rate 122 H Pulse Rate [Orthostatic Lying] 77 Pulse Rate [Orthostatic Sitting] 75 Pulse Rate [Orthostatic Standing] 87 Respiratory Rate Blood Pressure Blood Pressure [Orthostatic Lying] 122/65 Blood Pressure [Orthostatic Sitting] 133/58 L Blood Pressure [Orthostatic Standing] 141/73 H Pulse Oximetry Oxygen Delivery Method Room Air Oxygen Flow Rate 0 Narrative Exam Narrative: General: Elderly female sitting at side of bed and in no acute distress, well-developed, well-nourished, appropriately interactive. HEENT: Normocephalic, atraumatic. External ears without defect. Pupils equal, round, and reactive to light. Anicteric sclerae, moist conjunctivae, and no lid lag. Oropharynx free of erythema and cobble stoning with moist mucosa. Neck: Supple with full range of motion. No lymphadenopathy or thyromegaly. Cardiovascular: Regular rate and rhythm without murmurs, rubs, or gallops appreciated Pulmonary: Clear to auscultation bilaterally without crackles, wheezes, or rhonchi. Normal respiratory effort with no use of accessory muscles. Abdomen: Soft, obese, bowel sounds present, nontender, nondistended. No hepatosplenomegaly or masses appreciated. Extremities: No clubbing or cyanosis. Mild lymphedema. Skin: Normal temperature, turgor, and texture; no rash, ulcers, or subcutaneous nodules appreciated. Neurological: Cranial nerves grossly intact. Psychiatric: Normal mood and affect. Alert and oriented to person, place, and time. Objective Labs Result Diagrams: 09/24/20 05:30 09/24/20 05:30 Labs: Laboratory Results - last 24 hr 09/23/20 09/24/20 09/24/20 14:54 01:15 05:30 WBC 3.1 L RBC 2.85 L Hgb 8.9 L Hct 26.3 L MCV 92.1 MCH 31.2 MCHC 33.9 RDW 13.6 Plt Count 201 Neut % (Auto) 36.9 L Lymph % (Auto) 51.6 H [place] % (Auto) 11.3 Eos % (Auto) 0.1 L Baso % (Auto) 0.1 Neut # (Auto) 1100 L Lymph # (Auto) 1600 [place] # (Auto) 300 Eos # (Auto) 0 Baso # (Auto) 0 Sodium Potassium Chloride Carbon Dioxide BUN Creatinine Estimated GFR BUN/Creatinine Ratio Glucose Calcium Magnesium Urine RBC 0-1/hpf Urine WBC None seen Ur Squamous Epith Cells 0-1 /hpf Urine Bacteria None seen Ur Culture Indicated? Cult not indicated Vancomycin Trough COVID-19 PCR Negative 09/24/20 09/24/20 05:30 05:30 WBC RBC Hgb Hct MCV MCH MCHC RDW Plt Count Neut % (Auto) Lymph % (Auto) [place] % (Auto) Eos % (Auto) Baso % (Auto) Neut # (Auto) Lymph # (Auto) [place] # (Auto) Eos # (Auto) Baso # (Auto) Sodium 136 L Potassium 4.1 Chloride 109 H Carbon Dioxide 28 BUN 9 Creatinine 0.45 L Estimated GFR > 60.0 BUN/Creatinine Ratio 20.0 Glucose 110 Calcium 8.2 L Magnesium 1.5 L Urine RBC Urine WBC Ur Squamous Epith Cells Urine Bacteria Ur Culture Indicated? Vancomycin Trough 13.0 COVID-19 PCR Discharge Plan Discharge Plan Patient Disposition: SNF Transfer to: [facility] Discharge orders & Medications Prescriptions: New acetaminophen 325 mg Tablet 975 mg PO TID Qty: 30 RF: 0 metoprolol succinate 50 mg Tablet Extended Release 24 Hr 50 mg PO BID Qty: 20 RF: 0 ferrous sulfate 325 mg (65 mg iron) Tablet 325 mg PO DAILY Qty: 30 RF: 0 docusate sodium [DOK] 100 mg Capsule 100 mg PO BID Qty: 60 RF: 0 Slow-Mag 71.5 mg Tablet,Delayed Release (Dr/Ec) 71.5 mg PO DAILY Qty: 5 RF: 0 vancomycin-water inject (PEG) 1 gram/200 mL Piggyback 1,000 mg IV Q12H Qty: 28 RF: 0 Continued escitalopram oxalate 10 mg tablet 10 mg PO DAILY RF: 0 glimepiride 2 mg tablet 2 mg PO DAILY RF: 0 losartan 50 mg tablet 50 mg PO DAILY RF: 0 diltiazem HCl [Cartia XT] 240 mg capsule,extended release 24hr 240 mg PO DAILY RF: 0 Toujeo Max U-300 SoloStar 300 unit/mL (3 mL) insulin pen 22 unit SUBCUT DAILY Qty: 6 RF: 11 insulin lispro 100 unit/mL insulin pen 10 unit SUBCUT TID RF: 0 omeprazole 20 mg Capsule,Delayed Release(Dr/Ec) 20 mg PO DAILY RF: 0 tramadol 50 mg tablet 50 mg PO TID PRN (Reason: Pain (Scale Score 4-6)) Qty: 10 RF: 0 alprazolam 0.25 mg tablet 0.25 mg PO BEDTIME PRN (Reason: Sleep) Qty: 10 RF: 0 Discontinued sulfamethoxazole-trimethoprim [Bactrim DS] 800-160 mg tablet 1 tab PO Q12H 10 Days Qty: 20 RF: 0 Follow up/Referrals: Ulises Alva MD [Primary Care Provider] - Mariana Rendon MD [Physician] - 2 Weeks Diet/Activity/Treatments Diet: Carb-consistent/Diabetic, Low-fat, Low-sodium and Low-cholesterol Activity: Activity as tolerated with walker and weight-bearing as tolerated on right side. Continue physical and occupational therapy. [facility] Rehabilitation [facility] Reason for rehabilitation: Post-operative therapy Rehab type: Physical therapy and Occupational therapy Visit Report/Discharge Packet Instructions: How to Prevent Falls, DI for Incision and Drainage of a Joint, DI for Incision and Drainage, [facility]: Wound Care Discharge Data Primary Care Provider: Ulises Alva Quality VTE Deep Vein Thrombosis/Pulmonary Embolism Present on Admission: No
[2020-09-24] MEDS: MAGNESIUM CHLORIDE 64 MG TABLET 128 MG PO (10:59)
--- NOTE | 2020-09-24 12:07 | CM.DPC ---
DCP: continued. Met with pt just before Team Bedside Rounds and introduced self and role. Pt stated she expected to d/c today to [facility] and wondered if she should order lunch. Checked in with Dr. Webb and then with Romana/[facility]. Both confirmed pt was ready for d/c and [facility] has transport set up for 1330 w/c van. Pt updated. SNF orders and updated PASRR are faxed now to [facility]. LALITA Moralez is update. [employer] snf auth remains in place per Romana. P: d/c to [facility] today as per above. No d/c summary is available at this time.
--- NOTE | 2020-09-24 12:18 | CM.DPNOTE ---
Fax medications given to patient during their stay per Ashly to [facility] on 09/24/20. Peace Shea CM Accounting File Clerk.
--- NOTE | 2020-09-24 13:54 | PC.NURSE ---
Day shift: Pt picked up and taken to SNF at approx 1330. Dressing CDI. Transport person has SNF packet. Pt has her insulin pen in her bag. HR 77 last VS. Pain minimal rt hip 12/16. Pt has all personal belongings.
== END 2020-09-24 14:03 | DRG 857 ==
LOC: ED 08:34 → AC 10:41
PROVIDERS: Internal Medicine; Nurse Practitioner Adult Health; Nurse Practitioner Family; Orthopaedic Surgery Foot and Ankle Surgery; Admitting Provider Internal Medicine; Emergency Provider Emergency Medicine; PCP Student in an Organized Health Care Education/Training Program; Referring Provider Emergency Medicine; Visit Provider Internal Medicine
PROC: 0KBN0ZZ Excision of Right Hip Muscle, Open Approach (ICD-10-PCS; principal; 2020-09-20 15:00)
DX: T81.42XA Infection following a procedure, deep incisional surgical site, initial encounter (principal); L03.115 Cellulitis of right lower limb; I47.1 Supraventricular tachycardia; D62 Acute posthemorrhagic anemia; Z96.641 Presence of right artificial hip joint; B95.62 Methicillin resistant Staphylococcus aureus infection as the cause of diseases classified elsewhere; E11.9 Type 2 diabetes mellitus without complications; F32.9 Major depressive disorder, single episode, unspecified; F41.9 Anxiety disorder, unspecified; K21.9 Gastro-esophageal reflux disease without esophagitis; I10 Essential (primary) hypertension; Z11.59 Encounter for screening for other viral diseases; Z87.891 Personal history of nicotine dependence; Z79.4 Long term (current) use of insulin; Z66 Do not resuscitate
CPT/HCPCS: 36415; 36569; 36592; 71045; 73502; 80048; 80053; 80069; 80202; 81015; 82962; 83036; 83540; 83550; 83605; 83735; 84145; 84484; 85025; 85651; 86140; 87040; 87070; 87075; 87077; 87147; 87186; 87205; 87635; 93005; 93306; 94760; 94762; 97110; 97116; 97162; 97530; 99283; 99284; J0690; J1642; J1644; J2704; J3010; J3370

== ENCOUNTER → 2020-10-12 10:07 | Outpatient (CLI) | payer MEDICARE, SELFPAY ==
[2020-09-20 11:40] VITALS: BMI 30.2
[2020-10-12 11:03] LABS: COVID19 -Nasal RAPID Negative (Negative)
== END ==
PROVIDERS: PCP Student in an Organized Health Care Education/Training Program; Visit Provider Physician Assistant
DX: Z11.59 Encounter for screening for other viral diseases (principal)
CPT/HCPCS: 87635

== ENCOUNTER → 2020-10-15 15:34 | Outpatient (CLI) | payer MEDICARE, SELFPAY ==
[2020-09-20 11:40] VITALS: BMI 30.2
[2020-10-15 16:07] LABS: Reticulocyte Count, Percent 11.4 % (1.06-2.63)
[2020-10-15 16:19] LABS: Hemoglobin 7.1 g/dL (12.0-16.0); Mean Corpuscular HGB Conc 32.8 % (30-36); Mean Corpuscular Hemoglobin 32.7 PG (26-34); Mean Corpuscular Volume 99.5 fL (80-100); Platelet Count 185 X10^3/uL (150-400); Red Blood Cell Count 2.16 X10^6/uL (4.0-5.2); Red Cell Distribution Width 18.7 % (11.6-14.8); White Blood Cell Count 2.8 X10^3/uL (4.5-11.0)
[2020-10-15 16:22] LABS: Add Manual Diff / Slide Review YES; Hematocrit 21.5 % (36-46)
[2020-10-15 16:24] LABS: Erythrocyte Sedimentation Rate > 140 MM/HR (0-20)
[2020-10-15 16:33] LABS: Neutrophils Absolute Manual 868 /uL (3000-5900); Total Cells Counted 100
[2020-10-15 16:35] LABS: Poikilocytosis 1+; Polychromasia 2+
[2020-10-15 16:36] LABS: Anisocytosis 2+
[2020-10-15 16:37] LABS: Smudge Cells 1+
[2020-10-15 16:41] LABS: Alanine Aminotransferase 47 IU/L (<35); Albumin 3.1 g/dL (3.5-5.0); Albumin Globulin Ratio 1.4 (1.0-2.8); Alkaline Phosphatase 158 U/L (38-126); Aspartate Aminotransferase 45 IU/L (14-36); Bilirubin Total 3.7 mg/dL (0.2-1.3); Blood Urea Nitrogen 13 mg/dL (7-17); Calcium 8.5 mg/dL (8.4-10.2); Carbon Dioxide 29 mmol/L (22-32); Chloride 104 mmol/L (98-107); Estimated Glomerular Filt Rate > 60.0 mL/min (>60); Globulin 2.2 g/dL (1.7-4.1); Glucose 178 mg/dL (80-110); HEMOLYSIS < 15 (0-50); Lactate Dehydrogenase 1578 U/L (313-618); Magnesium 1.3 mg/dL (1.6-2.3); Potassium 3.9 mmol/L (3.4-5.1); Sodium 135 mmol/L (137-145); Total Protein 5.3 g/dL (6.3-8.2)
[2020-10-15 17:09] LABS: Carcinoembryonic Antigen 0.6 ng/mL (0.1-3.0)
[2020-10-15 17:13] LABS: Ferritin 200 ng/mL (11-264)
[2020-10-15 17:44] LABS: Folate 16.1 ng/mL (2.76-20.0); Vitamin B12 491 pg/mL (239-931)
[2020-10-16 03:43] LABS: HBsAg Screen Negative (Negative); Hepatitis A Antibody IgM Negative (Negative); Hepatitis B Core Antibody IgM Negative (Negative); Hepatitis C Antibody <0.1 s/co ratio (0.0-0.9)
[2020-10-16 06:33] LABS: Haptoglobin < 10 mg/dL (41-333)
== END ==
PROVIDERS: PCP Student in an Organized Health Care Education/Training Program; Referring Provider Student in an Organized Health Care Education/Training Program; Visit Provider Student in an Organized Health Care Education/Training Program
DX: C85.90 Non-Hodgkin lymphoma, unspecified, unspecified site (principal); D64.9 Anemia, unspecified; R17 Unspecified jaundice
CPT/HCPCS: 36415; 80053; 80074; 82378; 82607; 82728; 82746; 83010; 83615; 83735; 85007; 85025; 85045; 85651; 86140; 86880

== ENCOUNTER 2020-10-15 18:09 | Emergency (ER) | payer MEDICARE, SELFPAY ==
[2020-09-20 11:40] VITALS: BMI 30.2
[2020-10-15 18:23] VITALS: BP 118/55; PULSE 109; RESP 18; TEMP 35.8; O2SAT 98
--- NOTE | 2020-10-15 18:43 | ED.RECABL ---
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 She has a rather busy recent medical history which started in July while she still lived in [place]. She fell and had a hip fracture and during the admission she developed anemia and had a transfusion reaction. She had a prolonged stay at a longterm and was brought up here to be closer to her daughter. She subsequently developed an infection of the surgical site and was taken to the OR here for drainage of an abscess on 09/20. She was discharged to a local SNF and just was discharged home over the weekend. She has been jaundiced at least since then. She has no fever, no CP, SOB, cough or abdominal pain. She occasionally feels a little dizzy when standing but largely is asymptomatic. Her PCP (Dr. Alva) ordered labs which noted elevations in a pattern that would raise the suspicion of hemolytic anemia. Initial visit (ago): hour(s) Returns today for: called because of abnormal lab/test Symptoms since prior visit: no new symptoms Associated symptoms: other Related Data Home Medications Medication Instructions Recorded Confirmed diltiazem HCl 240 mg 240 mg PO DAILY 09/16/20 10/15/20 capsule,extended release 24 hr escitalopram oxalate 10 mg tablet 10 mg PO DAILY 09/16/20 10/15/20 glimepiride 2 mg tablet 2 mg PO DAILY 09/16/20 10/15/20 insulin lispro 100 unit/mL 10 unit SUBCUT TID 09/16/20 10/15/20 subcutaneous pen losartan 50 mg tablet 50 mg PO DAILY 09/16/20 10/15/20 omeprazole 20 mg PO DAILY 09/21/20 10/15/20 Previous Rx's Medication Instructions Recorded insulin glargine U-300 conc 300 22 unit SUBCUT DAILY #6 ml 09/16/20 unit/mL (3 mL) subcutaneous pen acetaminophen 975 mg PO TID #30 tab 09/24/20 alprazolam 0.25 mg PO BEDTIME PRN #10 tab 09/24/20 docusate sodium [DOK] 100 mg PO BID #60 cap 09/24/20 ferrous sulfate 325 mg PO DAILY #30 tab 09/24/20 magnesium chloride [Slow-Mag] 71.5 mg PO DAILY #5 tab 09/24/20 metoprolol succinate 50 mg PO BID #20 tab 09/24/20 tramadol 50 mg PO TID PRN #10 tab 09/24/20 prednisone 40 mg PO DAILY 6 Days tab 10/15/20 Allergies Allergy/AdvReac Type Severity Reaction Status Date / Time No Known Drug Allergies Allergy Unverified 10/15/20 14:58 Review of Systems Constitutional Constitutional: Denies chills, Denies fatigue, Denies fever(s), Denies frequent falls, Denies lethargy and Denies weakness Eyes Eyes: Denies change in vision, Denies eye discharge, Denies irritation and Denies loss of vision ENT Ears, Nose, Mouth, and Throat: Denies change in voice, Denies dizziness, Denies neck pain, Denies sore throat and Denies throat swelling Cardiovascular Cardiovascular: Denies chest pain, Denies irregular heart rhythm, Denies lightheadedness, Denies palpitations, Denies dyspnea, Denies dyspnea on exertion and Denies orthopnea Respiratory Respiratory: Denies cough, Denies dyspnea, Denies dyspnea on exertion and Denies wheezing Gastrointestinal Gastrointestinal: Denies abdominal pain, Denies change in bowel habits, Denies diarrhea, Denies nausea and Denies vomiting Musculoskeletal Musculoskeletal: Denies neck pain and Denies numbness Integumentary/Breasts Skin/Breast: Reports change in pigmentation, Denies pruritus, Denies erythema, Denies rash, Denies wounds and Reports jaundice Neurologic Neurologic: Denies behavioral changes, Denies confusion, Denies dizziness, Denies frequent falls, Denies loss of vision, Denies numbness and Denies weakness Psychiatric Psychiatric: Denies anxiety, Denies behavioral changes, Denies confusion, Denies depression, Denies homicidal ideation and Denies suicidal ideation Endocrine Endocrine: Denies fatigue, Denies flushing and Denies palpitations Hematologic/Lymphatic Hematologic/Lymphatic: Denies easy bruising Allergic/Immunologic Allergic/Immunologic: Denies urticaria, Denies throat swelling and Denies wheezing Patient History Medical History (Updated 10/15/20 @ 21:44 by Serg Toledo DO) Abnormal chest x-ray Allergies Anemia Asthma Atrial fibrillation 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) Cardiac arrhythmia (~1960) Carpal tunnel syndrome Cervical spine disease Chicken pox Chronic back pain COPD (chronic obstructive pulmonary disease) Femur fracture, right GERD (gastroesophageal reflux disease) Hearing loss History of urinary incontinence (~2018) Hypertension Lumbar radiculopathy Measles Non Hodgkin's lymphoma (~2018) Osteoarthritis Osteoporosis Peripheral neuropathy Rubella [facility] fever Scoliosis Spinal stenosis Type 2 diabetes mellitus (~1999) Vitamin D insufficiency Surgical History (Updated 09/28/20 @ 20:35 by Dolly Lake) Anesthesia History of carpal tunnel release History of hemiarthroplasty of hip (~09/2020) History of tonsillectomy Family History (Updated 09/28/20 @ 20:38 by Dolly Lake) Father Stroke Mother Dermatomyositis Cancer Diabetes mellitus Hypertension Brother Cancer Diabetes mellitus Hypertension Mental health problem Sister Cancer Diabetes mellitus Hypertension History of heart disease Social History household members: none Smoking Status: Former smoker alcohol intake: never Smoking Status: Former smoker Substance Use Type: does not use Exam Narrative Exam Narrative: GENERAL: [85] year old patient appears stated age. Well-nourished, well-developed patient, in mild distress. HEAD: Atraumatic. Normocephalic. EYES: Pupils equal round and reactive. Extraocular motions intact. No scleral icterus. No injection or drainage. ENT: Nose without bleeding, purulent drainage. Throat without erythema, tonsillar hypertrophy or exudate. Airway patent. NECK: Trachea midline. Non tender CARDIOVASCULAR: Regular rate and rhythm without murmurs, gallops, or rubs. RESPIRATORY: Clear to auscultation. Breath sounds equal bilaterally. No wheezes, rales, or rhonchi. GASTROINTESTINAL: Abdomen soft, non-tender, nondistended. EXTREMITIES: No edema or joint tenderness. BACK: Nontender without deformity or crepitance. No flank tenderness. NEURO: AOx3. SKIN: Jaundice, but otherwise no rash or erythema of visible areas Initial Vital Signs Initial Vital Signs: Vital Signs Temperature 96.5 F L 10/15/20 18:23 Pulse Rate 109 H 10/15/20 18:23 Respiratory Rate 18 10/15/20 18:23 Blood Pressure 118/55 L 10/15/20 18:23 Pulse Oximetry 98 10/15/20 18:23 Course Orders Ordered: ED Orders 10/15/20 19:00 Bilirubin Direct Stat Bilirubin Total Stat Hemoglobin and Hematocrit Stat Partial Thromboplastin Time Stat Prothrombin Time INR Stat Type and Screen Stat 10/15/20 20:07 US abdomen limited Stat Discontinued Medications Magnesium Sulfate (Magnesium Sulfate) 2 gm in 50 mls @ 25 mls/hr IV NOW ONE Stop: 10/15/20 22:39 Last Infusion: 10/15/20 22:12 Dose: 0 mls/hr Documented by: JOSSELIN Cosigned by: TORRES Admin: 10/15/20 20:49 Dose: 25 mls/hr Documented by: JOSSELIN Cosigned by: TORRES Prednisone (Prednisone 20 Mg Tablet) 40 mg PO NOW ONE Stop: 10/15/20 21:41 Last Admin: 10/15/20 21:48 Dose: 40 mg Documented by: CHARITY Consultations Consultation #1: 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 Shepherd) and upon discussing the case he shares the opinion that she is safe and appropriate for discharge but will need close follow up with his [place] [facility]. He has taken down her contact info to pass on to his [place] partners and requests that facesheet be faxed to the office. Vital Signs Vital signs: Vital Signs - 8 hr 10/15/20 18:23 10/15/20 20:55 10/15/20 20:57 Temperature 96.5 F L Pulse Rate 109 H 105 H 105 H Respiratory Rate 18 22 Blood Pressure 118/55 L 112/57 L Pulse Oximetry 98 98 10/15/20 21:00 10/15/20 21:30 Temperature Pulse Rate 104 H 104 H Respiratory Rate 20 24 Blood Pressure 117/59 L 118/59 L Pulse Oximetry 98 97 MDM - Recheck/Abnormal Lab/Rx Lab Data Result diagrams: 10/15/20 19:00 Labs: Lab Results 10/15/20 10/15/20 10/15/20 Range/Units 19:00 19:00 19:00 Hgb 7.7 L (12.0-16.0) g/dL Hct 23.0 L (36-46) % PT (10.1-12.7) SECONDS INR (0.9-1.3) APTT (26.4-36.2) SECONDS Total Bilirubin 4.4 H (0.2-1.3) mg/dL Direct Bilirubin 0.6 H (0.0-0.4) mg/dL Unconjugated Bilirubin 3.8 H (0.0-1.1) mg/dL Blood Type O Positive Antibody Screen Positive 10/15/20 Range/Units 19:00 Hgb (12.0-16.0) g/dL Hct (36-46) % PT 12.3 (10.1-12.7) SECONDS INR 1.1 (0.9-1.3) APTT 29 (26.4-36.2) SECONDS Total Bilirubin (0.2-1.3) mg/dL Direct Bilirubin (0.0-0.4) mg/dL Unconjugated Bilirubin (0.0-1.1) mg/dL Blood Type Antibody Screen MDM Narrative Medical decision making narrative: Patient with a largely asymptomatic recurrence of hemolytic anemia. She denies dizziness, weakness, SOB. Her repeat H/H is improved to 7.7. She has significant antibodies on her Type and screen and with her prior history of transfusion reaction she will not be appropriate for transfusion tonight. Calls placed to PCP and oncology to keep them in the loop and develop a plan moving forward. All parties are on the same page. Patient given return precautions and has had her questions answered to her apparent satisfaction. Discharge Plan Departure Patient Disposition: Home Clinical Impression: Hemolytic anemia Qualifiers: Hemolytic anemia type: unspecified autoimmune Qualified Code(s): D59.10 - Autoimmune hemolytic anemia, unspecified Instructions: Autoimmune Hemolytic Anemia Activity Restrictions/Additional Instructions: *You have been diagnosed with [hemolytic anemia] *What to do: *Take medications as directed: I have spoken with Dr. Eng is partner as well as Hematology. They recommend discharge and close follow-up with the addition of prednisone 40 mg daily x7 days *Follow up with your primary care provider in 2-3 days, call for an appointment. Let them know you were seen in the Emergency Department and that we ask that you be seen in follow up. Your sugars will likely be a bit higher while on prednisone and it will be important to follow this. The Hematology/Oncology office wants to see you soon. They took down your phone number and we faxed them a request. *Return to ER if you should have any new, worsening or concerning symptoms Prescriptions: New prednisone 20 mg tablet 40 mg PO DAILY 6 Days RF: 0 No Action escitalopram oxalate 10 mg tablet 10 mg PO DAILY RF: 0 glimepiride 2 mg tablet 2 mg PO DAILY RF: 0 losartan 50 mg tablet 50 mg PO DAILY RF: 0 diltiazem HCl [Cartia XT] 240 mg capsule,extended release 24hr 240 mg PO DAILY RF: 0 Toujeo Max U-300 SoloStar 300 unit/mL (3 mL) insulin pen 22 unit SUBCUT DAILY Qty: 6 RF: 11 insulin lispro 100 unit/mL insulin pen 10 unit SUBCUT TID RF: 0 omeprazole 20 mg Capsule,Delayed Release(Dr/Ec) 20 mg PO DAILY RF: 0 acetaminophen 325 mg Tablet 975 mg PO TID Qty: 30 RF: 0 metoprolol succinate 50 mg Tablet Extended Release 24 Hr 50 mg PO BID Qty: 20 RF: 0 ferrous sulfate 325 mg (65 mg iron) Tablet 325 mg PO DAILY Qty: 30 RF: 0 docusate sodium [DOK] 100 mg Capsule 100 mg PO BID Qty: 60 RF: 0 Slow-Mag 71.5 mg Tablet,Delayed Release (Dr/Ec) 71.5 mg PO DAILY Qty: 5 RF: 0 tramadol 50 mg tablet 50 mg PO TID PRN (Reason: Pain (Scale Score 4-6)) Qty: 10 RF: 0 alprazolam 0.25 mg tablet 0.25 mg PO BEDTIME PRN (Reason: Sleep) Qty: 10 RF: 0 Referrals: Ulises Alva MD [Primary Care Provider] - Mahi Walker MD [Physician] -
[2020-10-15 19:10] LABS: Hemoglobin 7.7 g/dL (12.0-16.0)
[2020-10-15 19:23] LABS: INR 1.1 (0.9-1.3); Prothrombin Time 12.3 SECONDS (10.1-12.7)
[2020-10-15 19:26] LABS: Bilirubin Direct 0.6 mg/dL (0.0-0.4); Bilirubin Total 4.4 mg/dL (0.2-1.3); Bilirubin Unconjugated 3.8 mg/dL (0.0-1.1); PTT Partial Thromboplastin Tim 29 SECONDS (26.4-36.2)
--- NOTE | 2020-10-15 20:07 | DI.US.S_ITS ---
PROCEDURE: US ABDOMEN LIMITED INDICATIONS: ELEVATED BILIRUBIN, LFTS; JAUNDICE TECHNIQUE: Real-time scanning was performed of the abdominal and retroperitoneal organs, with image documentation. COMPARISON: None. FINDINGS: Liver: Liver is normal in size and homogeneous in echotexture. Gallbladder: The gallbladder contains multiple gallstones with the largest measuring 1.1 cm in size. No gallbladder wall thickening. No pericholecystic fluid. Negative sonographic Winter's. Biliary ducts: Intrahepatic bile ducts are non-dilated. Extrahepatic bile duct caliber measures 6 mm. Normal is 6-7 mm or less in diameter, or 10 mm or less post-cholecystectomy. Pancreas: Visualized portions of the pancreas are sonographically normal. Miscellaneous: No free abdominal fluid visualized in the Plasencia's pouch. IMPRESSION: 1. Cholelithiasis without sonographic evidence for acute cholecystitis or biliary obstruction. 2. Normal sonographic evaluation of the pancreas. Dictated by: Edgar Fleming M.D. on 10/15/2020 at 20:52 Approved by: Edgar Fleming M.D. on 10/15/2020 at 20:54
--- NOTE | 2020-10-15 20:45 | ED.RECABL ---
HPI - Recheck/Abnormal Lab/Rx General Chief Complaint: Recheck/Abnormal Lab/Rx Stated Complaint: abnormal lab results, sent by doc Time Seen by Provider: 10/15/20 18:43 Source: patient and family Mode of arrival: Ambulatory Limitations: no limitations History of Present Illness Returns today for: called because of abnormal lab/test Associated symptoms: other Related Data Home Medications Medication Instructions Recorded Confirmed diltiazem HCl 240 mg 240 mg PO DAILY 09/16/20 10/15/20 capsule,extended release 24 hr escitalopram oxalate 10 mg tablet 10 mg PO DAILY 09/16/20 10/15/20 glimepiride 2 mg tablet 2 mg PO DAILY 09/16/20 10/15/20 insulin lispro 100 unit/mL 10 unit SUBCUT TID 09/16/20 10/15/20 subcutaneous pen losartan 50 mg tablet 50 mg PO DAILY 09/16/20 10/15/20 omeprazole 20 mg PO DAILY 09/21/20 10/15/20 Previous Rx's Medication Instructions Recorded insulin glargine U-300 conc 300 22 unit SUBCUT DAILY #6 ml 09/16/20 unit/mL (3 mL) subcutaneous pen acetaminophen 975 mg PO TID #30 tab 09/24/20 alprazolam 0.25 mg PO BEDTIME PRN #10 tab 09/24/20 docusate sodium [DOK] 100 mg PO BID #60 cap 09/24/20 ferrous sulfate 325 mg PO DAILY #30 tab 09/24/20 magnesium chloride [Slow-Mag] 71.5 mg PO DAILY #5 tab 09/24/20 metoprolol succinate 50 mg PO BID #20 tab 09/24/20 tramadol 50 mg PO TID PRN #10 tab 09/24/20 prednisone 40 mg PO DAILY 6 Days tab 10/15/20 Allergies Allergy/AdvReac Type Severity Reaction Status Date / Time No Known Drug Allergies Allergy Unverified 10/15/20 14:58 Review of Systems Constitutional Constitutional: Denies frequent falls and Denies weakness Eyes Eyes: Denies loss of vision ENT Ears, Nose, Mouth, and Throat: Denies dizziness Musculoskeletal Musculoskeletal: Denies numbness Neurologic Neurologic: Denies behavioral changes, Denies confusion, Denies dizziness, Denies frequent falls, Denies loss of vision, Denies numbness and Denies weakness Psychiatric Psychiatric: Denies behavioral changes and Denies confusion Patient History Medical History (Updated 10/15/20 @ 21:44 by Serg Toledo DO) Abnormal chest x-ray Allergies Anemia Asthma Atrial fibrillation 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) Cardiac arrhythmia (~1959) Carpal tunnel syndrome Cervical spine disease Chicken pox Chronic back pain COPD (chronic obstructive pulmonary disease) Femur fracture, right GERD (gastroesophageal reflux disease) Hearing loss History of urinary incontinence (~2018) Hypertension Lumbar radiculopathy Measles Non Hodgkin's lymphoma (~2018) Osteoarthritis Osteoporosis Peripheral neuropathy Rubella [facility] fever Scoliosis Spinal stenosis Type 2 diabetes mellitus (~1999) Vitamin D insufficiency Surgical History (Updated 09/28/20 @ 20:35 by Dolly Lake) Anesthesia History of carpal tunnel release History of hemiarthroplasty of hip (~09/2020) History of tonsillectomy Family History (Updated 09/28/20 @ 20:38 by Dolly Lake) Father Stroke Mother Dermatomyositis Cancer Diabetes mellitus Hypertension Brother Cancer Diabetes mellitus Hypertension Mental health problem Sister Cancer Diabetes mellitus Hypertension History of heart disease Social History household members: none Smoking Status: Former smoker alcohol intake: never Smoking Status: Former smoker Substance Use Type: does not use Exam Initial Vital Signs Initial Vital Signs: Vital Signs Temperature 96.5 F L 10/15/20 18:23 Pulse Rate 109 H 10/15/20 18:23 Respiratory Rate 18 10/15/20 18:23 Blood Pressure 118/55 L 10/15/20 18:23 Pulse Oximetry 98 10/15/20 18:23 Course Orders Ordered: ED Orders 10/15/20 19:00 Bilirubin Direct Stat Bilirubin Total Stat Hemoglobin and Hematocrit Stat Partial Thromboplastin Time Stat Prothrombin Time INR Stat Type and Screen Stat 10/15/20 20:07 US abdomen limited Stat Discontinued Medications Magnesium Sulfate (Magnesium Sulfate) 2 gm in 50 mls @ 25 mls/hr IV NOW ONE Stop: 10/15/20 22:39 Last Infusion: 10/15/20 22:12 Dose: 0 mls/hr Documented by: JOSSELIN Cosigned by: TORRES Admin: 10/15/20 20:49 Dose: 25 mls/hr Documented by: JOSSELIN Cosigned by: TORRES Prednisone (Prednisone 20 Mg Tablet) 40 mg PO NOW ONE Stop: 10/15/20 21:41 Last Admin: 10/15/20 21:48 Dose: 40 mg Documented by: CHARITY Vital Signs Vital signs: Vital Signs - 8 hr 10/15/20 18:23 10/15/20 20:55 10/15/20 20:57 Temperature 96.5 F L Pulse Rate 109 H 105 H 105 H Respiratory Rate 18 22 Blood Pressure 118/55 L 112/57 L Pulse Oximetry 98 98 10/15/20 21:00 10/15/20 21:30 Temperature Pulse Rate 104 H 104 H Respiratory Rate 20 24 Blood Pressure 117/59 L 118/59 L Pulse Oximetry 98 97 MDM - Recheck/Abnormal Lab/Rx Lab Data Result diagrams: 10/15/20 19:00 Labs: Lab Results 10/15/20 10/15/20 10/15/20 Range/Units 19:00 19:00 19:00 Hgb 7.7 L (12.0-16.0) g/dL Hct 23.0 L (36-46) % PT (10.1-12.7) SECONDS INR (0.9-1.3) APTT (26.4-36.2) SECONDS Total Bilirubin 4.4 H (0.2-1.3) mg/dL Direct Bilirubin 0.6 H (0.0-0.4) mg/dL Unconjugated Bilirubin 3.8 H (0.0-1.1) mg/dL Blood Type O Positive Antibody Screen Positive 10/15/20 Range/Units 19:00 Hgb (12.0-16.0) g/dL Hct (36-46) % PT 12.3 (10.1-12.7) SECONDS INR 1.1 (0.9-1.3) APTT 29 (26.4-36.2) SECONDS Total Bilirubin (0.2-1.3) mg/dL Direct Bilirubin (0.0-0.4) mg/dL Unconjugated Bilirubin (0.0-1.1) mg/dL Blood Type Antibody Screen Discharge Plan Departure Patient Disposition: Home Clinical Impression: Hemolytic anemia Qualifiers: Hemolytic anemia type: unspecified autoimmune Qualified Code(s): D59.10 - Autoimmune hemolytic anemia, unspecified Instructions: Autoimmune Hemolytic Anemia Activity Restrictions/Additional Instructions: *You have been diagnosed with [hemolytic anemia] *What to do: *Take medications as directed: I have spoken with Dr. Eng is partner as well as Hematology. They recommend discharge and close follow-up with the addition of prednisone 40 mg daily x7 days *Follow up with your primary care provider in 2-3 days, call for an appointment. Let them know you were seen in the Emergency Department and that we ask that you be seen in follow up. Your sugars will likely be a bit higher while on prednisone and it will be important to follow this. The Hematology/Oncology office wants to see you soon. They took down your phone number and we faxed them a request. *Return to ER if you should have any new, worsening or concerning symptoms Prescriptions: New prednisone 20 mg tablet 40 mg PO DAILY 6 Days RF: 0 No Action escitalopram oxalate 10 mg tablet 10 mg PO DAILY RF: 0 glimepiride 2 mg tablet 2 mg PO DAILY RF: 0 losartan 50 mg tablet 50 mg PO DAILY RF: 0 diltiazem HCl [Cartia XT] 240 mg capsule,extended release 24hr 240 mg PO DAILY RF: 0 Toujeo Max U-300 SoloStar 300 unit/mL (3 mL) insulin pen 22 unit SUBCUT DAILY Qty: 6 RF: 11 insulin lispro 100 unit/mL insulin pen 10 unit SUBCUT TID RF: 0 omeprazole 20 mg Capsule,Delayed Release(Dr/Ec) 20 mg PO DAILY RF: 0 acetaminophen 325 mg Tablet 975 mg PO TID Qty: 30 RF: 0 metoprolol succinate 50 mg Tablet Extended Release 24 Hr 50 mg PO BID Qty: 20 RF: 0 ferrous sulfate 325 mg (65 mg iron) Tablet 325 mg PO DAILY Qty: 30 RF: 0 docusate sodium [DOK] 100 mg Capsule 100 mg PO BID Qty: 60 RF: 0 Slow-Mag 71.5 mg Tablet,Delayed Release (Dr/Ec) 71.5 mg PO DAILY Qty: 5 RF: 0 tramadol 50 mg tablet 50 mg PO TID PRN (Reason: Pain (Scale Score 4-6)) Qty: 10 RF: 0 alprazolam 0.25 mg tablet 0.25 mg PO BEDTIME PRN (Reason: Sleep) Qty: 10 RF: 0 Referrals: Ulises Alva MD [Primary Care Provider] - Mahi Walker MD [Physician] -
[2020-10-15] MEDS: MAGNESIUM SULFATE 2 GM/50 ML PIGGYBACK IV (20:49)
[2020-10-15 20:55] VITALS: PULSE 105
[2020-10-15 20:57] VITALS: BP 112/57; PULSE 105; RESP 22; O2SAT 98
[2020-10-15 21:00] VITALS: BP 117/59; PULSE 104; RESP 20; O2SAT 98
[2020-10-15 21:30] VITALS: BP 118/59; PULSE 104; RESP 24; O2SAT 97
[2020-10-15] MEDS: predniSONE 20 MG TABLET 40 MG PO (21:48)
--- NOTE | 2020-10-16 07:07 | PC.NURSE ---
Pt had forgotten Prednisone script. Called script to [facility] per daughter's request.
--- NOTE | 2020-10-19 11:42 | ONC.MSW ---
Description: New Referral from ED Reason for Referral: hemolytic anemia (hx) Activity: Received a partial referral from ED, no prior auth done. Contacted Dr. Toledo to let him know that our clinic requires a referral and prior authorization of referral. Shared the process for future referrals. Contacted Dr. Alva, pt's PCP, requested a referral and prior auth, and that this should be indicated in the [facility] of [facility], prior to being able to schedule patient.
== END 2020-10-15 22:16 | disposition home or self-care (01) ==
PROVIDERS: Emergency Provider Emergency Medicine; PCP Student in an Organized Health Care Education/Training Program
DX: D59.10 Autoimmune hemolytic anemia, unspecified (principal); R17 Unspecified jaundice; E11.9 Type 2 diabetes mellitus without complications; Z79.4 Long term (current) use of insulin; I48.91 Unspecified atrial fibrillation; I10 Essential (primary) hypertension; C85.90 Non-Hodgkin lymphoma, unspecified, unspecified site; D64.9 Anemia, unspecified
CPT/HCPCS: 36415; 76705; 80053; 80074; 82247; 82248; 82378; 82607; 82728; 82746; 83010; 83615; 83735; 85007; 85014; 85018; 85025; 85045; 85610; 85651; 85730; 86140; 86850; 86860; 86870; 86880; 86900; 86901; 86905; 86971; 86978; 86999; 96360; 99284

== ENCOUNTER → 2020-10-26 09:29 | Outpatient (CLI) | payer MEDICARE, SELFPAY ==
[2020-09-20 11:40] VITALS: BMI 30.2
--- NOTE | 2020-10-26 09:32 | DI.US.S_ITS ---
PROCEDURE: US PERIPH VENOUS LOW EXTREM RT INDICATIONS: UNILATERAL LEG EDEMA TECHNIQUE: Real-time imaging, as well as color and pulse Doppler interrogation, were performed of the lower extremity deep veins from the inguinal ligament to the popliteal fossa. COMPARISON: None. FINDINGS: The common femoral, femoral and popliteal veins are normally compressible, and free of intraluminal thrombus. Color and pulse Doppler demonstrate normal phasic intraluminal flow. There is normal augmentation response to distal compression maneuver. Moderate soft tissue edema of the ankle and calf can be seen. IMPRESSION: Negative for deep venous thrombosis. Dictated by: Freeman Andre M.D. on 10/26/2020 at 9:26 Approved by: Freeman Andre M.D. on 10/26/2020 at 9:26
== END ==
PROVIDERS: PCP Student in an Organized Health Care Education/Training Program; Referring Provider Student in an Organized Health Care Education/Training Program; Visit Provider Student in an Organized Health Care Education/Training Program
DX: R60.0 Localized edema (principal)
CPT/HCPCS: 93971

== ENCOUNTER → 2020-11-12 13:21 | Outpatient (CLI) | payer MEDICARE, SELFPAY ==
[2020-10-27 14:51] VITALS: BMI 30.2
--- NOTE | 2020-11-12 13:24 | DI.RAD.S_ITS ---
PROCEDURE: XR LUMBAR SPINE 2-3V INDICATIONS: lumbar pain TECHNIQUE: 3 views of the lumbar spine were acquired. COMPARISON: None. FINDINGS: Bones: Scoliosis and extensive discogenic changes. Age-indeterminate multiple compression fractures seen in the lumbar spine involving L4, L3, L2. Grade 1 anterolisthesis of L4 on L5. Multilevel degenerative endplate sclerosis and spurring. Diffuse facet arthropathy. Soft tissues: Scattered vascular calcifications seen in the aorta. IMPRESSION: Age-indeterminate mild L2, L3 and L4 compression fractures Advanced lumbar spondylosis and facet arthropathy Scoliosis Dictated by: Nathan Bridges M.D. on 11/12/2020 at 13:49 Approved by: Nathan Bridges M.D. on 11/12/2020 at 13:52
--- NOTE | 2020-11-12 13:24 | DI.RAD.S_ITS ---
PROCEDURE: XR CHEST 2V INDICATIONS: Chest pain TECHNIQUE: 2 views of the chest were acquired. COMPARISON: [facility], , XR CHEST 1V, 09/21/2020, 9:03. FINDINGS: Surgical changes and devices: None. Lungs and pleura: Scattered subsegmental scarring and/or atelectasis. No acute consolidation. No pleural effusions or pneumothorax. Mediastinum: Mediastinal contours are normal. Heart size is normal. Bones and chest wall: Scoliosis and discogenic changes. IMPRESSION: No acute disease. Dictated by: Nathan Bridges M.D. on 11/12/2020 at 13:48 Approved by: Nathan Bridges M.D. on 11/12/2020 at 13:49
== END ==
PROVIDERS: PCP Student in an Organized Health Care Education/Training Program; Referring Provider Student in an Organized Health Care Education/Training Program; Visit Provider Student in an Organized Health Care Education/Training Program
DX: M47.26 Other spondylosis with radiculopathy, lumbar region (principal); R07.9 Chest pain, unspecified; M48.56XA Collapsed vertebra, not elsewhere classified, lumbar region, initial encounter for fracture; M25.519 Pain in unspecified shoulder; M41.9 Scoliosis, unspecified
CPT/HCPCS: 71046; 72100

== ENCOUNTER → 2020-12-25 18:40 | Outpatient (CLI) | payer MEDICARE, SELFPAY ==
[2020-10-27 14:51] VITALS: BMI 30.2
--- NOTE | 2020-12-25 18:43 | DI.MRI.S_ITS ---
PROCEDURE: MR LUMBAR SPINE WO CON INDICATIONS: L2-L3 L4 fracture TECHNIQUE: Noncontrast sagittal T1 spin echo and T2 fast echo, coronal T2, sagittal STIR, axial T1 and T2 fast spin echo through the lumbar spine. COMPARISON: [facility], CR, XR LUMBAR SPINE 2-3V, 11/12/2020, 13:28. FINDINGS: Image quality: Excellent. Alignment and Curvature: 5 lumbar type vertebral bodies are present by plain film. There is moderate to severe rightward curvature of the mid/upper lumbar spine. There is mild, grade 1 retrolisthesis of L2 on L3 and L5 on S1. Mild grade 1 anterolisthesis of L4 on L5. Bone Marrow: Marrow is of normal overall signal. No acute vertebral body compression fractures. There is moderate chronic appearing wedging of T12. Mild chronic appearing wedging of L2, L3, and L4. Spinal Cord: Conus medullaris terminates at the upper L2 level. Visualized cord demonstrates normal signal and size. Paraspinous Soft Tissues: No paravertebral masses. T12-L1: Moderate to severe disc height loss and desiccation. Mild diffuse disc bulge with superimposed broad-based right posterolateral protrusion. Mild facet and ligamentum flavum hypertrophy. Mild canal stenosis. Mild left and moderate right foraminal stenosis. L1-L2: Moderate disc desiccation. Mild diffuse disc bulge. Mild facet and ligamentum flavum hypertrophy. Mild canal stenosis. Mild bilateral foraminal stenosis. L2-L3: Moderate disc desiccation. Moderate diffuse disc bulge with superimposed broad-based right posterolateral protrusion. Mild facet and ligamentum flavum hypertrophy. Mild epidural lipomatosis. Moderate to severe canal stenosis. Mild left and moderate right foraminal stenosis. L3-L4: Moderate disc desiccation. Mild disc height loss. Mild diffuse disc bulge with superimposed broad-based left posterolateral protrusion. Moderate facet and ligamentum flavum hypertrophy. Mild epidural lipomatosis. Severe canal stenosis. Mild right and moderate left foraminal stenosis. L4-L5: Moderate disc desiccation. Mild disc height loss. Moderate diffuse disc bulge. Moderate facet hypertrophy bilaterally. Moderate to severe canal stenosis. Moderate bilateral foraminal stenosis. L5-S1: Severe disc height loss and desiccation. Mild diffuse disc bulge. Mild facet and ligamentum flavum hypertrophy. Mild canal stenosis. Moderate right and mild left foraminal stenosis. IMPRESSION: 1. Multilevel degenerative disc and facet disease, as well as ligamentum flavum hypertrophy and epidural lipomatosis. 2. Multilevel canal stenoses, worst at L3-L4, where there is severe canal stenosis. Moderate to severe canal stenosis at L2-L3 and L4-L5 are present. 3. Multilevel foraminal stenoses, worst at L2-L3, L3-L4, L4-L5, and L5-S1, where there are moderate foraminal stenosis as described above. 4. Multilevel chronic thoracolumbar compression fractures. Dictated by: Daryl Thomas M.D. on 12/28/2020 at 9:09 Approved by: Daryl Thomas M.D. on 12/28/2020 at 9:14
== END ==
PROVIDERS: PCP Student in an Organized Health Care Education/Training Program; Referring Provider Physical Medicine & Rehabilitation; Visit Provider Physical Medicine & Rehabilitation
DX: S32.030A Wedge compression fracture of third lumbar vertebra, initial encounter for closed fracture (principal); M51.16 Intervertebral disc disorders with radiculopathy, lumbar region; M48.061 Spinal stenosis, lumbar region without neurogenic claudication; M48.07 Spinal stenosis, lumbosacral region; M81.0 Age-related osteoporosis without current pathological fracture
CPT/HCPCS: 72148

== ENCOUNTER → 2021-01-25 14:49 | Outpatient (CLI) | payer MEDICARE, SELFPAY ==
[2021-01-20 11:46] VITALS: BMI 30.2
--- NOTE | 2021-02-13 11:14 | PM.CARDMON.1 ---
Co Teacher Report Referral & Results Date Patient Seen: 01/25/21 Requesting provider: Ulises Alva Indication: Dizziness Duration of monitoring (days): 5 Diary information: There were 4 patient triggered events and 3 patient diary entries Patient triggered events were associated with (within 45 seconds) sinus rhythm, PACs, junctional rhythm, SVT, and pauses Patient diary event was associated with sinus rhythm only Data: Minimum heart rate identified was 31 beats per minute at 15:15 on 01/26/2021 Maximum sinus heart rate was 97 beats per minute at 11:42 on 01/28/2021 Maximum overall heart rate was 152 beats per minute at 05:00 on 01/28/2021 during a 6 beat run of SVT Less than 1% of identified beats were ventricular or supraventricular ectopic in origin, which would classify them as rare. Patient had 2 pauses of 3 seconds or longer the longest lasting 4.5 seconds on 01/26/2021 at 14:20 and appears to be correlated with patient triggered event, there was another pause of 4.4 seconds in duration on 01/26/2021 at 13:32 not associated with patient event There were 325 runs of SVT the fastest being the 6 beat run as above, the longest lasting for hours and 53 minutes at a rate of 98 beats per minute which suggests more of an atrial tachycardia rather than true SVT, although difficult to ascertain on tracings Impression: 5+ day cardiac catheterization technician showing pauses of 4+ seconds on 2 occasions, rare runs of SVT, although more likely atrial tachycardia, extended in duration at times up to 4+ hours. Overall patient was somewhat bradycardic as well. Clinical correlation suggested
== END ==
PROVIDERS: PCP Student in an Organized Health Care Education/Training Program; Referring Provider Student in an Organized Health Care Education/Training Program; Visit Provider Student in an Organized Health Care Education/Training Program
DX: R42 Dizziness and giddiness (principal); R55 Syncope and collapse
CPT/HCPCS: 93242; 93244

== ENCOUNTER → 2021-02-02 13:17 | Outpatient (CLI) | payer MEDICARE, SELFPAY ==
[2021-01-20 11:46] VITALS: BMI 30.2
[2021-02-02 15:14] LABS: COVID19 -Nasal RAPID Negative (Negative)
== END ==
PROVIDERS: PCP Student in an Organized Health Care Education/Training Program; Visit Provider Physical Medicine & Rehabilitation
DX: Z20.822 Contact with and (suspected) exposure to COVID-19 (principal)
CPT/HCPCS: 87635

== ENCOUNTER 2021-02-04 10:37 | Outpatient (CLI) | payer MEDICARE, SELFPAY ==
[2021-01-20 11:46] VITALS: BMI 30.2
[2021-02-04] VITALS (10 sets, daily range): BP systolic 107–163; BP diastolic 51–82; PULSE 93–104; RESP 20–30; O2SAT 97–100
--- NOTE | 2021-02-04 10:38 | DI.RAD.S_ITS ---
PROCEDURE: PAIN L/S FACET INJ/BLK 1ST RADHA COMPARISON: None. INDICATIONS: SPONDYLOSIS FINDINGS: There has been needle tip localization of the medial branch block positions of the L3, L4, and L5 right-sided nerve roots. IMPRESSION: Successful needle tip localization for right-sided 3 level medial branch block procedure as discussed. Dictated by: Jay Logan M.D. on 02/04/2021 at 12:42 Approved by: Jay Logan M.D. on 02/04/2021 at 12:42
[2021-02-04] MEDS: MIDAZOLAM 5 MG/5 ML VIAL IV (11:30)
[2021-02-04] MEDS: IOPAMIDOL 15 ML VIAL 3 ML INJ (11:33)
[2021-02-04] MEDS: BUPIVACAINE 0.5% (PF) VIAL 2 ML INJ (11:34)
[2021-02-04] MEDS: LIDOCAINE 1% 20 ML 10 ML INJ (11:34)
--- NOTE | 2021-02-04 11:52 | PM.PROC.IR.1 ---
Date/Time/Diagnoses Date of procedure: 02/04/21 Time of procedure: 11:53 Pre-procedure diagnosis: 1. FACET ARTHROPATHY Post-procedure diagnosis: same Procedure Notes Procedure: 1. BILATERAL L3, L4 AND L5 DIAGNOSTIC MB BLOCKS Indications: Peace is referred by Dr. Alva for treatment of Bilateral Axial LBP. Physician: Richard Willson Total Fluoroscopy time (seconds): 11 Total sedation minutes: 16 Complications: none Procedure in detail & Post-procedure care: DESCRIPTION OF PROCEDURE Fluoroscopically guided, contrast-controlled bilateral L3, L4 AND L5 medial branch blocks with 0.5cc of 0.5% Marcaine. Following review of allergy and review of potential side effects and complications, including, but not necessarily limited to, infection, allergic reaction, local tissue breakdown, nerve injury, paralysis, stroke and possible , the patient indicated that the patient understood and agreed to proceed. An informed consent document was signed by the patient, witnessed by a nurse, and placed in the patient's chart. After review of previous anaesthesic history and IV conscious sedation the patient was deemed safe to proceed with today's procedure with IV conscious sedation as ASA class II designation. Safety time-out was performed to confirm patient ID, procedure to be performed and site of procedure. IV sedation was accomplished with a combination of 1mg of Versed was administered by the RN after DO order, titrated to patient comfort during the course of the procedure while the patient remained responsive to all verbal commands In the prone position, following sterile prep and drape of the lumbar region, the right L3, L4 AND L5 anatomical location of the medial branch of the dorsal ramus was identified fluoroscopically. Subsequently an anesthetic skin wheal using 1% lidocaine solution was initiated at each of the anatomical spots. Subsequently then a 22-gauge 3.5-inch spinal needle was atraumatically introduced and advanced under fluoroscopic guidance at each of the corresponding sites at the right L3, L4 and L5 MB. After negative aspiration, 0.2cc of Isovue 200 was injected, confirming placement without vascular or intrathecal uptake. Subsequently then 0.5cc of 0.5% Marcaine solution was injected at each of the corresponding sites at the right L3, L4 and L5 medial branch locations. The identical procedure was replicated on the left. The patient tolerated the procedure well without signs or symptoms of complications. The patient tolerated the procedure well without signs or symptoms of complications prior to transfer to the recovery area continued monitoring without incident. Post-procedure, the patient was monitored initiating provocative activities to measure the amount of relief from block of the facetogenic pain. The patient reported a VAS of 9 prior to the procedure and a post-procedure VAS of 1. It has been a pleasure to assist in the diagnostic and therapeutic care of your patient. POST OP INSTRUCTIONS The patient was provided with a Pain Log to complete over the next several hours and subsequent days prior to the patient's follow up with the ordering physician. If the patient has cleaner and polisher relief to the solution applied, then they may be a candidate for medial branch rhizotomy. The patient is aware, was provided, once again, with a Pain Log and will follow up with the referring physician for review and clinical correlation
== END 2021-02-04 12:24 | disposition home or self-care (01) ==
PROVIDERS: PCP Student in an Organized Health Care Education/Training Program; Referring Provider Physical Medicine & Rehabilitation; Visit Provider Physical Medicine & Rehabilitation
DX: S32.030A Wedge compression fracture of third lumbar vertebra, initial encounter for closed fracture (principal); M54.16 Radiculopathy, lumbar region; M41.25 Other idiopathic scoliosis, thoracolumbar region; M47.816 Spondylosis without myelopathy or radiculopathy, lumbar region
CPT/HCPCS: 64493; 64494; 99152; J2250; J3010

== ENCOUNTER 2021-02-22 09:45 | Outpatient (RCR) | payer MEDICARE, SELFPAY ==
[2021-01-20 11:46] VITALS: BMI 30.2
--- NOTE | 2021-02-10 15:55 | PT.OIE ---
Current Diagnoses Unspecified disorder of vestibular function, right ear (02/10/21) Unspecified sensorineural hearing loss (02/10/21) Tinnitus, bilateral (02/10/21) Dizziness and giddiness (02/10/21) History of falling (02/10/21) Past Medical History (Last Updated 01/24/21 @ 14:51 by Ulises Alva MD) Abnormal chest x-ray Allergies Anemia Asthma Atrial fibrillation 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) Cardiac arrhythmia (~1960) Carpal tunnel syndrome Cervical spine disease Chicken pox Chronic back pain Compression fracture of L3 lumbar vertebra COPD (chronic obstructive pulmonary disease) Deep incisional surgical site infection Facet arthropathy, lumbar Femur fracture, right GERD (gastroesophageal reflux disease) Hearing loss History of urinary incontinence (~2018) Hypertension Lumbar radiculopathy Lumbar radiculopathy, chronic Measles Non Hodgkin's lymphoma (~2018) Osteoarthritis Osteoporosis Peripheral neuropathy [facility] fever Scoliosis Scoliosis Spinal stenosis Type 2 diabetes mellitus (~1999) Vitamin D insufficiency Past Surgical History (Last Reviewed 12/28/20 @ 15:10 by Richard Willson DO) Anesthesia History of carpal tunnel release History of hemiarthroplasty of hip (~09/2020) History of tonsillectomy Visit Care Team Role Provider Type Ulises Alva MD Primary Care Provider Physician Specialty: Internal Medicine Address: [address] [place] [address], [facility] Email: [email or web address] David Hassan MD Attending Provider Physician Referring Provider Specialty: Ear, Nose, Throat Address: [address] [place] [address], [facility] Email: [email or web address] Physical Therapy Initial Evaluation PT-OP-A Visit Information Start: 02/10/21 15:23 Freq: Status: Active Protocol: Document 02/10/21 13:45 DCW (Rec: 02/10/21 15:55 DCW [id number]) Out-Patient Physical Therapy Visit Information Visit Information Visit Type Initial Evaluation Visit Start Time 13:45 Visit Stop Time 14:30 Total Visit Minutes 45 Visit Number 1 Number of REGISTERED NURSE FIRST ASSISTANT Visits 0 Evaluation Information Evaluation Date 02/10/21 PT-OP-B Current Condition Start: 02/10/21 15:23 Freq: Status: Active Protocol: Document 02/10/21 13:45 DCW (Rec: 02/10/21 15:55 [facility] [id number]) Current Condition History of Current Condition Onset Date One year history Current Complaints Feeling faint, decreased balance, fear of falling History of Current Condition Pt is an 85 year old female presenting with a six month to one year history of brief instances of feeling faint. Pt notes symptoms occur 1-2x/ week, last only a few moments , and will happen randomly, with no correlation with her activity level or position. Pt has had two falls recently, one in June 2020, which resulted in a fracture of her left humerus, and one in July 2020, which caused a right femur fracture, and led to a R ORI. Pt does not recall either fall being the result of her episodes of feeling faint. Pt does know that three years ago, over the course of four months, she lost nearly all of her hearing in her right ear. Pt reports she tracks her blood pressure, which is somewhat well controlled, however her daughter notes her pulse has been problematic, varying anywhere from 59-118 bpm upon first waking up. Daughter also notes pt has significant fear of falling after her recent injuries, even experiencing nightmares about falling. Pt has greatly limited her activity levels due to this increased fear. Treatment Goals Patient/Caregiver Goals to feel confident walking without assistance or devices. PT-OP-C Subjective Start: 02/10/21 15:23 Freq: Status: Active Protocol: Document 02/10/21 13:45 DCW (Rec: 02/10/21 15:55 [facility] [id number]) OP-PT Subjective Patient Comments Patient Comments I'm really afraid one of these times during an episode I am actually foing to pass out. Patient Questionnaires Dizziness Handicap Inventory DHI Score 56 DHI Functional Impairment 40 to 59% Impaired (Score 40- 59) PT-OP-E Functional Tests Start: 02/10/21 15:23 Freq: Status: Active Protocol: Document 02/10/21 13:45 DCW (Rec: 02/10/21 15:55 [facility] [id number]) Functional Tests Timed Up and Go (TUG) Score 24.50 seconds Comments FWW, CGA TUG Impairment Rating 100% Impaired (Score 20) PT-OP-O Vestibular Start: 02/10/21 15:23 Freq: Status: Active Protocol: Document 02/10/21 13:45 DCW (Rec: 02/10/21 15:55 DCW [id number]) Vestibular Assessment Screening Tests Vestibular Artery Screen Negative Auditory Tests Berger Test Within normal limits Rinne Test Positive Air Conduction Results Left Greater Visual Testing Smooth Pursuits Horizontal WNL Smooth Pursuits Vertical WNL Saccades Horizontal Hypermetria Gaze Evoked Nystagmus With Fixation Negative Gaze Evoked Nystagmus Without Fixation equip malf Heave Test Positive Right Thrust Head Positive Right Comments Vestibular Comments Positional testing not performed today. Pt had no subjective complaints consistent with BPPV, and due to pt's recent ORI, proper positioning would be difficult . PT-OP-T Assessment and Plan Start: 02/10/21 15:23 Freq: Status: Active Protocol: Document 02/10/21 13:45 DCW (Rec: 02/10/21 15:55 DCW [id number]) Physical Therapy Assessment Rehab Potential Rehabilitation Potential Fair Evaluation Complexity Number of Personal Factors/Comorbidities 3 or More Number of Body Systems Impaired 4 or More Clinical Presentation at Evaluation Unstable Impairments Impairments Activity Tolerance,Balance, Functional Activities, Functional Mobility,Gait,Pain, ROM,Strength,Tone,Vestibular Other Concerns Fall Risk Yes: History of falls, >13 second TUG Barriers to Rehabilitation Poor R vestibular function, recent R hip ORI, recent L humerus fracture, falls risk Goals Three Impairment Recent history of falls Long-Term Goal (LTG) Pt to demonstrate ability to bend over an brick picker after her dog with no falls over two months. LTG Duration 05/12/21 Two Impairment TUG score of 24.5 indicates increased risk of falling Long-Term Goal (LTG) Pt to score <19 on TUG using least restrictive assistive device in order to show decline in falls risk LTG Duration 05/12/21 One Impairment Pt does not have an appropriate home exercise program Short Term Goal (STG) Pt to be independent and compliant with an appropriate HEP STG Duration 03/12/21 Assessment Summary Assessment Pt presents with multiple factors which are negatively affecting her balance. Pt has substantial fear of falling, which has resulted in deconditioning. Pt's recent ORI limits mobility and causes increased pain with some movements. Pt appears to have very poor right vestibular function. Unfortunately, none of this effectively explains her occasional symptoms of brief sensations of feeling faint 1-2x/week. Between her poor vestibular function and decreased hearing R>L, it seems like she has had a R Labrynthitis at some point in the past, however, from her history, is seems like it was a slow decline over the course of four months, and she was able to compensate as she slowly lost function, and she never experienced the expected severe episode of vertigo. Pt should benefit from skilled therapy focusing on vestibular function, generalized balance and gait training, and LE strengthening in order to improve stability and confidence and decrease fear of falling. Pt should follow- through with her planned cardio follow-up next week to undergo an Echo and determine if her brief episodes are caused by a cardiac event. Physical Therapy Plan Frequency and Duration Frequency of Treatment 2x/Week Duration of Treatment Three months Plan of Care Start Date 02/10/21 Plan of Care End Date 05/12/21 Therapeutic Interventions Therapeutic Interventions Aquatic Therapy,Balance Training,Canalithic Repositioning,Coordination Training,Gait Training,Home Exercise Program,Manual Therapy,Neuromuscular Re- education,Patient/Caregiver Education,Self-Care/Home Management,Soft Tissue Mobilization,Therapeutic Activities,Therapeutic Exercises,Vestibular Rehabilitation Next Visit Focus/Plan Next Note Type Treatment Note Next Visit Plan Further balance testing, balance training, gait training, vestibular rehabilitation
--- NOTE | 2021-02-10 15:56 | PT.OPPOC ---
Physical, Occupational & Speech Therapy At [facility] Current Diagnoses Unspecified disorder of vestibular function, right ear (02/10/21) Unspecified sensorineural hearing loss (02/10/21) Tinnitus, bilateral (02/10/21) Dizziness and giddiness (02/10/21) History of falling (02/10/21) Visit Care Team Role Provider Type Ulises Alva MD Primary Care Provider Physician Specialty: Internal Medicine Address: [address] [place] [address], [address], [address] Email: [email or web address] David Hassan MD Attending Provider Physician Referring Provider Specialty: Ear, Nose, Throat Address: [address] [place] [address], [id number] Email: [email or web address] Plan Of Care PT-OP-T Assessment and Plan Start: 02/10/21 15:23 Freq: Status: Active Protocol: Document 02/10/21 13:45 DCW (Rec: 02/10/21 15:55 DCW [id number]) Physical Therapy Assessment Rehab Potential Rehabilitation Potential Fair Evaluation Complexity Number of Personal Factors/Comorbidities 3 or More Number of Body Systems Impaired 4 or More Clinical Presentation at Evaluation Unstable Impairments Impairments Activity Tolerance,Balance, Functional Activities, Functional Mobility,Gait,Pain, ROM,Strength,Tone,Vestibular Other Concerns Fall Risk Yes: History of falls, >13 second TUG Barriers to Rehabilitation Poor R vestibular function, recent R hip ORI, recent L humerus fracture, falls risk Goals Three Impairment Recent history of falls Cardiac Cath Technician Goal (LTG) Pt to demonstrate ability to bend over an flower picker after her dog with no falls over two months. LTG Duration 05/12/21 Two Impairment TUG score of 24.5 indicates increased risk of falling Snf Goal (LTG) Pt to score <19 on TUG using least restrictive assistive device in order to show decline in falls risk LTG Duration 05/12/21 One Impairment Pt does not have an appropriate home exercise program Short Term Goal (STG) Pt to be independent and compliant with an appropriate HEP STG Duration 03/12/21 Assessment Summary Assessment Pt presents with multiple factors which are negatively affecting her balance. Pt has substantial fear of falling, which has resulted in deconditioning. Pt's recent ORI limits mobility and causes increased pain with some movements. Pt appears to have very poor right vestibular function. Unfortunately, none of this effectively explains her occasional symptoms of brief sensations of feeling faint 1-2x/week. Between her poor vestibular function and decreased hearing R>L, it seems like she has had a R Labrynthitis at some point in the past, however, from her history, is seems like it was a slow decline over the course of four months, and she was able to compensate as she slowly lost function, and she never experienced the expected severe episode of vertigo. Pt should benefit from skilled therapy focusing on vestibular function, generalized balance and gait training, and LE strengthening in order to improve stability and confidence and decrease fear of falling. Pt should follow- through with her planned cardio follow-up next week to undergo an Echo and determine if her brief episodes are caused by a cardiac event. Physical Therapy Plan Frequency and Duration Frequency of Treatment 2x/Week Duration of Treatment Three months Plan of Care Start Date 02/10/21 Plan of Care End Date 05/12/21 Therapeutic Interventions Therapeutic Interventions Aquatic Therapy,Balance Training,Canalithic Repositioning,Coordination Training,Gait Training,Home Exercise Program,Manual Therapy,Neuromuscular Re- education,Patient/Caregiver Education,Self-Care/Home Management,Soft Tissue Mobilization,Therapeutic Activities,Therapeutic Exercises,Vestibular Rehabilitation Next Visit Focus/Plan Next Note Type Treatment Note Next Visit Plan Further balance testing, balance training, gait training, vestibular rehabilitation Plan of Care Dates Plan of Care Start Date 02/10/21 Plan of Care End Date 05/12/21 Electronically Signed by: Jv Lee, PT 02/10/21 2428 Please Sign and Return: I have reviewed this Plan of Care and certify that the skilled therapy services above are required to meet the patient?s needs. Physician Signature Date Printed Name and Credentials Clinical Instructor Signature Printed Name and Credentials
--- NOTE | 2021-02-12 10:54 | PT.OTN ---
Current Diagnoses Unspecified disorder of vestibular function, right ear (02/12/21) Unspecified sensorineural hearing loss (02/12/21) Tinnitus, bilateral (02/12/21) Dizziness and giddiness (02/12/21) History of falling (02/12/21) Physical Therapy Treatment Note PT-OP-A Visit Information Start: 02/10/21 15:23 Freq: Status: Active Protocol: Document 02/12/21 09:45 DCW (Rec: 02/12/21 10:54 DCW [id number]) Out-Patient Physical Therapy Visit Information Visit Information Visit Type Treatment Note Visit Start Time 09:45 Visit Stop Time 10:30 Total Visit Minutes 45 Visit Number 2 Number of CAR CLEANING SUPERVISOR Visits 0 Evaluation Information Evaluation Date 02/10/21 PT-OP-B Current Condition Start: 02/10/21 15:23 Freq: Status: Active Protocol: Document 02/10/21 13:45 DCW (Rec: 02/10/21 15:55 DCW [id number]) Current Condition History of Current Condition Onset Date One year history Current Complaints Feeling faint, decreased balance, fear of falling History of Current Condition Pt is an 85 year old female presenting with a six month to one year history of brief instances of feeling faint. Pt notes symptoms occur 1-2x/ week, last only a few moments , and will happen randomly, with no correlation with her activity level or position. Pt has had two falls recently, one in June 2020, which resulted in a fracture of her left humerus, and one in July 2020, which caused a right femur fracture, and led to a R ORI. Pt does not recall either fall being the result of her episodes of feeling faint. Pt does know that three years ago, over the course of four months, she lost nearly all of her hearing in her right ear. Pt reports she tracks her blood pressure, which is somewhat well controlled, however her daughter notes her pulse has been problematic, varying anywhere from 59-118 bpm upon first waking up. Daughter also notes pt has significant fear of falling after her recent injuries, even experiencing nightmares about falling. Pt has greatly limited her activity levels due to this increased fear. Treatment Goals Patient/Caregiver Goals to feel confident walking without assistance or devices. PT-OP-C Subjective Start: 02/10/21 15:23 Freq: Status: Active Protocol: Document 02/12/21 09:45 DCW (Rec: 02/12/21 10:54 DCW [id number]) OP-PT Subjective Patient Comments Patient Comments Pt notes she is just very stiff. It's hard for me to get up straight. PT-OP-E Functional Tests Start: 02/10/21 15:23 Freq: Status: Active Protocol: Document 02/10/21 13:45 DCW (Rec: 02/10/21 15:55 DCW [id number]) Functional Tests Timed Up and Go (TUG) Score 24.50 seconds Comments FWW, CGA TUG Impairment Rating 100% Impaired (Score 20) PT-OP-O Vestibular Start: 02/10/21 15:23 Freq: Status: Active Protocol: Document 02/10/21 13:45 DCW (Rec: 02/10/21 15:55 DCW [id number]) Vestibular Assessment Screening Tests Vestibular Artery Screen Negative Auditory Tests Berger Test Within normal limits Rinne Test Positive Air Conduction Results Left Greater Visual Testing Smooth Pursuits Horizontal WNL Smooth Pursuits Vertical WNL Saccades Horizontal Hypermetria Gaze Evoked Nystagmus With Fixation Negative Gaze Evoked Nystagmus Without Fixation equip malf Heave Test Positive Right Thrust Head Positive Right Comments Vestibular Comments Positional testing not performed today. Pt had no subjective complaints consistent with BPPV, and due to pt's recent ORI, proper positioning would be difficult . PT-OP-Q Treatments Start: 02/10/21 15:23 Freq: Status: Active Protocol: Document 02/12/21 09:45 DCW (Rec: 02/12/21 10:54 DCW [id number]) Cardio Equipment Recumbent Stepper (Sci-Fit) Duration (Minutes) 4 Resistance 1 Seat Position 9 Therapeutic Exercises Standing Exercises 2 Standing Exercise Name Step-ups Side bilateral Equipment Used 6 step 1 Standing Exercise Name Toe-taps Side bilateral Resistance 0# Equipment Used 6 step Therapeutic Activity Therapeutic Activity 1 Name Sit<->Stand Neuro Re-Education Treatment Balance Activities 5 Details WBOS /c overhead PVC B UE lift 4 Details Staggered Stance Surface Firm Equipment // bars 3 Details Seated reaching/limits of stability Comments Roberto hollins, 1# wrist weights 2 Details WBOS Surface Smiley foam 1 Details NBOS Surface Firm Equipment // bars PT-OP-T Assessment and Plan Start: 02/10/21 15:23 Freq: Status: Active Protocol: Document 02/12/21 09:45 DCW (Rec: 02/12/21 10:54 DCW [id number]) Physical Therapy Assessment Impairments Impairments Activity Tolerance,Balance, Functional Activities, Functional Mobility,Gait,Pain, ROM,Strength,Tone,Vestibular Other Concerns Fall Risk Yes: History of falls, >13 second TUG Barriers to Rehabilitation Poor R vestibular function, recent R hip ORI, recent L humerus fracture, falls risk Goals Three Impairment Recent history of falls Group Home Goal (LTG) Pt to demonstrate ability to bend over an pick out hand after her dog with no falls over two months. LTG Duration 05/12/21 Two Impairment TUG score of 24.5 indicates increased risk of falling Group Home Goal (LTG) Pt to score <19 on TUG using least restrictive assistive device in order to show decline in falls risk LTG Duration 05/12/21 One Impairment Pt does not have an appropriate home exercise program Short Term Goal (STG) Pt to be independent and compliant with an appropriate HEP STG Duration 03/12/21 Assessment Summary Assessment Pt had difficulty fully participating, fatigued and sore in right hip/left shoulder. Pt also appeared to have increased jaundice today, discussed with daughter, who stated pt had a follow-up with oncology next week. Physical Therapy Plan Frequency and Duration Frequency of Treatment 2x/Week Duration of Treatment Three months Plan of Care Start Date 02/10/21 Plan of Care End Date 05/12/21 Therapeutic Interventions Therapeutic Interventions Aquatic Therapy,Balance Training,Canalithic Repositioning,Coordination Training,Gait Training,Home Exercise Program,Manual Therapy,Neuromuscular Re- education,Patient/Caregiver Education,Self-Care/Home Management,Soft Tissue Mobilization,Therapeutic Activities,Therapeutic Exercises,Vestibular Rehabilitation Next Visit Focus/Plan Next Note Type Treatment Note Next Visit Plan Further balance testing, balance training, gait training, vestibular rehabilitation
--- NOTE | 2021-02-15 10:28 | PT.OTN ---
Current Diagnoses Unspecified disorder of vestibular function, right ear (02/15/21) Unspecified sensorineural hearing loss (02/15/21) Tinnitus, bilateral (02/15/21) Dizziness and giddiness (02/15/21) History of falling (02/15/21) Physical Therapy Treatment Note PT-OP-A Visit Information Start: 02/10/21 15:23 Freq: Status: Active Protocol: Document 02/15/21 09:48 DCW (Rec: 02/15/21 10:27 DCW [id number]) Out-Patient Physical Therapy Visit Information Visit Information Visit Type Treatment Note Visit Start Time 09:48 Visit Stop Time 10:30 Total Visit Minutes 4 Visit Number 3 Number of SIDE HEMMER Visits 0 Evaluation Information Evaluation Date 02/10/21 PT-OP-B Current Condition Start: 02/10/21 15:23 Freq: Status: Active Protocol: Document 02/10/21 13:45 DCW (Rec: 02/10/21 15:55 DCW [id number]) Current Condition History of Current Condition Onset Date One year history Current Complaints Feeling faint, decreased balance, fear of falling History of Current Condition Pt is an 85 year old female presenting with a six month to one year history of brief instances of feeling faint. Pt notes symptoms occur 1-2x/ week, last only a few moments , and will happen randomly, with no correlation with her activity level or position. Pt has had two falls recently, one in June 2020, which resulted in a fracture of her left humerus, and one in July 2020, which caused a right femur fracture, and led to a R ORI. Pt does not recall either fall being the result of her episodes of feeling faint. Pt does know that three years ago, over the course of four months, she lost nearly all of her hearing in her right ear. Pt reports she tracks her blood pressure, which is somewhat well controlled, however her daughter notes her pulse has been problematic, varying anywhere from 59-118 bpm upon first waking up. Daughter also notes pt has significant fear of falling after her recent injuries, even experiencing nightmares about falling. Pt has greatly limited her activity levels due to this increased fear. Treatment Goals Patient/Caregiver Goals to feel confident walking without assistance or devices. PT-OP-C Subjective Start: 02/10/21 15:23 Freq: Status: Active Protocol: Document 02/15/21 09:48 DCW (Rec: 02/15/21 10:27 DCW [id number]) OP-PT Subjective Patient Comments Patient Comments Pt reports she was exhausted after her last appointment, but notes that probably means it was good for her. PT-OP-E Functional Tests Start: 02/10/21 15:23 Freq: Status: Active Protocol: Document 02/10/21 13:45 DCW (Rec: 02/10/21 15:55 DCW [id number]) Functional Tests Timed Up and Go (TUG) Score 24.50 seconds Comments FWW, CGA TUG Impairment Rating 100% Impaired (Score 20) PT-OP-O Vestibular Start: 02/10/21 15:23 Freq: Status: Active Protocol: Document 02/10/21 13:45 DCW (Rec: 02/10/21 15:55 DCW [id number]) Vestibular Assessment Screening Tests Vestibular Artery Screen Negative Auditory Tests Berger Test Within normal limits Rinne Test Positive Air Conduction Results Left Greater Visual Testing Smooth Pursuits Horizontal WNL Smooth Pursuits Vertical WNL Saccades Horizontal Hypermetria Gaze Evoked Nystagmus With Fixation Negative Gaze Evoked Nystagmus Without Fixation equip malf Heave Test Positive Right Thrust Head Positive Right Comments Vestibular Comments Positional testing not performed today. Pt had no subjective complaints consistent with BPPV, and due to pt's recent ORI, proper positioning would be difficult . PT-OP-Q Treatments Start: 02/10/21 15:23 Freq: Status: Active Protocol: Document 02/15/21 09:48 DCW (Rec: 02/15/21 10:27 DCW [id number]) Cardio Equipment Recumbent Elliptical (Biodex) Duration (Minutes) 5 Resistance 3 Seat Position 9 Therapeutic Exercises Standing Exercises 1 Standing Exercise Name Toe-taps Side bilateral Resistance 0# Equipment Used 6 step Neuro Re-Education Treatment Balance Activities 6 Details X viewing Comments Standing in // bars 5 Details WBOS /c overhead PVC B UE lift 4 Details Staggered Stance Surface Firm Equipment // bars 3 Details Seated reaching/limits of stability Comments Roberto hollins, 1# wrist weights 2 Details WBOS Surface Smiley foam 1 Details NBOS Surface Firm Equipment // bars Comments EO/EC PT-OP-T Assessment and Plan Start: 02/10/21 15:23 Freq: Status: Active Protocol: Document 02/15/21 09:48 DCW (Rec: 02/15/21 10:27 DCW [id number]) Physical Therapy Assessment Impairments Impairments Activity Tolerance,Balance, Functional Activities, Functional Mobility,Gait,Pain, ROM,Strength,Tone,Vestibular Other Concerns Fall Risk Yes: History of falls, >13 second TUG Barriers to Rehabilitation Poor R vestibular function, recent R hip ORI, recent L humerus fracture, falls risk Goals Three Impairment Recent history of falls Supervisor Research Shop Goal (LTG) Pt to demonstrate ability to bend over an crab picker after her dog with no falls over two months. LTG Duration 05/12/21 Two Impairment TUG score of 24.5 indicates increased risk of falling Senior Living Goal (LTG) Pt to score <19 on TUG using least restrictive assistive device in order to show decline in falls risk LTG Duration 05/12/21 One Impairment Pt does not have an appropriate home exercise program Short Term Goal (STG) Pt to be independent and compliant with an appropriate HEP STG Duration 03/12/21 Assessment Summary Assessment Pt very fatigued again today, had difficulty participating in any activity longer than 1-2 minutes. Displayed fairly good balance when she was able to perform the activity Physical Therapy Plan Frequency and Duration Frequency of Treatment 2x/Week Duration of Treatment Three months Plan of Care Start Date 02/10/21 Plan of Care End Date 05/12/21 Therapeutic Interventions Therapeutic Interventions Aquatic Therapy,Balance Training,Canalithic Repositioning,Coordination Training,Gait Training,Home Exercise Program,Manual Therapy,Neuromuscular Re- education,Patient/Caregiver Education,Self-Care/Home Management,Soft Tissue Mobilization,Therapeutic Activities,Therapeutic Exercises,Vestibular Rehabilitation Next Visit Focus/Plan Next Note Type Treatment Note Next Visit Plan Further balance testing, balance training, gait training, vestibular rehabilitation
--- NOTE | 2021-02-18 10:29 | PT.OTN ---
Current Diagnoses Unspecified disorder of vestibular function, right ear (02/18/21) Unspecified sensorineural hearing loss (02/18/21) Tinnitus, bilateral (02/18/21) Dizziness and giddiness (02/18/21) History of falling (02/18/21) Physical Therapy Treatment Note PT-OP-A Visit Information Start: 02/10/21 15:23 Freq: Status: Active Protocol: Document 02/18/21 09:45 DCW (Rec: 02/18/21 10:29 DCW [id number]) Out-Patient Physical Therapy Visit Information Visit Information Visit Type Treatment Note Visit Start Time 09:45 Visit Stop Time 10:30 Total Visit Minutes 45 Visit Number 4 Number of MARINE WATER TENDER Visits 0 Evaluation Information Evaluation Date 02/10/21 PT-OP-B Current Condition Start: 02/10/21 15:23 Freq: Status: Active Protocol: Document 02/10/21 13:45 DCW (Rec: 02/10/21 15:55 DCW [id number]) Current Condition History of Current Condition Onset Date One year history Current Complaints Feeling faint, decreased balance, fear of falling History of Current Condition Pt is an 85 year old female presenting with a six month to one year history of brief instances of feeling faint. Pt notes symptoms occur 1-2x/ week, last only a few moments , and will happen randomly, with no correlation with her activity level or position. Pt has had two falls recently, one in June 2020, which resulted in a fracture of her left humerus, and one in July 2020, which caused a right femur fracture, and led to a R ORI. Pt does not recall either fall being the result of her episodes of feeling faint. Pt does know that three years ago, over the course of four months, she lost nearly all of her hearing in her right ear. Pt reports she tracks her blood pressure, which is somewhat well controlled, however her daughter notes her pulse has been problematic, varying anywhere from 59-118 bpm upon first waking up. Daughter also notes pt has significant fear of falling after her recent injuries, even experiencing nightmares about falling. Pt has greatly limited her activity levels due to this increased fear. Treatment Goals Patient/Caregiver Goals to feel confident walking without assistance or devices. PT-OP-C Subjective Start: 02/10/21 15:23 Freq: Status: Active Protocol: Document 02/18/21 09:45 DCW (Rec: 02/18/21 10:29 DCW [id number]) OP-PT Subjective Patient Comments Patient Comments Pt notes her property assessment monitor showed her heart is a little slow, and now she needs to go see a music professor. PT-OP-E Functional Tests Start: 02/10/21 15:23 Freq: Status: Active Protocol: Document 02/10/21 13:45 DCW (Rec: 02/10/21 15:55 DCW [id number]) Functional Tests Timed Up and Go (TUG) Score 24.50 seconds Comments FWW, CGA TUG Impairment Rating 100% Impaired (Score 20) PT-OP-O Vestibular Start: 02/10/21 15:23 Freq: Status: Active Protocol: Document 02/10/21 13:45 DCW (Rec: 02/10/21 15:55 DCW [id number]) Vestibular Assessment Screening Tests Vestibular Artery Screen Negative Auditory Tests Berger Test Within normal limits Rinne Test Positive Air Conduction Results Left Greater Visual Testing Smooth Pursuits Horizontal WNL Smooth Pursuits Vertical WNL Saccades Horizontal Hypermetria Gaze Evoked Nystagmus With Fixation Negative Gaze Evoked Nystagmus Without Fixation equip malf Heave Test Positive Right Thrust Head Positive Right Comments Vestibular Comments Positional testing not performed today. Pt had no subjective complaints consistent with BPPV, and due to pt's recent ORI, proper positioning would be difficult . PT-OP-Q Treatments Start: 02/10/21 15:23 Freq: Status: Active Protocol: Document 02/18/21 09:45 DCW (Rec: 02/18/21 10:29 DCW [id number]) Cardio Equipment Recumbent Elliptical (BiodKienVe) Duration (Minutes) 5 Resistance 2 Seat Position 8 Therapeutic Exercises Sitting Exercises 1 Sitting Exercise Name 4-way ankle flexion Side bilateral Resistance Lv 2 Equipment Used T-band Standing Exercises 3 Standing Exercise Name Hip abduction Side bilateral Resistance 1# 1 Standing Exercise Name Toe-taps Side bilateral Resistance 0# Equipment Used 6 step Neuro Re-Education Treatment Balance Activities 5 Details WBOS /c overhead PVC B UE lift Surface Blue foam 3 Details Seated reaching/limits of stability Comments Balloon gunjan, 1# wrist weights PT-OP-T Assessment and Plan Start: 02/10/21 15:23 Freq: Status: Active Protocol: Document 02/18/21 09:45 DCW (Rec: 02/18/21 10:29 DCW [id number]) Physical Therapy Assessment Impairments Impairments Activity Tolerance,Balance, Functional Activities, Functional Mobility,Gait,Pain, ROM,Strength,Tone,Vestibular Other Concerns Fall Risk Yes: History of falls, >13 second TUG Barriers to Rehabilitation Poor R vestibular function, recent R hip ORI, recent L humerus fracture, falls risk Goals Three Impairment Recent history of falls Human Performance Technologist Goal (LTG) Pt to demonstrate ability to bend over an chicken picker after her dog with no falls over two months. LTG Duration 05/12/21 Two Impairment TUG score of 24.5 indicates increased risk of falling [facility] Goal (LTG) Pt to score <19 on TUG using least restrictive assistive device in order to show decline in falls risk LTG Duration 05/12/21 One Impairment Pt does not have an appropriate home exercise program Short Term Goal (STG) Pt to be independent and compliant with an appropriate HEP STG Duration 03/12/21 Assessment Summary Assessment Pt again fatigued throughout her entire session, required multiple rest breaks, very high fear of falling also limiting her participation. Physical Therapy Plan Frequency and Duration Frequency of Treatment 2x/Week Duration of Treatment Three months Plan of Care Start Date 02/10/21 Plan of Care End Date 05/12/21 Therapeutic Interventions Therapeutic Interventions Aquatic Therapy,Balance Training,Canalithic Repositioning,Coordination Training,Gait Training,Home Exercise Program,Manual Therapy,Neuromuscular Re- education,Patient/Caregiver Education,Self-Care/Home Management,Soft Tissue Mobilization,Therapeutic Activities,Therapeutic Exercises,Vestibular Rehabilitation Next Visit Focus/Plan Next Note Type Treatment Note Next Visit Plan Further balance testing, balance training, gait training, vestibular rehabilitation
--- NOTE | 2021-02-22 10:32 | PT.OTN ---
Current Diagnoses Unspecified disorder of vestibular function, right ear (02/22/21) Unspecified sensorineural hearing loss (02/22/21) Tinnitus, bilateral (02/22/21) Dizziness and giddiness (02/22/21) History of falling (02/22/21) Physical Therapy Treatment Note PT-OP-A Visit Information Start: 02/10/21 15:23 Freq: Status: Active Protocol: Document 02/22/21 09:45 DCW (Rec: 02/22/21 10:31 DCW [id number]) Out-Patient Physical Therapy Visit Information Visit Information Visit Type Treatment Note Visit Start Time 09:45 Visit Stop Time 10:30 Total Visit Minutes 45 Visit Number 5 Number of ASSISTANT ENGINEER Visits 0 Evaluation Information Evaluation Date 02/10/21 PT-OP-B Current Condition Start: 02/10/21 15:23 Freq: Status: Active Protocol: Document 02/10/21 13:45 DCW (Rec: 02/10/21 15:55 DCW [id number]) Current Condition History of Current Condition Onset Date One year history Current Complaints Feeling faint, decreased balance, fear of falling History of Current Condition Pt is an 85 year old female presenting with a six month to one year history of brief instances of feeling faint. Pt notes symptoms occur 1-2x/ week, last only a few moments , and will happen randomly, with no correlation with her activity level or position. Pt has had two falls recently, one in June 2020, which resulted in a fracture of her left humerus, and one in July 2020, which caused a right femur fracture, and led to a R ORI. Pt does not recall either fall being the result of her episodes of feeling faint. Pt does know that three years ago, over the course of four months, she lost nearly all of her hearing in her right ear. Pt reports she tracks her blood pressure, which is somewhat well controlled, however her daughter notes her pulse has been problematic, varying anywhere from 59-118 bpm upon first waking up. Daughter also notes pt has significant fear of falling after her recent injuries, even experiencing nightmares about falling. Pt has greatly limited her activity levels due to this increased fear. Treatment Goals Patient/Caregiver Goals to feel confident walking without assistance or devices. PT-OP-C Subjective Start: 02/10/21 15:23 Freq: Status: Active Protocol: Document 02/22/21 09:45 DCW (Rec: 02/22/21 10:31 DCW [id number]) OP-PT Subjective Patient Comments Patient Comments Pt's daughter reports that at pt's oncology appointment last week, they decided she would start immunosuppresant therapy to treat her jaundice. During the time she is being treated , daughter feels it will be better to not attend therapy. Pt will be discharged following start of her immuno therapy, and will return afterward with a new referral. Not sure at this time when her immunotherapy will begin. PT-OP-E Functional Tests Start: 02/10/21 15:23 Freq: Status: Active Protocol: Document 02/10/21 13:45 DCW (Rec: 02/10/21 15:55 DCW [id number]) Functional Tests Timed Up and Go (TUG) Score 24.50 seconds Comments FWW, CGA TUG Impairment Rating 100% Impaired (Score 20) PT-OP-O Vestibular Start: 02/10/21 15:23 Freq: Status: Active Protocol: Document 02/10/21 13:45 DCW (Rec: 02/10/21 15:55 DCW [id number]) Vestibular Assessment Screening Tests Vestibular Artery Screen Negative Auditory Tests Berger Test Within normal limits Rinne Test Positive Air Conduction Results Left Greater Visual Testing Smooth Pursuits Horizontal WNL Smooth Pursuits Vertical WNL Saccades Horizontal Hypermetria Gaze Evoked Nystagmus With Fixation Negative Gaze Evoked Nystagmus Without Fixation equip malf Heave Test Positive Right Thrust Head Positive Right Comments Vestibular Comments Positional testing not performed today. Pt had no subjective complaints consistent with BPPV, and due to pt's recent ORI, proper positioning would be difficult . PT-OP-Q Treatments Start: 02/10/21 15:23 Freq: Status: Active Protocol: Document 02/22/21 09:45 DCW (Rec: 02/22/21 10:31 DCW [id number]) Cardio Equipment Recumbent Elliptical (BiodRecommendo) Duration (Minutes) 5 Resistance 3 Seat Position 7 Therapeutic Exercises Sitting Exercises 2 Sitting Exercise Name Hamstring curls Side bilateral Resistance Lv 2 Equipment Used T-band 1 Sitting Exercise Name 4-way ankle flexion Side bilateral Resistance Lv 2 Equipment Used T-band Standing Exercises 3 Standing Exercise Name Hip abduction Side bilateral Resistance 1# 1 Standing Exercise Name Toe-taps Side bilateral Resistance 0# Equipment Used 6 step Neuro Re-Education Treatment Balance Activities 5 Details WBOS /c overhead PVC B UE lift Surface Blue foam 4 Details Staggered Stance Surface Firm Equipment // bars 3 Details Seated reaching/limits of stability Comments Roberto hollins, 1# wrist weights PT-OP-T Assessment and Plan Start: 02/10/21 15:23 Freq: Status: Active Protocol: Document 02/22/21 09:45 DCW (Rec: 02/22/21 10:31 DCW [id number]) Physical Therapy Assessment Impairments Impairments Activity Tolerance,Balance, Functional Activities, Functional Mobility,Gait,Pain, ROM,Strength,Tone,Vestibular Other Concerns Fall Risk Yes: History of falls, >13 second TUG Barriers to Rehabilitation Poor R vestibular function, recent R hip ORI, recent L humerus fracture, falls risk Goals Three Impairment Recent history of falls Exceptional Student Education Aide Goal (LTG) Pt to demonstrate ability to bend over an pecan picker after her dog with no falls over two months. LTG Duration 05/12/21 Two Impairment TUG score of 24.5 indicates increased risk of falling Exceptional Student Education Aide Goal (LTG) Pt to score <19 on TUG using least restrictive assistive device in order to show decline in falls risk LTG Duration 05/12/21 One Impairment Pt does not have an appropriate home exercise program Short Term Goal (STG) Pt to be independent and compliant with an appropriate HEP STG Duration 03/12/21 Assessment Summary Assessment Pt much less fatigued today, fewer breaks required. Pt's daughter sat in during treatment to take notes for HEP, as pt may be discharging soon to treatment of unrelated medical issues. Physical Therapy Plan Frequency and Duration Frequency of Treatment 2x/Week Duration of Treatment Three months Plan of Care Start Date 02/10/21 Plan of Care End Date 05/12/21 Therapeutic Interventions Therapeutic Interventions Aquatic Therapy,Balance Training,Canalithic Repositioning,Coordination Training,Gait Training,Home Exercise Program,Manual Therapy,Neuromuscular Re- education,Patient/Caregiver Education,Self-Care/Home Management,Soft Tissue Mobilization,Therapeutic Activities,Therapeutic Exercises,Vestibular Rehabilitation Next Visit Focus/Plan Next Note Type Treatment Note Next Visit Plan Further balance testing, balance training, gait training, vestibular rehabilitation
--- NOTE | 2021-03-01 10:04 | PT.OPDS ---
Current Diagnoses Unspecified disorder of vestibular function, right ear (02/22/21) Unspecified sensorineural hearing loss (02/22/21) Tinnitus, bilateral (02/22/21) Dizziness and giddiness (02/22/21) History of falling (02/22/21) Visit Care Team Role Provider Type Ulises lAva MD Primary Care Provider Physician Specialty: Internal Medicine Address: [address] [place] [address], [address], [address] Email: [email or web address] David Hassan MD Attending Provider Physician Referring Provider Specialty: Ear, Nose, Throat Address: [address] [place] [address], [address] Email: [email or web address] Visit Number Visit Number 5 Discharge Summary PT-OP-B Current Condition Start: 02/10/21 15:23 Freq: Status: Active Protocol: Document 02/10/21 13:45 DCW (Rec: 02/10/21 15:55 DCW [id number]) Current Condition History of Current Condition Onset Date One year history Current Complaints Feeling faint, decreased balance, fear of falling History of Current Condition Pt is an 85 year old female presenting with a six month to one year history of brief instances of feeling faint. Pt notes symptoms occur 1-2x/ week, last only a few moments , and will happen randomly, with no correlation with her activity level or position. Pt has had two falls recently, one in June 2020, which resulted in a fracture of her left humerus, and one in July 2020, which caused a right femur fracture, and led to a R ORI. Pt does not recall either fall being the result of her episodes of feeling faint. Pt does know that three years ago, over the course of four months, she lost nearly all of her hearing in her right ear. Pt reports she tracks her blood pressure, which is somewhat well controlled, however her daughter notes her pulse has been problematic, varying anywhere from 59-118 bpm upon first waking up. Daughter also notes pt has significant fear of falling after her recent injuries, even experiencing nightmares about falling. Pt has greatly limited her activity levels due to this increased fear. Treatment Goals Patient/Caregiver Goals to feel confident walking without assistance or devices. PT-OP-C Subjective Start: 02/10/21 15:23 Freq: Status: Active Protocol: Document 02/22/21 09:45 DCW (Rec: 02/22/21 10:31 DCW [id number]) OP-PT Subjective Patient Comments Patient Comments Pt's daughter reports that at pt's oncology appointment last week, they decided she would start immunosuppresant therapy to treat her jaundice. During the time she is being treated , daughter feels it will be better to not attend therapy. Pt will be discharged following start of her immuno therapy, and will return afterward with a new referral. Not sure at this time when her immunotherapy will begin. PT-OP-E Functional Tests Start: 02/10/21 15:23 Freq: Status: Active Protocol: Document 02/10/21 13:45 DCW (Rec: 02/10/21 15:55 DCW [id number]) Functional Tests Timed Up and Go (TUG) Score 24.50 seconds Comments FWW, CGA TUG Impairment Rating 100% Impaired (Score 20) PT-OP-O Vestibular Start: 02/10/21 15:23 Freq: Status: Active Protocol: Document 02/10/21 13:45 DCW (Rec: 02/10/21 15:55 DCW [id number]) Vestibular Assessment Screening Tests Vestibular Artery Screen Negative Auditory Tests Berger Test Within normal limits Rinne Test Positive Air Conduction Results Left Greater Visual Testing Smooth Pursuits Horizontal WNL Smooth Pursuits Vertical WNL Saccades Horizontal Hypermetria Gaze Evoked Nystagmus With Fixation Negative Gaze Evoked Nystagmus Without Fixation equip malf Heave Test Positive Right Thrust Head Positive Right Comments Vestibular Comments Positional testing not performed today. Pt had no subjective complaints consistent with BPPV, and due to pt's recent ORI, proper positioning would be difficult . PT-OP-T Assessment and Plan Start: 02/10/21 15:23 Freq: Status: Active Protocol: Document 03/01/21 09:59 DCW (Rec: 03/01/21 10:04 DCW [id number]) Physical Therapy Assessment Impairments Impairments Activity Tolerance,Balance, Functional Activities, Functional Mobility,Gait,Pain, ROM,Strength,Tone,Vestibular Other Concerns Fall Risk Yes: History of falls, >13 second TUG Barriers to Rehabilitation Poor R vestibular function, recent R hip ORI, recent L humerus fracture, falls risk Goals Three Impairment Recent history of falls Immigration Case Worker Goal (LTG) Pt to demonstrate ability to bend over an pickle maker after her dog with no falls over two months. LTG Duration 05/12/21 Two Impairment TUG score of 24.5 indicates increased risk of falling Immigration Case Worker Goal (LTG) Pt to score <19 on TUG using least restrictive assistive device in order to show decline in falls risk LTG Duration 05/12/21 One Impairment Pt does not have an appropriate home exercise program Short Term Goal (STG) Pt to be independent and compliant with an appropriate HEP STG Duration 03/12/21 Assessment Summary Assessment Pt's daughter phoned last week to cancel remaining appointments. Pt is going to be starting chemo, and undergoing treatment regularly for at least the next month. Pt will be discharged from skilled therapy at this time, and will require a new referral in order to return after her treatment. Physical Therapy Plan Frequency and Duration Frequency of Treatment 2x/Week Duration of Treatment Three months Plan of Care Start Date 02/10/21 Plan of Care End Date 05/12/21 Therapeutic Interventions Therapeutic Interventions Aquatic Therapy,Balance Training,Canalithic Repositioning,Coordination Training,Gait Training,Home Exercise Program,Manual Therapy,Neuromuscular Re- education,Patient/Caregiver Education,Self-Care/Home Management,Soft Tissue Mobilization,Therapeutic Activities,Therapeutic Exercises,Vestibular Rehabilitation Discharge Physical Therapy Discharge Reasons Change in Medical Status Next Visit Focus/Plan Next Note Type Discharge Summary
== END 2021-03-02 14:18 | disposition home or self-care (01) ==
LOC: PHYS 09:45
PROVIDERS: PCP Student in an Organized Health Care Education/Training Program; Referring Provider Otolaryngology; Visit Provider Otolaryngology
DX: H90.5 Unspecified sensorineural hearing loss (principal); H93.13 Tinnitus, bilateral; Z91.81 History of falling; H81.91 Unspecified disorder of vestibular function, right ear
CPT/HCPCS: 97110; 97112; 97163

== ENCOUNTER → 2021-02-25 07:59 | Outpatient (CLI) | payer MEDICARE, SELFPAY ==
[2021-01-20 11:46] VITALS: BMI 30.2
--- NOTE | 2021-02-25 08:00 | DI.ECHO.S_ITS ---
[facility] +---------+ : : [address] [place] : : : : [id number] : : : : Phone: [phone]+ Echocardiogram Report + + :Name: JUICE RENE Study Date: 02/25/2021 Height: 61 in : :[facility] ReadingLocation: Weight: 170 lb : : Gender: Female BSA: 1.8 m2 : :: 1935 Age: 85 yrs BP: 138/66 mmHg: :Reason For Study: PERIPHERAL EDEMA/ PRESYNCOPE : :Ordering Physician: GALE, : :GORDY Performed By: Gayla Marshall : :Referring: GORDY BEASLEY : + + Interpretation Summary 1) Mild increased left ventricular thickness (concentric) with normla size, normal wall motion, and normal systolic function (EF 6-65%). 2) Normal right ventricular size and function. 3) The left atrium is severely dilated. 4) Calcific mitral valve with mild mitral stenosis (mean inflow gradient 5.4mmHg with HR in the 60s). 5) The right ventricular systolic pressure is estimated to be at least 51 mmHg based on an estimated right atrial pressure of 8 mm Hg. 6) There is mild luminal irregularity and echogenicity in the abdominal aorta, suggestive of aortic atherosclerotic disease. 7) Compared to the Echo done 09/24/2020, systolic pulmonary artery pressure has increased from 37mmHg to 51mmHg on this study. Procedure: A two-dimensional transthoracic echocardiogram with color flow and Doppler was performed. The study quality was technically adequate. Comparison is made with the echocardiogram of 09/24/2020. The patient was in sinus rhythm with heart rates between 67-96 bpm during the exam. Left Ventricle: The left ventricle is normal in size. There is mild concentric left ventricular hypertrophy. The ejection fraction is estimated to be 60-65%. Diastolic function could not be accurately assessed due to confounding valvular disease. Right Ventricle: The right ventricle is normal in size and function. Atria: The left atrium is severely dilated. Right atrial size is normal. There is no Doppler evidence for an interatrial shunt. Mitral Valve: There is moderate to severe mitral annular calcification. The mitral valve leaflets are moderately calcified. The mitral valve mean gradient is 5.4 mmHg. There is mild mitral stenosis. There is mild mitral regurgitation. Aortic Valve: The aortic valve is trileaflet. The aortic valve opens well. There is no aortic valve stenosis. No aortic regurgitation is present. Tricuspid Valve: The tricuspid valve is normal in structure and function. There is mild tricuspid regurgitation. The right ventricular systolic pressure is estimated to be at least 51 mmHg based on an estimated right atrial pressure of 8 mm Hg. Pulmonic Valve: The pulmonic valve leaflets are thin and pliable; valve motion is normal. There is no pulmonic valvular regurgitation. Great Vessels: The aortic root is normal size. The dimensions of the ascending aorta are normal. There is mild luminal irregularity and echogenicity in the abdominal aorta, suggestive of aortic atherosclerotic disease. The IVC is of normal diameter and collapses greater than 50% with a sniff. This suggests a low right atrial pressure of 3 mm Hg. Pericardium/ Pleura There is no pericardial effusion. There is no pleural effusion. MMode/2D Measurements & Calculations LVIDd: 4.5 cm LVOT diam: 2.0 cm LVIDs: 3.1 cm Ao root diam: 3.0 cm FS: 30.8 % asc Aorta Diam: 3.2 cm EPSS: 0.95 cm Ao Arch Diam (Prox Trans): 2.2 cm IVSd: 1.4 cm LVPWd: 1.4 cm LV cole. diameter/BSA (cm/m^2): 2.5 LV sys. diameter/BSA (cm/m^2): 1.8 LA A2 area: 34.7 cm2 RA long axis: 5.9 cm LA A4 area: 24.9 cm2 RA area: 18.8 cm2 LA length (vol): 6.1 cm RA vol: 51.0 ml LA vol: 120.3 ml RA : 28.9 ml/m2 LA vol index: 68.3 ml/m2 IVC diam: 1.8 cm RVD1 (basal): 3.3 cm TAPSE: 2.5 cm Doppler Measurements & Calculations Ao V2 max: 157.6 cm/sec LVOT Max Petros: 108.9 cm/sec Ao V2 mean: 110.0 cm/sec LV V1 max P.7 mmHg Ao max P.9 mmHg LV V1 VTI: 21.5 cm Ao mean P.4 mmHg GERARDO(I,D): 2.0 cm2 Ao V2 VTI: 31.9 cm GERARDO(V,D): 2.1 cm2 sev ratio: 0.68 GERARDO indexed to BSA (cm^2/m^2): 1.2 MV E max petros: 141.5 cm/sec TR max petros: 329.5 cm/sec MV A max petros: 169.2 cm/sec TR max P.4 mmHg MV E/A: 0.84 PA V2 max: 106.0 cm/sec Med Peak E' Petros: 7.3 cm/sec PA V2 mean: 74.5 cm/sec E/E' med: 19.4 PA mean P.4 mmHg Lat Peak E' Petros: 9.3 cm/sec PA pr(Accel): 36.6 mmHg E/E' lat: 15.1 E/e' average: 17.3 MV dec time: 0.30 sec MVA(VTI): 1.5 cm2 MV V2 mean: 109.0 cm/sec SV(LVOT): 65.2 ml MV mean P.4 mmHg MV V2 VTI: 42.5 cm Reading Physician:01:13 PM
== END ==
PROVIDERS: PCP Student in an Organized Health Care Education/Training Program; Referring Provider Student in an Organized Health Care Education/Training Program; Visit Provider Student in an Organized Health Care Education/Training Program
DX: I08.1 Rheumatic disorders of both mitral and tricuspid valves (principal); R60.9 Edema, unspecified; R42 Dizziness and giddiness; R55 Syncope and collapse
CPT/HCPCS: 93306

== ENCOUNTER → 2021-03-11 15:02 | Outpatient (CLI) | payer MEDICARE, SELFPAY ==
[2021-01-20 11:46] VITALS: BMI 30.2
--- NOTE | 2021-03-11 15:04 | DI.RAD.S_ITS ---
PROCEDURE: XR KNEE LT 3V INDICATIONS: Left knee DJD TECHNIQUE: 3 views of the knee were acquired. COMPARISON: None. FINDINGS: Bones: No fractures or dislocations. No suspicious bony lesions. Moderate tricompartmental osteoarthritis with osteophytosis and mild joint space narrowing. Soft tissues: Small suprapatellar joint effusion. No suspicious soft tissue calcifications. IMPRESSION: Moderate tricompartmental osteoarthritis. Dictated by: Dolores Ledesma MD, PhD on 03/11/2021 at 18:25 Approved by: Dolores Ledesma MD, PhD on 03/11/2021 at 18:26
--- NOTE | 2021-03-11 15:04 | DI.RAD.S_ITS ---
PROCEDURE: XR KNEE RT 3V INDICATIONS: knee DJD TECHNIQUE: 3 views of the knee were acquired. COMPARISON: None. FINDINGS: Bones: No fractures or dislocations. No suspicious bony lesions. Moderate tricompartmental osteoarthritis with joint space narrowing and marginal osteophytosis. Soft tissues: No joint effusion. No suspicious soft tissue calcifications. IMPRESSION: Moderate tricompartmental osteoarthritis. Dictated by: Dolores Ledesma MD, PhD on 03/11/2021 at 18:26 Approved by: Dolores Ledesma MD, PhD on 03/11/2021 at 18:26
== END ==
PROVIDERS: PCP Student in an Organized Health Care Education/Training Program; Referring Provider Physical Medicine & Rehabilitation; Visit Provider Physical Medicine & Rehabilitation
DX: M17.0 Bilateral primary osteoarthritis of knee (principal)
CPT/HCPCS: 73562

== ENCOUNTER → 2021-04-05 10:11 | Outpatient (CLI) | payer MEDICARE, SELFPAY ==
[2021-01-20 11:46] VITALS: BMI 30.2
[2021-04-05 11:20] LABS: COVID19 -Nasal RAPID Negative (Negative)
== END ==
PROVIDERS: PCP Student in an Organized Health Care Education/Training Program; Visit Provider Student in an Organized Health Care Education/Training Program
DX: Z01.812 Encounter for preprocedural laboratory examination (principal); Z20.822 Contact with and (suspected) exposure to COVID-19
CPT/HCPCS: 87635; C9803

== ENCOUNTER 2021-04-06 14:41 | Outpatient (CLI) | payer MEDICARE, SELFPAY ==
[2021-01-20 11:46] VITALS: BMI 30.2
--- NOTE | 2021-04-06 14:44 | DI.RAD.S_ITS ---
PROCEDURE: PAIN L INTERLAMINAR/CAUDAL INJ INDICATIONS: SPONDYLOSIS COMPARISON: None. FINDINGS: Fluoroscopic spot filming was performed to verify placement of spinal needles at the right paramedian L4-5 interlaminar space for epidural steroid injection, as labeled on the films. Appropriate location(s) of the needle tip(s) was confirmed by injection of iodinated contrast. IMPRESSION: Successful needle tip localization on the right as discussed above for epidural steroid injection. Dictated by: Jay Logan M.D. on 04/06/2021 at 15:17 Approved by: Jay Logan M.D. on 04/06/2021 at 15:17
[2021-04-06 15:25] VITALS: BP 112/37; PULSE 46; RESP 17; TEMP 36.4; O2SAT 100
[2021-04-06 15:50] VITALS: BP 145/63; PULSE 62; RESP 26; O2SAT 100
[2021-04-06] MEDS: IOPAMIDOL 15 ML VIAL 3 ML INJ (15:53)
[2021-04-06] MEDS: BUPIVACAINE 0.25% (PF) VIAL 2 ML INJ (15:54)
[2021-04-06] MEDS: BETAMETHASONE 30 MG/5 ML MDV 6 MG INJ (15:54)
[2021-04-06] MEDS: DEXAMETHASONE 10 MG/ML VIAL 20 MG INJ (15:54)
[2021-04-06 15:55] VITALS: BP 127/60; PULSE 86; RESP 22; O2SAT 100
[2021-04-06 15:59] VITALS: BP 128/62; PULSE 85; RESP 16; O2SAT 99
--- NOTE | 2021-04-06 16:03 | P.PCN_ITS ---
Date/Time/Diagnoses Date of procedure: 04/06/21 Time of procedure: 16:03 Pre-procedure diagnosis: 1. HNP WITH RADICULAR FEATURES, 2. MULTILEVEL CENTRAL STENOSIS, Post-procedure diagnosis: same Procedure Notes Procedure: 1. FLUOROSCOPICALLY GUIDED CONTRAST CONTROLLED INTERLAMINAR EPIDURAL STEROID INJECTION -L4/5 Indications: Peace is referred by Dr. Alva for treatment of Bilateral Foraminal Stenosis R>L LE symptoms. Physician: Richard Willson Total Fluoroscopy time (seconds): 7 Total sedation minutes: 0 Complications: none Procedure in detail & Post-procedure care: FINDINGS Multilevel Central Spinal Stenosis with Nerve Root Compression DESCRIPTION OF PROCEDURE Fluoroscopically guided, contrast-controlled L4/5 translaminar epidural steroid injection. Following review of allergy and review of potential side effects and complications, including, but not necessarily limited to, infection, allergic reaction, local tissue breakdown, temporary as well as permanent nerve injury, paralysis, stroke and possible , the patient indicated that the patient understood and agreed to proceed. An informed consent document was signed by the patient, witnessed by a nurse, and placed in the patient's chart. Additionally, other treatment options including modalities, medications, and physical therapy were reviewed with the patient. After review of previous anaesthesic history and IV conscious sedation the patient was deemed safe to proceed with today?s procedure with IV conscious sedation as ASA class II designation. Safety time-out was performed to confirm patient ID, procedure to be performed and site of procedure. IV sedation was deemed unnecessary and thus not administered by the RN after DO order, titrated to patient comfort during the course of the procedure while the patient remained responsive to all verbal commands In the prone position, following sterile prep and drape of the lumbar region, the L4/5 translaminar space was identified fluoroscopically. The skin was anesthetized via a 25-gauge, 1.5inch needle with 1% lidocaine solution. At this point, a 22-gauge short bevel spinal needle was atraumatically introduced and advanced under fluoroscopic guidance into the region of the L4/5 translaminar space. Depth was confirmed on lateral view. Radiological data, including multiple fluoroscopic views of the lumbar spine, reveal a spinal needle at the L4/5 translaminar space. Lateral views then show placement of the needle in the epidural space. Subsequent views show contrast material flowing superiorly and inferiorly in the epidural space. No vascular or intrathecal uptake is observed. At this point, using loss of resistance technique with saline and air, the epidural space was entered. This was confirmed following negative aspiration with injection of approximately 1.5cc of Isovue 200, showing excellent epidural flow without vascular or intrathecal uptake. At this point, 1cc of 1% lidocaine solution combined with 3cc or 20mg of dexamethasone and 6mg betamethasone was injected without incident. The patient tolerated the procedure well without signs or symptoms of complications prior to transfer to the recovery area continued monitoring without incident. The patient was then transferred to the recovery area where they were observed for an appropriate period of time after the injection. The patient reported a VAS score of 6 prior to the procedure and a post- procedure VAS of 0. POST OP INSTRUCTIONS The patient was provided a Pain Log to continue to record their response to the target-specific procedure prior to follow-up visit with their referring physician. Additionally, specific post-injection care instructions and a contact number to our office were provided if concerns arise regarding possible complications associated with the procedure are suspected.
[2021-04-06 16:07] VITALS: BP 128/60; PULSE 52; RESP 12; O2SAT 99
[2021-04-06 16:10] VITALS: BP 131/59; PULSE 49; RESP 15; TEMP 36.1; O2SAT 99
== END 2021-04-06 16:15 | disposition home or self-care (01) ==
PROVIDERS: PCP Student in an Organized Health Care Education/Training Program; Referring Provider Physical Medicine & Rehabilitation; Visit Provider Physical Medicine & Rehabilitation
DX: M54.16 Radiculopathy, lumbar region (principal); M51.26 Other intervertebral disc displacement, lumbar region; M48.061 Spinal stenosis, lumbar region without neurogenic claudication
CPT/HCPCS: 62323; J0702; J1100; J2250; J3010

== ENCOUNTER → 2021-08-24 11:51 | Outpatient (CLI) | payer MEDICARE, SELFPAY ==
[2021-01-20 11:46] VITALS: BMI 30.2
[2021-08-24 12:47] LABS: Hemoglobin A1C% w Est Avg Glu 7.4 % (4.0-6.0)
== END ==
PROVIDERS: PCP Student in an Organized Health Care Education/Training Program; Referring Provider Student in an Organized Health Care Education/Training Program; Visit Provider Student in an Organized Health Care Education/Training Program
DX: R73.9 Hyperglycemia, unspecified (principal)
CPT/HCPCS: 36415; 83036

== ENCOUNTER → 2022-03-22 10:52 | Outpatient (CLI) | payer MEDICARE, SELFPAY ==
[2021-01-20 11:46] VITALS: BMI 30.2
--- NOTE | 2022-03-22 | DI.MG.S_ITS ---
BILATERAL DIGITAL SCREENING MAMMOGRAM 3D/2D WITH CAD: 03/22/2022 CLINICAL: Routine screening. Baseline by default. No prior exams were available for comparison. The tissue of both breasts is predominantly fatty. Current study was also evaluated with a Computer Aided Detection (CAD) system. There are benign calcifications in both breasts. There also are benign vascular calcifications in both breasts. No significant masses, calcifications, or other findings are seen in either breast. IMPRESSION: BENIGN There is no mammographic evidence of malignancy. A 1 year screening mammogram is recommended. This exam was interpreted at Station ID: [id number]. NOTE: For mammograms, a report in lay terms will be sent to the patient. Approximately 15% of breast malignancies will not be visualized mammographically. In the management of a palpable breast mass, a negative mammogram must not discourage biopsy of a clinically suspicious lesion. Electronically Signed By: Zahira jasso/gabrielle:03/22/2022 12:48:35 letter sent: Normal Exam ACR BI-RADS Category 2: Benign Finding(s) [id number]
== END ==
PROVIDERS: PCP Student in an Organized Health Care Education/Training Program; Referring Provider Student in an Organized Health Care Education/Training Program; Visit Provider Student in an Organized Health Care Education/Training Program
DX: Z12.31 Encounter for screening mammogram for malignant neoplasm of breast (principal)
CPT/HCPCS: 77063; 77067

== ENCOUNTER → 2022-04-12 09:01 | Outpatient (CLI) | payer MEDICARE, SELFPAY ==
[2021-01-20 11:46] VITALS: BMI 30.2
--- NOTE | 2022-04-12 09:03 | DI.RAD.S_ITS ---
PROCEDURE: FL BARIUM SWALLOW W SPEECH INDICATIONS: Dysphagia COMPARISON: None. TECHNIQUE: Examination was conducted in conjunction with speech pathology per standard protocol. In the lateral projection, filming was performed of the patient swallowing. AP projection filming may also be performed with patient swallowing. COMPARISON: FINDINGS: Function: The oral preparatory phase is elongated. The subsequent oral propulsive phase, pharyngeal phase, and esophageal phase of swallowing also appear normal with all proffered substances. No laryngotracheal penetration or aspiration. No pathologic vallecular pooling. 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 No cervical esophageal webs. No Zenker's diverticulum. No strictures. IMPRESSION: 1. Cricopharyngeal bar. 2. No laryngeal penetration nor aspiration. Dictated by: Daryl Thomas M.D. on 04/12/2022 at 11:10 Approved by: Daryl Thomas M.D. on 04/12/2022 at 11:11
--- NOTE | 2022-04-12 12:32 | ST.SWALLOW ---
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 Ulises Alva Reason for Referral Dysphagia Setting Setting Outpatient Care Patient Information Identification Type Name,ID Card Patient History The pt is an 87-yr female with complaints of sticking sensation with food and large pills, occasionally with liquid. She identified textures such as rice as particularly difficult. Onset was several years ago, worsening recently. The pt is edentulous. She has dentures but is unable to use them while eating, apparently d/t hyperactive gag reflex and fear of spitting them out. She was not wearing them during the study. Relevant PMHx: Type 2 Diabetes , scoliosis, lumbar facet arthropathy and associated chronic back pain, COPD, asthma, allergies, and hearing loss. Subjective Observations The pt arrived on time accompanied by her daughter who was not present during the evaluation. The pt was ambulated by transfer chair but able to stand for a short time while holding a long handled portable step stool, sufficient for brief a/p viewing. She provided case history supplemental to medical records. She expressed concern of gagging on the barium and was provided an emesis bag. Patient Positioning Position View Lat-A/P Imaging Lateral View Textures Administered Trials Presented Thin Liquid via Spoon,Thin Liquid via Cup,[place] Liquid via Spoon,[place] Liquid via Cup,Honey Liquid via Spoon, Dysphagia Blenderized Textures ,Regular Textures Oral Phase Source: MBSIMP (TM) (C) Bolus Specific Scoring Grid Lip Closure WFL Tongue Control During Bolus Hold Mild Impairment Bolus Prep/Mastication Moderate Impairment Bolus Transport/Lingual Motion Moderate Impairment A/P Lingual Propulsion Delay Yes Oral Residue WFL Residue Clearing No Impairment (WNL) Nasal Regurgitation No Additional Oral Phase Observations Oral Peripheral Exam: Features were symmetrical and WNL of strength, coordination and ROM . Pt was edentulous. Oral prep phase: Mildly extensive d/t edentulous status and mild lingual weakness observed with liquids , honey-thick and pudding trials. The pt was unable to masticate a small bite of shortbread cookie with barium paste, eventually spitting it out. Increased effort for oral prep was required as bolus bulk increased, seemingly contributed by threat of gag reflex, which did not fully trigger throughout the study. Oral swallow phase: The pt exhibited frequent difficulty initiating a/p transit with occ lingual rocking. Solid boluses propelled to the oropharynx or vallecula with a brief hold there prior to swallow reflex. Once swallow was initiated, however, the bolus transferred rapidly and completely from oral to pharyngeal cavities. The pt reported sensing a hesitation in propulsion from oral to pharyngeal cavities, which was present. Oral clearance was very good with only occasional trace residue that cleared with subsequent swallow. Air bubbles were observed between the tongue and hard palate with liquids during oral prep phase, and air was observed within the bolus in both oral and pharyngeal swallow phases. This resulted in extensive belching at the end of the study. Pharyngeal Phase Source: MBSIMP (TM) (C) Bolus Specific Scoring Grid Delayed Initiation of Pharyngeal Swallow Yes: As described above Soft Palate Elevation No Impairment (WNL) Tongue Base Strength/Range of Motion No Impairment (WNL) Residue Along the Tongue Base Yes: Trace, WFL Clearance of Residue Along Tongue Base No Impairment (WNL) Laryngeal Elevation No Impairment (WNL) Anterior Hyoid Movement No Impairment (WNL) Epiglottic Range of Motion No Impairment (WNL) Vallecular Residue No Laryngeal Vestibular Closure No Impairment (WNL) Pharyngeal Stripping Wave No Impairment (WNL) Pharyngeal Contraction No Impairment (WNL) Posterior Pharyngeal Wall Residue No Upper Esophageal Sphincter Opening No Impairment (WNL) Residue in the Pyriform Sinuses No Esophageal Clearance Upright Position WFL Pharyngoesophageal Backflow Observed No Additional Pharyngeal Phase Observations Pharyngeal swallow phase was WNL. No airway compromise was observed. Pharyngeal clearance was excellent with no obvious cause of sticking sensation. A small cricopharyngeal bar was observed, which did not impede bolus flow. The pt did exhibit mild cough following consecutive sips of liquid, though her airway and pharynx were clear. A/P View Textures Administered Trials Presented [place] Liquid via Cup A/P View Observations Pharyngeal Contraction WFL Esophageal Clearance Upright Position No Impairment (WNL) Additional Observations Mild curvature of the esophagus was observed, likely secondary to scoliosis. NTL passed to the stomach without hesitation. Due to the pt's limited ability to stand, trials were limited to NTL only. Clinical Impressions Dysphagia Type Mild oral dysphagia; Mild- moderate aerophagia Findings The pt presents with mild oral dysphagia secondary primarily to edentulous status which limits her ability to masticate solids effectively. Mild lingual weakness and hyperactive gag reflex further contribute to dysphagia symptoms, including delayed initiation of a/p propulsion and swallow trigger. Collection of air was also observed with intake of liquids, which resulted in excessive belching at the end of the study. The pt reports this is typical. Suspect difficulty with textures such as rice are d/t an inability to masticate sufficiently. Recommend soft moist foods, dysphagia mechanical texture. Rehabilitation Potential Excellent Patient Appropriate for Therapy Yes: Pt may benefit from short course of dysphagia/ aerophagia tx Recommendations Diet Liquids Order Thin Diet Order Dysphagia Mechanical Medication Recommendation As Tolerated,One at a Time Comments Recommend splitting pills to reduce size, liquid medication when possible Additional Dietary Needs Chopped Food Aspiration Precautions Recommended Precautions Upright at 90 Degrees,Small Bites/Sips Treatment Plan Therapy Recommendations Outpatient Speech Therapy Short Term Goals Treatment to target pt education, strengthening of oral musculature, and strategies to reduce consumption of air with oral intake. Correction Goals The pt will tolerate least restrictive diet to meet her nutrition and hydration needs and increase comfort with oral intake. The pt will minimize consumption of air with oral intake.
== END ==
PROVIDERS: PCP Student in an Organized Health Care Education/Training Program; Referring Provider Student in an Organized Health Care Education/Training Program; Visit Provider Student in an Organized Health Care Education/Training Program
DX: R13.10 Dysphagia, unspecified (principal)
CPT/HCPCS: 74230; 92611

== ENCOUNTER → 2022-05-02 12:04 | Outpatient (CLI) | payer MEDICARE, SELFPAY ==
[2021-01-20 11:46] VITALS: BMI 30.2
== END ==
PROVIDERS: PCP Student in an Organized Health Care Education/Training Program; Referring Provider Student in an Organized Health Care Education/Training Program; Visit Provider Student in an Organized Health Care Education/Training Program
DX: E11.9 Type 2 diabetes mellitus without complications (principal)
CPT/HCPCS: 36415; 83036

== ENCOUNTER 2022-06-30 09:36 | Outpatient (CLI) | payer MEDICARE, SELFPAY ==
[2021-01-20 11:46] VITALS: BMI 30.2
--- NOTE | 2022-06-30 09:39 | DI.RAD.S_ITS ---
PROCEDURE: PAIN L INTERLAMINAR/CAUDAL INJ INDICATIONS: SPONDYLOSIS COMPARISON: [facility], XA, PAIN L INTERLAMINAR/CAUDAL INJ, 04/06/2021, 15:55. FINDINGS: Fluoroscopic spot filming was performed to verify placement of a spinal needle at the L4-L5 level, as labeled on the films. Appropriate location of the needle tip was confirmed by injection of iodinated contrast. IMPRESSION: Intraprocedural examination within normal limits. Dictated by: Freeman Andre M.D. on 07/01/2022 at 14:14 Approved by: Freeman Andre M.D. on 07/01/2022 at 14:14
[2022-06-30 09:45] VITALS: BP 134/75; PULSE 80; RESP 16; TEMP 37.1; O2SAT 97
--- NOTE | 2022-06-30 10:03 | PC.NURSE ---
Patient declines IV and procedural sedation.
[2022-06-30 11:06] LABS: COVID19 -Nasal RAPID Negative (Negative)
[2022-06-30 11:30] VITALS: BP 154/76; PULSE 81; RESP 24; O2SAT 100
[2022-06-30] MEDS: IOPAMIDOL 15 ML VIAL 3 ML INJ (11:31)
[2022-06-30] MEDS: DEXAMETHASONE 10 MG/ML VIAL 20 MG INJ (11:31)
[2022-06-30] MEDS: BUPIVACAINE 0.25% (PF) VIAL 2 ML INJ (11:33)
[2022-06-30] MEDS: BETAMETHASONE 30 MG/5 ML MDV 6 MG INJ (11:33)
[2022-06-30 11:35] VITALS: BP 155/75; PULSE 79; RESP 22; O2SAT 100
--- NOTE | 2022-06-30 11:42 | P.PCN_ITS ---
Date/Time/Diagnoses Date of procedure: 06/30/22 Time of procedure: 11:42 Pre-procedure diagnosis: 1. HNP WITH RADICULAR FEATURES, 2. MULTILEVEL CENTRAL STENOSIS, Post-procedure diagnosis: same Procedure Notes Procedure: 1. FLUOROSCOPICALLY GUIDED CONTRAST CONTROLLED INTERLAMINAR EPIDURAL STEROID INJECTION -L4/5 Indications: Peace is referred by Dr. Alva for treatment of Bilateral Foraminal Stenosis R>L LE symptoms. Physician: Richard Willson Total Fluoroscopy time (seconds): 8 Total sedation minutes: 0 Complications: none Procedure in detail & Post-procedure care: FINDINGS Multilevel Central Spinal Stenosis with Nerve Root Compression DESCRIPTION OF PROCEDURE Fluoroscopically guided, contrast-controlled L4/5 translaminar epidural steroid injection. Following review of allergy and review of potential side effects and complications, including, but not necessarily limited to, infection, allergic reaction, local tissue breakdown, temporary as well as permanent nerve injury, paralysis, stroke and possible , the patient indicated that the patient understood and agreed to proceed. An informed consent document was signed by the patient, witnessed by a nurse, and placed in the patient's chart. Additionally, other treatment options including modalities, medications, and physical therapy were reviewed with the patient. After review of previous anaesthesic history and IV conscious sedation the patient was deemed safe to proceed with today?s procedure with IV conscious sedation as ASA class II designation. Safety time-out was performed to confirm patient ID, procedure to be performed and site of procedure. IV sedation was deemed unnecessary and thus not administered by the RN after DO order, titrated to patient comfort during the course of the procedure while the patient remained responsive to all verbal commands In the prone position, following sterile prep and drape of the lumbar region, the L4/5 translaminar space was identified fluoroscopically. The skin was anesthetized via a 25-gauge, 1.5inch needle with 1% lidocaine solution. At this point, a 22-gauge short bevel spinal needle was atraumatically introduced and advanced under fluoroscopic guidance into the region of the L4/5 translaminar space. Depth was confirmed on lateral view. Radiological data, including multiple fluoroscopic views of the lumbar spine, reveal a spinal needle at the L4/5 translaminar space. Lateral views then show placement of the needle in the epidural space. Subsequent views show contrast material flowing superiorly and inferiorly in the epidural space. No vascular or intrathecal uptake is observed. At this point, using loss of resistance technique with saline and air, the epidural space was entered. This was confirmed following negative aspiration with injection of approximately 1.5cc of Isovue 200, showing excellent epidural flow without vascular or intrathecal uptake. At this point, 1cc of 1% lidocaine solution combined with 3cc or 20mg of dexamethasone and 6mg betamethasone was injected without incident. The patient tolerated the procedure well without signs or symptoms of complications prior to transfer to the recovery area continued monitoring without incident. The patient was then transferred to the recovery area where they were observed for an appropriate period of time after the injection. The patient reported a VAS score of 6 prior to the procedure and a post- procedure VAS of 0. POST OP INSTRUCTIONS The patient was provided a Pain Log to continue to record their response to the target-specific procedure prior to follow-up visit with their referring physician. Additionally, specific post-injection care instructions and a contact number to our office were provided if concerns arise regarding possible complications associated with the procedure are suspected.
[2022-06-30 11:45] VITALS: BP 133/77; PULSE 116; RESP 19; O2SAT 98
[2022-06-30 11:50] VITALS: BP 133/73; PULSE 113; RESP 20; O2SAT 100
--- NOTE | 2022-06-30 12:12 | PC.NURSE ---
Upon return from procedure room patients HR up 10 116, ST. Patient asymptomatic. BP stable. Patient with history of Afib. Denies taking a BB but reports she doesn't know and didn't take any of her scheduled medications today. Spoke with Shirley, patient's daughter who assists with her medical care. She reports that the patient has been taken off her beta teo by her cardiology due to low HR and they are aware she runs fast at times and are ok with it. Next cardiology appt in two weeks. Shirley will monitor her vitals the rest of the night but patient and daughter are comfortable with discharge home. She did not receive any sedation. Dr. Willson aware and ok with patient discharge.
== END 2022-06-30 12:05 | disposition home or self-care (01) ==
LOC: RAD 09:37
PROVIDERS: PCP Student in an Organized Health Care Education/Training Program; Referring Provider Physical Medicine & Rehabilitation; Visit Provider Physical Medicine & Rehabilitation
DX: M51.16 Intervertebral disc disorders with radiculopathy, lumbar region (principal); M48.061 Spinal stenosis, lumbar region without neurogenic claudication; Z20.822 Contact with and (suspected) exposure to COVID-19
CPT/HCPCS: 62323; 87635; J0702; J1100; J3490

== ENCOUNTER → 2022-08-10 11:53 | Outpatient (CLI) | payer MEDICARE, SELFPAY ==
[2021-01-20 11:46] VITALS: BMI 30.2
[2022-08-10 13:06] LABS: Hemoglobin A1C% w Est Avg Glu 8.8 % (4.0-6.0)
== END ==
PROVIDERS: Family Provider Student in an Organized Health Care Education/Training Program; PCP Student in an Organized Health Care Education/Training Program; Referring Provider Internal Medicine Hematology & Oncology; Visit Provider Internal Medicine Hematology & Oncology
DX: E11.9 Type 2 diabetes mellitus without complications (principal); D59.10 Autoimmune hemolytic anemia, unspecified; D47.Z9 Other specified neoplasms of uncertain behavior of lymphoid, hematopoietic and related tissue
CPT/HCPCS: 83036

== ENCOUNTER 2022-09-19 14:30 | Outpatient (RCR) | payer MEDICARE, SELFPAY ==
[2021-01-20 11:46] VITALS: BMI 30.2
--- NOTE | 2022-09-13 17:19 | ST.OPIE ---
Visit Care Team Role Provider Type Ulises Alva MD Attending Provider Physician Family Provider Primary Care Provider Referring Provider Specialty: Internal Medicine Address: [address] [place] [address], [facility] [address], [place], [address] Email: [email or web address] Speech-Language Pathology Initial Evaluation [employer] Clinical Swallow Evaluation Start: 09/13/22 16:58 Freq: Status: Active Protocol: Document 09/13/22 16:58 ZS (Rec: 09/13/22 17:19 ZS [id number]) Clinical Swallow Evaluation Session Time Visit Start Time 14:30 Visit Stop Time 15:15 Total Visit Minutes 45 Visit Information Visit Number Initial Evaluation Plan of Care Dates 09/13/2022 - 02/03/2023 Insurance Information [facility] Referral Referring Provider Dr. Alva Reason for Referral Referral following MBS in April 2022 Setting Assessment Location Outpatient Care Visit Type Note Type Initial evaluation Next Note Type Next Note Type Treatment Note Patient Information Identification Type Name History Per 04/12/22 MBS report: Peace is an 87-year old female with complaints of sticking sensation with food and large pills, occasionally with liquid. She identified textures such as rice as particularly difficult. Onset was several years ago, worsening recently. The pt is edentulous. She has dentures but is unable to use them while eating, apparently d/t hyperactive gag reflex and fear of spitting them out. She was not wearing them during the study. Relevant PMHx: Type 2 Diabetes, scoliosis, lumbar facet arthropathy and associated chronic back pain, COPD, asthma, allergies, and hearing loss. Results of the MBS: The pt presents with mild oral dysphagia secondary primarily to edentulous status which limits her ability to masticate solids effectively. Mild lingual weakness and hyperactive gag reflex further contribute to dysphagia symptoms, including delayed initiation of a/p propulsion and swallow trigger. Collection of air was also observed with intake of liquids, which resulted in excessive belching at the end of the study. The pt reports this is typical. Suspect difficulty with textures such as rice are d/t an inability to masticate sufficiently. Recommend sof moist foods, dysphagia mechanical texture. Subjective Observations Peace arrived on time accompanied by her daughter, who was not present for the session. Peace was wearing her upper dentures but not her lower dentures, stating the lower dentures do not fit at all and the upper dentures are very loose. She added she has a dentist appointment coming up and will address denture fitting at this appointment. Pt stated she would like to know the results of the modified barium swallow study completed in April 2022 and would like to learn what she can do to fix her swallowing. Pt stated her main concern is food getting stuck and gestured to her throat, high chest (near sternum), and mid- chest (bottom of rib cage). Pt stated she is eating a regular diet at home, including salad (stated the greens often have to be pulled out of her mouth, however, she likes salad), some tender meats (stated most are too tough to chew), as well as softer foods (e.g., soup). Reported by Patient Other Symptoms Difficulty swallowing liquids, Difficulty swallowing pills, Difficulty swallowing solids, Food gets stuck Current Diet Regular,Thin liquids Objective Assessment Mental Status Alert,Responsive,Cooperative Oral Integrity WFL Dentition Missing teeth,Dentures or partials present,Upper dentures/partials,Lower dentures/partials,Poor denture or partial fitting Comment OME completed at MBS appointment on 04/12/2022. Pt's edentulous status was primary factor impacting swallow. Food and Liquid Trials Results Did not complete PO trials at this time as pt completed MBS on 04/12/2022. Findings Swallowing Function Oral phase dysphagia Severity of Swallow Impairment Mildly impaired Contributing Factors to Swallow Mastication inefficiency Impairment Prognosis Fair Based on Family support,Age, Comorbidities,Duration of symptoms/severity Comment Reviewed results of MBS and provided education on structure and function of oral mechanism. Discussed format of therapy and provided list of exercises to strengthen oral mechanism. Discussed strategies for reduced air intake when swallowing. Pt expressed interest in therapy and will try it out for a few sessions. She expressed understanding of strategies, exercises, and results of MBS. Recommend speech therapy to increase strength of oral mechanism for increased efficiency and reduce consumption of air with oral intake. Impact on Safety and Functioning Risk for inadequate nutrition/ hydration Recommendations Swallowing Treatment Yes Recommended Solids Dysphagia Mechanical Recommended Liquids Thin Safety Precautions/Swallowing Remain upright (90 degrees) Recommendations during all oral intake,Upright position at least 30 minutes after meals,Small bites and sips when eating Medication Recommendations As Tolerated Education Patient/Caregiver Education Described results of evaluation,Patient expressed understanding of evaluation, Patient expressed agreement with goals & treatment plans, Family/caregivers expressed understanding of evaluation, Family/caregivers expressed agreement with goals & treatment plans,Patient expressed understanding of safety precautions,Patient expressed understanding of feeding recommendations,Family /caregivers expressed understanding of safety precautions,Family/caregivers expressed understanding of feeding recommendations, Patient requires further education/training,Family/ caregivers require further education/training Goals Long-term Goals 1. The pt will tolerate least restrictive diet to meet her nutrition and hydration needs and increase comfort with oral intake. 2. The pt will minimize consuption of air with oral intake.
--- NOTE | 2022-09-13 17:19 | ST.OPPOC ---
Physical, Occupational & Speech Therapy At [facility] Visit Care Team Role Provider Type Ulises Alva MD Attending Provider Physician Family Provider Primary Care Provider Referring Provider Address: [address] [place] [address], [address], [address] Speech Pathology Plan of Care Plan of Care Dates 09/13/2022 - 02/03/[address] Alva Patient History Per 04/12/22 MBS report: Peace is an 87-year old female with complaints of sticking sensation with food and large pills, occasionally with liquid. She identified textures such as rice as particularly difficult. Onset was several years ago, worsening recently. The pt is edentulous. She has dentures but is unable to use them while eating, apparently d/t hyperactive gag reflex and fear of spitting them out. She was not wearing them during the study. Relevant PMHx: Type 2 Diabetes, scoliosis, lumbar facet arthropathy and associated chronic back pain, COPD, asthma, allergies, and hearing loss. Results of the MBS: The pt presents with mild oral dysphagia secondary primarily to edentulous status which limits her ability to masticate solids effectively. Mild lingual weakness and hyperactive gag reflex further contribute to dysphagia symptoms, including delayed initiation of a/p propulsion and swallow trigger. Collection of air was also observed with intake of liquids, which resulted in excessive belching at the end of the study. The pt reports this is typical. Suspect difficulty with textures such as rice are d/t an inability to masticate sufficiently. Recommend soft moist foods, dysphagia mechanical texture. Long-term Goals 1. The pt will tolerate least restrictive diet to meet her nutrition and hydration needs and increase comfort with oral intake. 2. The pt will minimize consumption of air with oral intake. Comment: Electronically Signed by: DARREL Mock 09/13/22 0296 If you are in agreement with this Plan of Care, please return a signed and dated copy. I have reviewed this Plan of Care and certify that the skilled therapy services above are required to meet the patient?s needs. Physician Signature Date Printed Name and Credentials Clinical Instructor Signature Printed Name and Credentials
--- NOTE | 2022-09-19 14:58 | ST.OPDS ---
Visit Care Team Role Provider Type Ulises Alva MD Attending Provider Physician Family Provider Primary Care Provider Referring Provider Address: [address] [place] [address], [address], [place], [address] SENIOR PROCESS ANALYST Treatment Note SENIOR PROCESS ANALYST Treatment Note Start: 09/19/22 14:46 Freq: Status: Active Protocol: Document 09/19/22 14:49 ZS (Rec: 09/19/22 14:57 ZS [id number]) Speech Pathology Treatment Note Session Time Visit Start Time 14:30 Visit Stop Time 14:45 Total Visit Minutes 15 Visit Information Visit Number 1 Plan of Care Dates 09/13/2022 - 02/03/2023 Insurance Information [facility] Setting Treatment Setting Outpatient Care Visit Type Note Type Discharge Summary General Information Patient History Per 04/12/22 MBS report: Peace is an 87-year old female with complaints of sticking sensation with food and large pills, occasionally with liquid. She identified textures such as rice as particularly difficult. Onset was several years ago, worsening recently. The pt is edentulous. She has dentures but is unable to use them while eating, apparently d/t hyperactive gag reflex and fear of spitting them out. She was not wearing them during the study. Relevant PMHx: Type 2 Diabetes, scoliosis, lumbar facet arthropathy and associated chronic back pain, COPD, asthma, allergies, and hearing loss. Results of the MBS: The pt presents with mild oral dysphagia secondary primarily to edentulous status which limits her ability to masticate solids effectively. Mild lingual weakness and hyperactive gag reflex further contribute to dysphagia symptoms, including delayed initiation of a/p propulsion and swallow trigger. Collection of air was also observed with intake of liquids, which resulted in excessive belching at the end of the study. The pt reports this is typical. Suspect difficulty with textures such as rice are d/t an inability to masticate sufficiently. Recommend soft moist foods, dysphagia mechanical texture. Subjective Identification Type Name Identification Reconciled With Medical Record Others Present Family Observations/Patient Presentation Peace arrived on time accompanied by her daughter, who was not present for the session. Peace reported exercises are going well and they are all things she was already doing. Chief Complaint(s) Swallowing Objective Nursing Home Goals 1. The pt will tolerate least restrictive diet to meet her nutrition and hydration needs and increase comfort with oral intake. 2. The pt will minimize consumption of air with oral intake. Treatment Activities Discussed HEP, results of MBS, and purpose of speech therapy . Pt stated she is not interested in continuing with speech therapy at this time as she is not bothered by burping or swallowing and already does all the exercises provided in HEP. Discussed discharge, symptoms to watch out for, and obtaining new referral if pt would like to return for speech therapy. Pt expressed agreement and understanding. Assessment Impairments Identified Swallow Assessment of Improvement Pt made minimal progress toward goals given this was first session since initial evaluation. At initial evaluation pt stated she would try out speech therapy and see how it goes. Pt was compliant with HEP and stated these are exercises she already completes. Diet is primarily restricted by ill- fitting dentures at this time. Pt is not concerned about burping or swallow at this time and is not interested in continuing with speech therapy . Given low risk of aspiration per results of MBS, pt may continue with HEP to increase comfort with oral intake and does not need to continue with outpatient speech therapy. Discharging from speech therapy due to pt request and independence in HEP. Reviewed with Patient Goals,Progress Being Made,Home Exercise Program Patient/Caregiver Understanding Good Plan Therapeutic Contents Home Exercise Program, Swallowing/Feeding Provided Patient/Caregiver Instruction Home Exercise Program,Plan of Care,Questions/Concerns Therapy Recommendations Discharge to Home Exercise Program,Discharge from Speech Therapy Reason for Discharge Pt request, pt independent in HEP
== END 2022-09-19 15:10 ==
LOC: SP 14:30
PROVIDERS: Family Provider Student in an Organized Health Care Education/Training Program; PCP Student in an Organized Health Care Education/Training Program; Referring Provider Student in an Organized Health Care Education/Training Program; Visit Provider Student in an Organized Health Care Education/Training Program
DX: R13.10 Dysphagia, unspecified (principal)
CPT/HCPCS: 92610

== ENCOUNTER → 2022-09-22 11:40 | Outpatient (CLI) | payer MEDICARE, SELFPAY ==
[2021-01-20 11:46] VITALS: BMI 30.2
--- NOTE | 2022-09-22 11:41 | DI.RAD.S_ITS ---
PROCEDURE: XR LUMBAR SPINE MIN 4V INDICATIONS: LBP s/p lifting injury TECHNIQUE: 5 views of the lumbar spine acquired, including flexion and extension views. COMPARISON: MR, MR LUMBAR SPINE WO CON, 12/25/2020, 18:53. [facility], CR, XR LUMBAR SPINE 2-3V, 11/12/2020, 13:28. FINDINGS: Bones: 5 nonrib-bearing vertebrae are present. Moderate dextroscoliosis centered at the L3 level. Significant change in L2, L3 and L4 compression fractures. Mild new compression fracture seen at the L5 level. Multilevel disc degeneration and lower lumbar spine facet joint arthropathy redemonstrated. Bones are osteopenic. No suspicious bony lesions. Soft tissues: Overlying bowel gas pattern is normal. No suspicious soft tissue calcifications. Vascular calcifications indicate atherosclerosis. IMPRESSION: 1. New mild compression fracture at the L5 level of indeterminate acuity. If acute fracture is suspected, MRI could be performed for further assessment. 2. Chronic compression fractures at the L2, L3 and L4 levels. 3. Multilevel lumbar spine spondylosis and diffuse osteopenia. Dictated by: Isacc Bowen [facility] Interpreted: Fredis Oliveira MD on 09/22/2022 at 13:11 Transcribed by: AZALIA on 09/22/2022 at 13:15 Approved by: Fredis Oliveira M.D. on 09/22/2022 at 17:09
== END ==
PROVIDERS: Family Provider Student in an Organized Health Care Education/Training Program; PCP Student in an Organized Health Care Education/Training Program; Referring Provider Physical Medicine & Rehabilitation; Visit Provider Physical Medicine & Rehabilitation
DX: S32.058A Other fracture of fifth lumbar vertebra, initial encounter for closed fracture (principal); S32.030A Wedge compression fracture of third lumbar vertebra, initial encounter for closed fracture; S32.048A Other fracture of fourth lumbar vertebra, initial encounter for closed fracture; S32.028A Other fracture of second lumbar vertebra, initial encounter for closed fracture; M47.816 Spondylosis without myelopathy or radiculopathy, lumbar region; M85.88 Other specified disorders of bone density and structure, other site; M54.50 Low back pain, unspecified; M41.9 Scoliosis, unspecified; X50.0XXA Overexertion from strenuous movement or load, initial encounter
CPT/HCPCS: 72110

== ENCOUNTER 2022-12-08 09:05 | Outpatient (CLI) | payer MEDICARE, SELFPAY ==
[2021-01-20 11:46] VITALS: BMI 30.2
--- NOTE | 2022-12-08 09:18 | DI.RAD.S_ITS ---
PROCEDURE: PAIN L INTERLAMINAR/CAUDAL INJ INDICATIONS: SPONDYLOSIS COMPARISON: [facility], CR, XR LUMBAR SPINE MIN 4V, 09/22/2022, 12:00. [facility], XA, PAIN L INTERLAMINAR/CAUDAL INJ, 06/30/2022, 11:30. FINDINGS: CS with Fluoroscopic spot filming was performed to verify placement of a spinal needle at the L4-L5 level, as labeled on the films. Appropriate location of the needle tip was confirmed by injection of iodinated contrast. IMPRESSION: Intraprocedural examination within normal limits. Dictated by: Freeman Andre M.D. on 12/08/2022 at 11:46 Approved by: Freeman Andre M.D. on 12/08/2022 at 11:47
[2022-12-08 09:37] VITALS: BP 130/70; PULSE 69; RESP 16; TEMP 36.3; O2SAT 98
[2022-12-08 09:58] VITALS: BP 163/74; PULSE 73; RESP 14; O2SAT 96
[2022-12-08 10:03] VITALS: BP 158/72; PULSE 69; RESP 17; O2SAT 96
[2022-12-08] MEDS: IOPAMIDOL 15 ML VIAL 3 ML INJ (10:05)
[2022-12-08] MEDS: BETAMETHASONE 30 MG/5 ML MDV 6 MG INJ (10:05)
[2022-12-08] MEDS: DEXAMETHASONE 10 MG/ML VIAL 20 MG INJ (10:05)
[2022-12-08] MEDS: BUPIVACAINE 0.25% (PF) VIAL 2 ML INJ (10:06)
[2022-12-08 10:08] VITALS: BP 160/74; PULSE 69; RESP 16; O2SAT 96
--- NOTE | 2022-12-08 10:17 | P.PCN_ITS ---
Date/Time/Diagnoses Date of procedure: 12/08/22 Time of procedure: 10:17 Pre-procedure diagnosis: 1. HNP WITH RADICULAR FEATURES, 2. MULTILEVEL CENTRAL STENOSIS, Post-procedure diagnosis: same Procedure Notes Procedure: 1. FLUOROSCOPICALLY GUIDED CONTRAST CONTROLLED INTERLAMINAR EPIDURAL STEROID INJECTION -L4/5 Indications: Peace is referred by Dr. Alva for treatment of Bilateral Foraminal Stenosis R>L LE symptoms. Physician: Richard Willson Total Fluoroscopy time (seconds): 10 Total sedation minutes: 0 Complications: none Procedure in detail & Post-procedure care: FINDINGS Multilevel Central Spinal Stenosis with Nerve Root Compression DESCRIPTION OF PROCEDURE Fluoroscopically guided, contrast-controlled L4/5 translaminar epidural steroid injection. Following review of allergy and review of potential side effects and complications, including, but not necessarily limited to, infection, allergic reaction, local tissue breakdown, temporary as well as permanent nerve injury, paralysis, stroke and possible , the patient indicated that the patient understood and agreed to proceed. An informed consent document was signed by the patient, witnessed by a nurse, and placed in the patient's chart. Additionally, other treatment options including modalities, medications, and physical therapy were reviewed with the patient. After review of previous anaesthesic history and IV conscious sedation the patient was deemed safe to proceed with today?s procedure with IV conscious sedation as ASA class II designation. Safety time-out was performed to confirm patient ID, procedure to be performed and site of procedure. IV sedation was deemed unnecessary and thus was not administered by the RN after DO order, titrated to patient comfort during the course of the procedure while the patient remained responsive to all verbal commands In the prone position, following sterile prep and drape of the lumbar region, the L4/5 translaminar space was identified fluoroscopically. The skin was anesthetized via a 25-gauge, 1.5inch needle with 1% lidocaine solution. At this point, a 22-gauge short bevel spinal needle was atraumatically introduced and advanced under fluoroscopic guidance into the region of the L4/5 translaminar space. Depth was confirmed on lateral view. Radiological data, including multiple fluoroscopic views of the lumbar spine, reveal a spinal needle at the L4/5 translaminar space. Lateral views then show placement of the needle in the epidural space. Subsequent views show contrast material flowing superiorly and inferiorly in the epidural space. No vascular or intrathecal uptake is observed. At this point, using loss of resistance technique with saline and air, the epidural space was entered. This was confirmed following negative aspiration with injection of approximately 1.5cc of Isovue 200, showing excellent epidural flow without vascular or intrathecal uptake. At this point, 1cc of 1% lidocaine solution combined with 3cc or 20mg of dexamethasone and 6mg betamethasone was injected without incident. The patient tolerated the procedure well without signs or symptoms of complications prior to transfer to the recovery area continued monitoring without incident. The patient was then transferred to the recovery area where they were observed for an appropriate period of time after the injection. The patient reported a VAS score of 6 prior to the procedure and a post- procedure VAS of 0. POST OP INSTRUCTIONS The patient was provided a Pain Log to continue to record their response to the target-specific procedure prior to follow-up visit with their referring physician. Additionally, specific post-injection care instructions and a contact number to our office were provided if concerns arise regarding possible complications associated with the procedure are suspected.
[2022-12-08 10:20] VITALS: BP 167/72; PULSE 82; RESP 16; O2SAT 95
[2022-12-08 10:25] VITALS: BP 164/75; PULSE 70; RESP 16; O2SAT 100
== END 2022-12-08 10:35 | disposition home or self-care (01) ==
LOC: RAD 09:07
PROVIDERS: Family Provider Student in an Organized Health Care Education/Training Program; PCP Student in an Organized Health Care Education/Training Program; Referring Provider Physical Medicine & Rehabilitation; Visit Provider Physical Medicine & Rehabilitation
DX: M51.16 Intervertebral disc disorders with radiculopathy, lumbar region (principal); M48.061 Spinal stenosis, lumbar region without neurogenic claudication
CPT/HCPCS: 62323; J0702; J1100; J3490

== ENCOUNTER 2023-01-17 15:19 | Emergency (ER) | payer MEDICARE, SELFPAY ==
[2021-01-20 11:46] VITALS: BMI 30.2
[2023-01-17 15:49] VITALS: BP 156/74; PULSE 77; RESP 16; TEMP 37.2; O2SAT 98; BMI 33.0
--- NOTE | 2023-01-17 16:58 | DI.RAD.S_ITS ---
PROCEDURE: XR PELVIS 1-2V INDICATIONS: fall TECHNIQUE: 2 view(s) of the pelvis acquired. COMPARISON: None. FINDINGS: Colonic stool contents obscure the inferior aspect of the sacrum. Right total hip arthroplasty. No fracture or suspicious bone lesion identified. Hardware is in appropriate position with normal appearance. Regional soft tissues normal. IMPRESSION: No acute finding identified. CT would be recommended if there is concern for acute fracture. Dictated by: Cornell Richter M.D. on 01/17/2023 at 17:39 Approved by: Cornell Richter M.D. on 01/17/2023 at 17:39
[2023-01-17 17:44] VITALS: PULSE 103; O2SAT 94
[2023-01-17 17:47] VITALS: BP 152/70; PULSE 105
--- NOTE | 2023-01-17 17:54 | PC.NURSE ---
MUD GRINDER NOTE joan ugalde provided @ [id number]
[2023-01-17 18:00] VITALS: BP 147/70; PULSE 94; O2SAT 99
[2023-01-17 18:30] VITALS: BP 156/87; PULSE 93; O2SAT 94
[2023-01-17 19:00] VITALS: BP 156/72; PULSE 92; RESP 23; O2SAT 97
--- NOTE | 2023-01-17 19:02 | ED.FALL ---
HPI - Fall General Chief Complaint: Fall Stated Complaint: Fall, behind hurting, shaking Time Seen by Provider: 01/17/23 18:01 Source: patient and family Mode of arrival: Wheelchair History of Present Illness HPI Narrative: Patient is an 87-year-old female history of diabetes osteoarthritis presenting today after mechanical ground level fall. She gets around sometimes by wheelchair and walker. She was going downstairs she made it down forced four stairs on the last year she slipped and fell landing on her sacrum. She was able to ambulate afterwards. She is not hit her head or lose consciousness. She is having some neck pain but has chronic ongoing issues however seems to be worse now. No numbness tingling or weakness. She denies any chest pain shortness of breath or other issues. Related Data Home Medications Medication Instructions Recorded Confirmed acetaminophen 325 mg tablet 650 mg PO BID 10/22/20 11/30/22 folic acid 800 mcg tablet 0.8 mg PO DAILY 11/09/20 11/30/22 magnesium 100 mg tablet 300 mg PO DAILY 11/09/20 11/30/22 spironolactone 25 mg tablet 25 mg PO DAILY 03/18/21 11/30/22 diltiazem HCl 180 mg 180 mg PO DAILY 12/22/22 capsule,extended release 24 hr Previous Rx's Medication Instructions Recorded alprazolam 0.25 mg tablet 0.25 mg PO BEDTIME PRN Sleep #15 10/22/20 tabs insulin lispro 100 unit/mL 10 unit (0.1 mL) SUBCUT TID #3 mL 05/02/22 subcutaneous pen escitalopram oxalate 10 mg tablet 10 mg PO DAILY #90 tabs 06/21/22 omeprazole 20 mg capsule,delayed 20 mg PO DAILY #90 caps 06/21/22 release insulin glargine U-300 conc 300 22 unit (0.0733 mL) SUBCUT DAILY 08/08/22 unit/mL (3 mL) subcutaneous pen #6 mL (Toujeo Max U-300 SoloStar) tramadol 50 mg tablet 50 mg PO BID PRN Pain (Scale Score 09/05/22 4-6) #60 tabs gabapentin 100 mg capsule 200 mg PO BID pain #360 caps 11/14/22 Allergies Allergy/AdvReac Type Severity Reaction Status Date / Time No Known Drug Allergies Allergy Verified 11/30/22 13:24 Review of Systems Review of Systems ROS Unobtainable: All systems reviewed & are unremarkable except as noted in HPI and below Patient History Medical History Abnormal chest x-ray Allergies Anemia Asthma Atrial fibrillation 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) Cardiac arrhythmia (~1959) Carpal tunnel syndrome Cervical spine disease Chicken pox Chronic back pain Compression fracture of L3 lumbar vertebra COPD (chronic obstructive pulmonary disease) Deep incisional surgical site infection Degenerative joint disease of knee Facet arthropathy, lumbar Femur fracture, right GERD (gastroesophageal reflux disease) Hearing loss History of urinary incontinence (~2018) Hypertension Lumbar radiculopathy Lumbar radiculopathy, chronic Measles Non Hodgkin's lymphoma (~2018) Osteoarthritis Osteoporosis Peripheral neuropathy [facility] fever Scoliosis Scoliosis Spinal stenosis Type 2 diabetes mellitus (~1999) Vitamin D insufficiency Surgical History Anesthesia History of carpal tunnel release History of hemiarthroplasty of hip (~09/2020) History of tonsillectomy Family History Father Stroke Mother Dermatomyositis Cancer Diabetes mellitus Hypertension Brother Cancer Diabetes mellitus Hypertension Mental health problem Sister Cancer Diabetes mellitus Hypertension History of heart disease Social History household members: none Smoking Status: Former smoker alcohol intake: never Smoking Status: Former smoker Substance Use Type: does not use Exam Initial Vital Signs Initial Vital Signs: Vital Signs Temperature 99.0 F 01/17/23 15:49 Pulse Rate 77 01/17/23 15:49 Respiratory Rate 16 01/17/23 15:49 Blood Pressure 156/74 H 01/17/23 15:49 Pulse Oximetry 98 01/17/23 15:49 Oxygen Delivery Method Room Air 01/17/23 15:49 GENERAL: Alert pleasant 87-year-old female HEENT: Head atraumatic,EOMI, pupils reactive, face symmetric, moist mucous membranes CARDIOVASCULAR: Regular rate and rhythm without murmurs, rubs or gallops. RESPIRATORY: Breath sounds equal bilaterally, no wheezes rales or rhonchi. ABDOMEN: Soft, nontender. Normoactive bowel sounds all 4 quadrants. No guarding or rebound. EXTREMITIES: Normal range of motion, no clubbing or edema. Neurovascularly intact. NEUROLOGICAL: Alert and oriented x4. SKIN: Warm, dry, no laceration, no petechiae, no rashes or lesions. Course Orders Ordered: ED Orders 01/17/23 16:58 XR pelvis 1-2V Stat Vital Signs Vital signs: Vital Signs - 8 hr 01/17/23 15:49 01/17/23 17:44 01/17/23 17:47 Temperature 99.0 F Pulse Rate 77 103 H 105 H Respiratory Rate 16 Blood Pressure 156/74 H Pulse Oximetry 98 94 Oxygen Delivery Method Room Air 01/17/23 17:47 01/17/23 18:00 01/17/23 18:00 Temperature Pulse Rate 94 H Respiratory Rate Blood Pressure 152/70 H 147/70 H Pulse Oximetry 99 Oxygen Delivery Method 01/17/23 18:30 01/17/23 18:30 Temperature Pulse Rate 93 H Respiratory Rate Blood Pressure 156/87 H Pulse Oximetry 94 Oxygen Delivery Method [facility] - Fall Imaging Data Extremity x-ray #1: Radiologist's Impression: PROCEDURE:? XR PELVIS 1-2V ? INDICATIONS:? fall ? TECHNIQUE:? 2 view(s) of the pelvis acquired.? ? COMPARISON:? None. ? FINDINGS:? ? Colonic stool contents obscure the inferior aspect of the sacrum.? Right total hip arthroplasty.? No fracture or suspicious bone lesion identified.? Hardware is in appropriate position with normal appearance.? Regional soft tissues normal. ? IMPRESSION:? No acute finding identified.? CT would be recommended if there is concern for acute fracture.? ? ? Dictated by: Cornell Richter M.D. on 01/17/2023 at 17:39 ?? [facility] Narrative Medical decision making narrative: Patient 87-year-old female with mechanical fall landing on her sacrum. Pelvis x-ray is negative. She is mildly tender in her sacral area however she is ambulatory. At this time I do not see need for CT or further imaging or workup. She is tramadol at home which generally works for her pain. Discharge Plan Departure Patient Disposition: Home Clinical Impression: Sacral pain Instructions: How to Prevent Falls Activity Restrictions/Additional Instructions: *You have been diagnosed with sacral pain *What to do: At this time it is possibly have a sacral fracture although not specifically identified here. Conservative measures only. Pain control ambulate as tolerated. Use walker and wheelchair as needed. *Continue to take medications as directed Tylenol and tramadol as previously prescribed *Follow up with your primary care provider in 2-3 days or call [phone] *Return to ER if you should have increasing pain inability to walk or any new, worsening or concerning symptoms Prescriptions: No Action insulin lispro 100 unit/mL insulin pen 10 unit SUBCUT TID MDD 30 units Qty: 3 11RF Rx Instructions: 2 units for every 50mg/dL glucose over 100. escitalopram oxalate 10 mg tablet 10 mg PO DAILY Qty: 90 3RF omeprazole 20 mg capsule,delayed release(DR/EC) 20 mg PO DAILY Qty: 90 3RF Toujeo Max U-300 SoloStar 300 unit/mL (3 mL) insulin pen 22 unit SUBCUT DAILY Qty: 6 1RF tramadol 50 mg tablet 50 mg PO BID PRN (Reason: Pain (Scale Score 4-6)) Qty: 60 3RF gabapentin 100 mg capsule 200 mg PO BID Qty: 360 0RF diltiazem HCl 180 mg capsule,extended release 24hr 180 mg PO DAILY acetaminophen 325 mg tablet 650 mg PO BID alprazolam 0.25 mg tablet 0.25 mg PO BEDTIME PRN (Reason: Sleep) Qty: 15 5RF magnesium 100 mg Tablet 300 mg PO DAILY folic acid 800 mcg Tablet 0.8 mg PO DAILY spironolactone 25 mg Tablet 25 mg PO DAILY Referrals: Ulises Alva MD [Primary Care Provider] - Stand Alone Forms: Patient Portal/API
== END 2023-01-17 19:35 | disposition home or self-care (01) ==
PROVIDERS: Emergency Provider Emergency Medicine; Family Provider Student in an Organized Health Care Education/Training Program; PCP Student in an Organized Health Care Education/Training Program
DX: M53.3 Sacrococcygeal disorders, not elsewhere classified (principal); M54.2 Cervicalgia; W18.30XA Fall on same level, unspecified, initial encounter
CPT/HCPCS: 72170; 99281; 99283

== ENCOUNTER → 2023-01-23 13:40 | Outpatient (CLI) | payer MEDICARE, SELFPAY ==
[2021-01-20 11:46] VITALS: BMI 30.2
--- NOTE | 2023-01-23 13:42 | DI.RAD.S_ITS ---
4PROCEDURE: XR KNEE LT 4V INDICATIONS: LEFT KNEE PAIN TECHNIQUE: 3 views of the knee were acquired. COMPARISON: [facility], CR, XR KNEE RT 3V, 03/11/2021, 15:05. FINDINGS: Bones: No fractures or dislocations. No suspicious bony lesions. Tricompartmental joint space narrowing with associated osteophytosis. Subchondral sclerosis of the medial tibial plateau. Soft tissues: Moderate joint effusion. No suspicious soft tissue calcifications. IMPRESSION: Moderate tricompartmental osteoarthritis. Moderate knee joint effusion. Dictated by: Bonifacio Falcon M.D. on 01/23/2023 at 16:13 Approved by: Bonifacio Falcon M.D. on 01/23/2023 at 16:14
--- NOTE | 2023-01-23 13:42 | DI.RAD.S_ITS ---
PROCEDURE: XR KNEE RT 4V INDICATIONS: RIGHT KNEE PAIN TECHNIQUE: 3 views of the knee were acquired. COMPARISON: [facility], , XR KNEE RT 3V, 03/11/2021, 15:05. FINDINGS: Bones: No fractures or dislocations. No suspicious bony lesions. Tricompartmental joint space narrowing with associated osteophytosis. Mild sclerosis and lucency of the medial tibial plateau. Sclerosis of the lateral tibial plateau. Soft tissues: Large joint effusion. No suspicious soft tissue calcifications. IMPRESSION: Mild sclerosis and lucency of the medial tibial plateau, which may indicate subacute fracture or avascular necrosis. Consider knee MRI for confirmation. Moderate tricompartmental osteoarthritis. Large knee joint effusion. Dictated by: Bonifacio Falcon M.D. on 01/23/2023 at 16:14 Approved by: Bonifacio Falcon M.D. on 01/23/2023 at 16:15
== END ==
PROVIDERS: Family Provider Student in an Organized Health Care Education/Training Program; PCP Student in an Organized Health Care Education/Training Program; Referring Provider Physical Medicine & Rehabilitation; Visit Provider Physical Medicine & Rehabilitation
DX: M17.0 Bilateral primary osteoarthritis of knee (principal); M25.561 Pain in right knee; M25.562 Pain in left knee; M25.461 Effusion, right knee; M25.462 Effusion, left knee
CPT/HCPCS: 73562

== ENCOUNTER → 2023-02-17 13:19 | Outpatient (CLI) | payer MEDICARE, SELFPAY ==
[2021-01-20 11:46] VITALS: BMI 30.2
[2023-02-17 14:09] LABS: Add Manual Diff / Slide Review NO; Basophils Absolute Auto 0 /uL (0-100); Basophils Percent Auto 0.7 % (0-2); Eosinophils Absolute Auto 100 /uL (0-450); Eosinophils Percent Auto 3.4 % (2-4); Hematocrit 34.5 % (36-46); Hemoglobin 12.3 g/dL (12.0-16.0); Lymphocytes Absolute Auto 900 /uL (1100-4500); Lymphocytes Percent Auto 26.2 % (25-40); Mean Corpuscular HGB Conc 35.8 % (30-36); Mean Corpuscular Volume 89.5 fL (80-100); Monocytes Absolute Auto 400 /uL (0-900); Monocytes Percent Auto 12.6 % (3-14); Neutrophils Absolute Auto 1900 /uL (1500-7000); Neutrophils Percent Auto 57.1 % (50-75); Platelet Count 137 X10^3/uL (150-400); Red Blood Cell Count 3.85 X10^6/uL (4.0-5.2); Red Cell Distribution Width 13.7 % (11.6-14.8); White Blood Cell Count 3.4 X10^3/uL (4.5-11.0)
[2023-02-17 14:22] LABS: Alanine Aminotransferase 25 IU/L (<35); Albumin 3.4 g/dL (3.5-5.0); Albumin Globulin Ratio 1.6 (1.0-2.8); Alkaline Phosphatase 108 U/L (38-126); Aspartate Aminotransferase 15 IU/L (14-36); BUN Creatinine Ratio 18.2 (6-22); Bilirubin Total 1.7 mg/dL (0.2-1.3); Blood Urea Nitrogen 14 mg/dL (7-17); Calcium 8.8 mg/dL (8.4-10.2); Carbon Dioxide 30 mmol/L (22-32); Chloride 102 mmol/L (98-107); Estimated Glomerular Filt Rate > 60 mL/min (>60); Globulin 2.1 g/dL (1.7-4.1); Glucose 220 mg/dL (80-110); HEMOLYSIS < 15 (0-50); Lactate Dehydrogenase 145 U/L (120-246); Potassium 4.6 mmol/L (3.4-5.1); Sodium 137 mmol/L (137-145); Total Protein 5.5 g/dL (6.3-8.2)
[2023-02-17 14:53] LABS: Creatinine Urine Random 264.4 mg/dL
[2023-02-17 14:58] LABS: Microalbumi Creatinin Ratio Ur 9.8 ug/mg CR (<30); Microalbumin Urine Random 2.6 mg/dL (0-1.6)
[2023-02-18 03:03] LABS: x Labcorp Estim. Avg Glu (eAG) 197 mg/dL (.); x Labcorp Hemoglobin A1c 8.5 % (4.8-5.6)
[2023-02-18 04:13] LABS: Haptoglobin 108 mg/dL (41-333)
== END ==
PROVIDERS: Internal Medicine Hematology & Oncology; Family Provider Student in an Organized Health Care Education/Training Program; PCP Student in an Organized Health Care Education/Training Program; Referring Provider Student in an Organized Health Care Education/Training Program; Visit Provider Student in an Organized Health Care Education/Training Program
DX: D47.Z9 Other specified neoplasms of uncertain behavior of lymphoid, hematopoietic and related tissue (principal); D59.10 Autoimmune hemolytic anemia, unspecified; E11.69 Type 2 diabetes mellitus with other specified complication; Z79.4 Long term (current) use of insulin
CPT/HCPCS: 36415; 80053; 82043; 82570; 83010; 83036; 83615; 85025

== ENCOUNTER → 2023-09-22 11:26 | Outpatient (CLI) | payer MEDICARE, SELFPAY ==
[2021-01-20 11:46] VITALS: BMI 30.2
--- NOTE | 2023-09-22 11:27 | DI.RAD.S_ITS ---
PROCEDURE: XR THORACIC SPINE 3V INDICATIONS: Right thoracic radiculopathy TECHNIQUE: 3 views of the thoracic spine were acquired. COMPARISON: None. FINDINGS: Bones: Bones are demineralized. Multilevel degenerative changes with disc height loss, endplate sclerosis and osteophytosis. 12 pairs of ribs are noted, and appear intact where visualized. Age indeterminate compression fracture of T12 vertebral body. Soft tissues: No paravertebral stripe thickening. IMPRESSION: Age indeterminate compression fracture of T12 vertebral body. Approved by: Soni Yarbrough M.D. on 09/22/2023 at 14:10
== END ==
PROVIDERS: Family Provider Student in an Organized Health Care Education/Training Program; PCP Internal Medicine; Referring Provider Physical Medicine & Rehabilitation; Visit Provider Physical Medicine & Rehabilitation
DX: M54.14 Radiculopathy, thoracic region (principal); M17.0 Bilateral primary osteoarthritis of knee; S32.030A Wedge compression fracture of third lumbar vertebra, initial encounter for closed fracture; R00.1 Bradycardia, unspecified; M41.25 Other idiopathic scoliosis, thoracolumbar region; D47.Z9 Other specified neoplasms of uncertain behavior of lymphoid, hematopoietic and related tissue
CPT/HCPCS: 72072; 99214

== ENCOUNTER → 2023-09-25 15:47 | Outpatient (CLI) | payer MEDICARE, SELFPAY ==
[2021-01-20 11:46] VITALS: BMI 30.2
--- NOTE | 2023-09-25 15:48 | DI.MRI.S_ITS ---
PROCEDURE: MR THORACIC SPINE WO CON INDICATIONS: T12 fx TECHNIQUE: Noncontrast sagittal T1 spine echo and T2 fast spin echo, sagittal STIR, and T2 fast spin echo through the thoracic spine. COMPARISON: [facility], CR, XR LUMBAR SPINE MIN 4V, 09/22/2022, 12:00. [facility], CR, XR THORACIC SPINE 3V, 09/22/2023, 11:40. [facility], CR, XR CHEST 2V, 11/12/2020, 13:28. FINDINGS: Image quality: Excellent. Alignment and Curvature: There is normal bony alignment. Bone Marrow: Marrow is of normal overall signal. No acute vertebral body compression fractures. The moderately severe inferior endplate compression fracture of T12 is chronic. There is subtle anterior vertebral body height loss of multiple contiguous thoracic vertebral bodies resulting in increased thoracic kyphosis. Spinal Cord: Visualized spinal cord is normal in size and signal. Paraspinous Soft Tissues: No paravertebral masses. Miscellaneous: There is prominent facet arthropathy at T11-T12 bilaterally, as well as facet arthropathy at T8-T9, T9-T10, and T12-L1. There is severe bilateral foraminal narrowing at T11-T12 with foraminal T11 nerve root impingement bilaterally. There is also a degree of foraminal narrowing at T9-T10 and T10-T11. There is diffuse disc bulge at T11-T12 without significant canal stenosis. There is no canal stenosis in the thoracic spine noted. IMPRESSION: 1. The T12 compression fracture is old. There are no acute compressions. 2. Multilevel lower thoracic facet arthropathy patent. Severe bilateral foraminal narrowing at T11-T12. Dictated by: Enzo Lantigua M.D. on 09/26/2023 at 9:22 Approved by: Enzo Lantigua M.D. on 09/26/2023 at 9:25
== END ==
PROVIDERS: Family Provider Student in an Organized Health Care Education/Training Program; PCP Internal Medicine; Referring Provider Physical Medicine & Rehabilitation; Visit Provider Physical Medicine & Rehabilitation
DX: M47.24 Other spondylosis with radiculopathy, thoracic region (principal); M48.04 Spinal stenosis, thoracic region; M51.14 Intervertebral disc disorders with radiculopathy, thoracic region; S22.080S Wedge compression fracture of T11-T12 vertebra, sequela
CPT/HCPCS: 72146

== ENCOUNTER 2023-10-12 09:03 | Outpatient (CLI) | payer MEDICARE, SELFPAY ==
[2021-01-20 11:46] VITALS: BMI 30.2
[2023-10-12] VITALS (9 sets, daily range): BP systolic 122–157; BP diastolic 61–92; PULSE 70–108; RESP 14–22; TEMP 36.8; O2SAT 95–99
--- NOTE | 2023-10-12 | DI.RAD.S_ITS ---
PROCEDURE: PAIN C/T INTERLAMINAR INJECT INDICATIONS: Radiculopathy, thoracic region COMPARISON: None. FINDINGS: Fluoroscopic spot filming was performed to verify placement of spinal needles at the bilateral T11-T12 level(s), as labeled on the films. Appropriate location(s) of the needle tip(s) was confirmed by injection of iodinated contrast. IMPRESSION: Fluoroscopic support for transforaminal epidural steroid injections at T11-12. Please see separate procedure note for further details. Dictated by: Edgar Fleming M.D. on 10/12/2023 at 10:55 Approved by: Edgar Fleming M.D. on 10/12/2023 at 10:56
[2023-10-12] MEDS: MIDAZOLAM 2 MG/2 ML VIAL 1 MG IV (05:00)
[2023-10-12] MEDS: iopamidoL 15 ML VIAL 3 ML INJ (10:10)
[2023-10-12] MEDS: BUPIVACAINE 0.25% (PF) VIAL 1 ML INJ (10:11)
[2023-10-12] MEDS: DEXAMETHASONE 10 MG/ML VIAL 20 MG INJ (10:12)
--- NOTE | 2023-10-12 10:26 | P.PCN_ITS ---
Date/Time/Diagnoses Date of procedure: 10/12/23 Time of procedure: 10:26 Pre-procedure diagnosis: 1. FORAMINAL STENOSIS WITH LE SYMPTOMS Post-procedure diagnosis: same Procedure Notes Procedure: 1. FLUOROSCOPICALLY GUIDED CONTRAST CONTROLLED TRANSFORAMINAL EPIDURAL STEROID INJECTION - RIGHT T11/12 TFESI Indications: Peace is referred by Dr. Pritchard for treatment of Foraminal Stenosis with Right thoracic Symptoms Physician: Richard Willson Total Fluoroscopy time (seconds): 12 Total sedation minutes: 15 Complications: none Procedure in detail & Post-procedure care: FINDINGS Foraminal Nerve Root Compression secondary to disc disease and facet hypertrophy DESCRIPTION OF PROCEDURE Following review of allergy and review of potential side effects and complications, including, but not necessarily limited to, infection, allergic reaction, local tissue breakdown, stroke, temporary or permanent nerve injury, paralysis, and possible , the patient indicated that the patient understood and agreed to proceed. An informed consent document was signed by the patient, witnessed by a nurse, and placed in the patient's chart. Additionally, other treatment options including medications, modalities, and physical therapy were reviewed with the patient. After review of previous anaesthesic history and IV conscious sedation the patient was deemed safe to proceed with today?s procedure with IV conscious sedation as ASA class II designation. Safety time-out was performed to confirm patient ID, procedure to be performed and site of procedure. IV sedation was accomplished with a combination of 1mg of Versed was administered by the RN after DO order, titrated to patient comfort during the course of the procedure while the patient remained responsive to all verbal commands In the prone position following sterile prep and drape of the lumbar region, the right T11/12 posterior neuroforamen was identified fluoroscopically. The skin was anesthetized via a 25-gauge 1.5-inch needle with 1% lidocaine solution. At this point, a 25-gauge 3.5-inch spinal needle was atraumatically introduced and advanced under fluoroscopic guidance through the posterior right T11/12 neuroforamen to approximately the anterior aspect of the canal. Depth was confirmed on lateral view. Following negative aspiration, injection of approximately 1.5cc of Isovue 200 under live fluoroscopy in the AP view confirmed excellent flow along the nerve root, into the epidural space without vascular or intrathecal uptake observed Radiological data, including multiple fluoroscopic views reveal the needle placement in the right T11/12 posterior neuroforamen. Subsequent views show flow of contrast material flowing superiorly and inferiorly along the nerve root confirming epidural flow. Subsequently, a test dose of 1.5cc of 1% lidocaine solution was administered and patient was observed for signs or symptoms of complications, including abdominal pain, shortness of breath, bilateral upper or lower extremity weakness, nausea and vomiting, prior to steroid injection. At this point, a total of 2cc or 20mg of dexamethasone was injected without incident. The procedure tolerated the procedure well without signs or symptoms of complications prior to transfer to the recovery area continued monitoring without incident. The patient was then transferred to the recovery area where they were observed for an appropriate time after the injection. The patient reported a VAS score of 8 prior to the procedure and a post- procedure VAS of 0. POST OP INSTRUCTIONS The patient was provided a Pain Log to continue to record their response to the target-specific procedure prior to follow-up visit with their referring physician. Additionally, specific post-injection care instructions and a contact number to our office were provided if concerns arise regarding possible complications associated with the procedure are suspected.
== END 2023-10-12 10:51 | disposition home or self-care (01) ==
PROVIDERS: Family Provider Student in an Organized Health Care Education/Training Program; PCP Internal Medicine; Referring Provider Physical Medicine & Rehabilitation; Visit Provider Physical Medicine & Rehabilitation
DX: M48.04 Spinal stenosis, thoracic region; M51.14 Intervertebral disc disorders with radiculopathy, thoracic region; M47.24 Other spondylosis with radiculopathy, thoracic region
CPT/HCPCS: 62321; 99152; J1100; J2250; J3490

== ENCOUNTER → 2023-10-25 11:33 | Outpatient (CLI) | payer MEDICARE, SELFPAY ==
[2021-01-20 11:46] VITALS: BMI 30.2
[2023-10-25 12:07] LABS: Hematocrit 35.7 % (36-46); Hemoglobin 12.7 g/dL (12.0-16.0); Mean Corpuscular HGB Conc 35.5 % (30-36); Mean Corpuscular Hemoglobin 32.2 PG (26-34); Mean Corpuscular Volume 90.8 fL (80-100); Platelet Count 142 X10^3/uL (150-400); Red Blood Cell Count 3.93 X10^6/uL (4.0-5.2); Red Cell Distribution Width 13.2 % (11.6-14.8); White Blood Cell Count 4.6 X10^3/uL (4.5-11.0)
[2023-10-25 12:39] LABS: Hemoglobin A1C% w Est Avg Glu 7.5 % (4.0-6.0)
[2023-10-25 12:52] LABS: Alanine Aminotransferase 12 IU/L (<35); Albumin 3.6 g/dL (3.5-5.0); Albumin Globulin Ratio 1.6 (1.0-2.8); Alkaline Phosphatase 63 U/L (38-126); Aspartate Aminotransferase 33 IU/L (14-36); BUN Creatinine Ratio 22.8 (6-22); Bilirubin Total 1.6 mg/dL (0.2-1.3); Blood Urea Nitrogen 13 mg/dL (7-17); Carbon Dioxide 25 mmol/L (22-32); Chloride 105 mmol/L (98-107); Cholesterol 137 mg/dL (140-199); Estimated Glomerular Filt Rate > 60 mL/min (>60); Globulin 2.3 g/dL (1.7-4.1); Glucose 178 mg/dL (80-110); HDL Cholesterol 55 mg/dL (40-60); HEMOLYSIS 19 (0-50); LDL Cholesterol Calculated 71 mg/dL (<100); Potassium 4.1 mmol/L (3.4-5.1); Sodium 137 mmol/L (137-145); Total Protein 5.9 g/dL (6.3-8.2); Triglycerides 57 mg/dL (35-150)
[2023-10-25 13:11] LABS: TSH w/ Reflex to FT4 0.95 uIU/mL (0.47-4.68)
== END ==
PROVIDERS: Family Provider Student in an Organized Health Care Education/Training Program; PCP Internal Medicine; Referring Provider Internal Medicine; Visit Provider Internal Medicine
DX: E78.2 Mixed hyperlipidemia (principal); E11.42 Type 2 diabetes mellitus with diabetic polyneuropathy; I10 Essential (primary) hypertension
CPT/HCPCS: 36415; 80053; 80061; 83036; 84443; 85027

== ENCOUNTER 2023-11-28 08:15 | Outpatient (CLI) | payer OTHER, MEDICARE, SELFPAY ==
[2021-01-20 11:46] VITALS: BMI 30.2
[2023-11-28] VITALS (9 sets, daily range): BP systolic 121–149; BP diastolic 58–85; PULSE 58–102; RESP 16–26; TEMP 36.7; O2SAT 97–100
--- NOTE | 2023-11-28 08:45 | DI.RAD.S_ITS ---
PROCEDURE: PAIN L INTERLAMINAR/CAUDAL INJ INDICATIONS: Spondylosis COMPARISON: [facility], XA, PAIN L INTERLAMINAR/CAUDAL INJ, 12/08/2022, 11:02. FINDINGS: Fluoroscopic spot filming was performed to verify placement of spinal needles at the L4-L5 level(s), as labeled on the films. Appropriate location(s) of the needle tip(s) was confirmed by injection of iodinated contrast. IMPRESSION: Procedural images for L4-L5 injection Please see procedure note for full details. Dictated by: Andrae Duvall M.D. on 11/28/2023 at 11:26 Approved by: Andrae Duvall M.D. on 11/28/2023 at 11:27
[2023-11-28] MEDS: MIDAZOLAM 2 MG/2 ML VIAL 0.5 MG IV ×2 (08:59→09:06)
[2023-11-28] MEDS: BETAMETHASONE 30 MG/5 ML MDV 6 MG INJ (09:02)
[2023-11-28] MEDS: DEXAMETHASONE 10 MG/ML VIAL INJ (09:02)
[2023-11-28] MEDS: BUPIVACAINE 0.25% (PF) VIAL 2 ML INJ (09:02)
[2023-11-28] MEDS: iopamidoL 15 ML VIAL 3 ML INJ (09:02)
--- NOTE | 2023-11-28 09:18 | P.PCN_ITS ---
Date/Time/Diagnoses Date of procedure: 11/28/23 Time of procedure: 09:18 Pre-procedure diagnosis: 1. HNP WITH RADICULAR FEATURES, 2. MULTILEVEL CENTRAL STENOSIS, Post-procedure diagnosis: same Procedure Notes Procedure: 1. FLUOROSCOPICALLY GUIDED CONTRAST CONTROLLED INTERLAMINAR EPIDURAL STEROID INJECTION -L4/5 Indications: Peace is referred by Dr. Pritchard for treatment of Bilateral Foraminal Stenosis R>L LE symptoms. Physician: Richard Willson Total Fluoroscopy time (seconds): 5 Total sedation minutes: 12 Complications: none Procedure in detail & Post-procedure care: FINDINGS Multilevel Central Spinal Stenosis with Nerve Root Compression DESCRIPTION OF PROCEDURE Fluoroscopically guided, contrast-controlled L4/5 translaminar epidural steroid injection. Following review of allergy and review of potential side effects and complications, including, but not necessarily limited to, infection, allergic reaction, local tissue breakdown, temporary as well as permanent nerve injury, paralysis, stroke and possible , the patient indicated that the patient understood and agreed to proceed. An informed consent document was signed by the patient, witnessed by a nurse, and placed in the patient's chart. Additionally, other treatment options including modalities, medications, and physical therapy were reviewed with the patient. After review of previous anaesthesic history and IV conscious sedation the patient was deemed safe to proceed with today?s procedure with IV conscious sedation as ASA class II designation. Safety time-out was performed to confirm patient ID, procedure to be performed and site of procedure. IV sedation was accomplished with a combination of 1mg of Versed was administered by the RN after DO order, titrated to patient comfort during the course of the procedure while the patient remained responsive to all verbal commands In the prone position, following sterile prep and drape of the lumbar region, the L4/5 translaminar space was identified fluoroscopically. The skin was anesthetized via a 25-gauge, 1.5inch needle with 1% lidocaine solution. At this point, a 22-gauge short bevel spinal needle was atraumatically introduced and ad vanced under fluoroscopic guidance into the region of the L4/5 translaminar space. Depth was confirmed on lateral view. Radiological data, including multiple fluoroscopic views of the lumbar spine, reveal a spinal needle at the L4/5 translaminar space. Lateral views then show placement of the needle in the epidural space. Subsequent views show contrast material flowing superiorly and inferiorly in the epidural space. No vascular or intrathecal uptake is observed. At this point, using loss of resistance technique with saline and air, the epidural space was entered. This was confirmed following negative aspiration with injection of approximately 1.5cc of Isovue 200, showing excellent epidural flow without vascular or intrathecal uptake. At this point, 1cc of 1% lidocaine solution combined with 2cc or 10mg of dexamethasone and 6mg betamethasone was injected without incident. The patient tolerated the procedure well without signs or symptoms of complications prior to transfer to the recovery area continued monitoring without incident. The patient was then transferred to the recovery area where they were observed for an appropriate period of time after the injection. The patient reported a VAS score of 8 prior to the procedure and a post- procedure VAS of 1. POST OP INSTRUCTIONS The patient was provided a Pain Log to continue to record their response to the target-specific procedure prior to follow-up visit with their referring physician. Additionally, specific post-injection care instructions and a contact number to our office were provided if concerns arise regarding possible complications associated with the procedure are suspected.
--- NOTE | 2023-11-28 09:51 | PC.NURSE ---
Patients heart rate increased to 102 Sinus tach, Patient is due for her AM medications, see med list. Denies any chest pain, SOB and H/A. Dr Willson aware and ok to d/c with instructions to take medications when gets home. Daughter Shirley was notified of heart rate and to take AM medications when gets home.
== END 2023-11-28 09:45 | disposition home or self-care (01) ==
LOC: RAD 08:16
PROVIDERS: Family Provider Student in an Organized Health Care Education/Training Program; PCP Internal Medicine; Referring Provider Physical Medicine & Rehabilitation; Visit Provider Physical Medicine & Rehabilitation
DX: M51.16 Intervertebral disc disorders with radiculopathy, lumbar region (principal); M48.061 Spinal stenosis, lumbar region without neurogenic claudication
CPT/HCPCS: 62323; 99152; J0702; J1100; J2250; J3490

== ENCOUNTER → 2023-12-21 14:28 | Outpatient (CLI) | payer OTHER, SELFPAY ==
[2021-01-20 11:46] VITALS: BMI 30.2
--- NOTE | 2023-12-21 14:30 | DI.RAD.S_ITS ---
PROCEDURE: XR LUMBAR SPINE MIN 4V INDICATIONS: BACK PAIN TECHNIQUE: 5 views of the lumbar spine were acquired, including bilateral oblique views. COMPARISON: [facility], , XR LUMBAR SPINE MIN 4V, 09/22/2022, 12:00. FINDINGS: Bones: 5 nonrib-bearing vertebrae are present. There is convex right lumbar spine scoliosis. Chronic T12, L2, L3, L4 and L5 compression fractures are stable compared to prior exam. No acute vertebral body compression fractures. Spine degenerative disc disease and facet arthropathy. No suspicious bony lesions. Soft tissues: Overlying bowel gas pattern is normal. No suspicious soft tissue calcifications. Oblique images: No pars defects. IMPRESSION: Chronic T12, L2, L3, L4 and L5 compression fractures. Multilevel degenerative disc disease. Multilevel facet arthropathy. No acute fracture. No acute osseous lesion. If symptoms and/or clinical suspicion for pathology persists, evaluation with MRI should be considered for further assessment. Dictated by: Dolores Ledesma MD, PhD on 12/21/2023 at 15:01 Approved by: Dolores Ledesma MD, PhD on 12/21/2023 at 15:03
--- NOTE | 2023-12-21 14:30 | DI.RAD.S_ITS ---
PROCEDURE: XR THORACIC SPINE 3V INDICATIONS: RIB PAIN TECHNIQUE: 3 views of the thoracic spine were acquired. COMPARISON: [facility], CR, XR THORACIC SPINE 3V, 09/22/2023, 11:40. FINDINGS: Bones: Chronic T12 compression fracture stable compared to prior exam. No acute fractures or dislocations. Convex right scoliosis of the visualized lumbar spine. Spine degenerative disc disease and facet arthropathy. No suspicious bony lesions. 12 pairs of ribs are noted, and appear intact where visualized. Soft tissues: No paravertebral stripe thickening. IMPRESSION: Chronic T12 compression fracture. Multilevel degenerative disc disease. Multilevel facet arthropathy. No acute fracture. No acute osseous lesion. If symptoms and/or clinical suspicion for pathology persists, evaluation with MRI should be considered for further assessment. Dictated by: Dolores Ledesma MD, PhD on 12/21/2023 at 15:03 Approved by: Dolores Ledesma MD, PhD on 12/21/2023 at 15:04
== END ==
PROVIDERS: Family Provider Student in an Organized Health Care Education/Training Program; PCP Internal Medicine; Referring Provider Physical Medicine & Rehabilitation; Visit Provider Physical Medicine & Rehabilitation
DX: M47.24 Other spondylosis with radiculopathy, thoracic region (principal); M51.14 Intervertebral disc disorders with radiculopathy, thoracic region; S32.000A Wedge compression fracture of unspecified lumbar vertebra, initial encounter for closed fracture; M48.55XA Collapsed vertebra, not elsewhere classified, thoracolumbar region, initial encounter for fracture; M48.56XA Collapsed vertebra, not elsewhere classified, lumbar region, initial encounter for fracture; M51.36 Other intervertebral disc degeneration, lumbar region; M47.816 Spondylosis without myelopathy or radiculopathy, lumbar region; Z87.81 Personal history of (healed) traumatic fracture
CPT/HCPCS: 72072; 72110